=== PATIENT | female | born 1965 | race Caucasian/White ===

== ENCOUNTER → 2017-03-27 10:46 | Outpatient (CLI) | payer OTHER, SELFPAY ==
[2017-03-27 12:32] LABS: Absolute Lymphocyte Count 1.79 X10^3/ul (0.83-4.51); Absolute Neutrophil Count 3.3 X10^3/uL (2.0-7.7); Basophil# 0.04 X10^3/uL; Basophil% 0.7 % (0-1); Eosinophil# 0.25 X10^3/uL; Eosinophils% 4.2 % (0-5); Hematocrit 40.2 % (37-47); Hemoglobin 13.5 g/dl (12.0-15.0); Lymphocyte # 1.79 X10^3/ul (4.0); Lymphocyte % 30.3 % (19-41); Mean Corp Hgb Conc 33.6 g/gl (32-36); Mean Corpuscular Hgb 32.9 pg (27.0-32.0); Mean Platelet Vol. 12.9 fl (6.2-12.0); Monocyte# 0.49 X10^3/uL; Monocyte% 8.3 % (0-10); Neutrophil # 3.32 X10^3/uL (2.7-7.7); Neutrophil % 56.3 % (47-70); Platelet Count 201 K/mm3 (150-450); RBC Distribution Width CV 13.3 % (11.6-14.6); RBC Distribution Width SD 46.2 fl (35.1-43.9); White Blood Count 5.9 K/mm3 (4.4-11.0)
[2017-03-27 12:36] LABS: ALB/GLOB Ratio 1.2 RATIO (0.9-2.4); AST(SGOT) 13 U/L (15-37); Alanine Aminotransfer ALT/SGPT 23 U/L (12-78); Albumin, Serum 3.7 g/dL (3.4-5.0); Alkaline Phosphatase 80 U/L (45-117); Anion Gap 9 (5-15); BUN 13 mg/dL (7-18); Calcium,Total 8.6 mg/dL (8.5-10.1); Chloride 108 mmol/L (98-107); Creatinine, Serum 0.87 mg/dL (0.55-1.02); EST Glomerular Filtration Rate 73 mL/min (>60); Est Glom Filt Rate - Afr Amer 88 mL/min (>60); Globulin 3.2 g/dL (2.2-4.2); Glucose 88 mg/dL (70-110); POSITIVE COUNT NO; POSITIVE DIFFERENTIAL NO; POSITIVE MORPHOLOGY NO; Potassium 3.8 mmol/L (3.5-5.1); Protein, Total 6.9 g/dL (6.4-8.2); Sodium Level 141 mmol/L (136-145)
== END ==
PROVIDERS: Family Provider Family Medicine; PCP Family Medicine; Visit Provider Internal Medicine Rheumatology
DX: M06.4 Inflammatory polyarthropathy (principal); L98.2 Febrile neutrophilic dermatosis [Sweet]; R51 Headache; J45.909 Unspecified asthma, uncomplicated; Z79.899 Other long term (current) drug therapy
CPT/HCPCS: 36415; 80053; 85025

== ENCOUNTER 2017-05-14 06:21 | Day surgery (SDC) | payer OTHER, SELFPAY ==
--- NOTE | 2017-05-13 22:41 | HP.PCM_ITS ---
History and Physical Date of Admission: 05/14/17 HISTORY OF PRESENT ILLNESS 51 year old woman presents with a soft tissue mass on her central upper forehead that has increased in size over the last several months and has become more raised in configuration. It is mobile. She denies any trauma. She denies any recent infection. She denies any drainage or bleeding. She denies any visual problems. She denies any headaches. PAST MEDICAL HISTORY Asthma. Breast cyst. Pneumonia. Sweet's syndrome - an RA syndrome. Hypothyroidism. Increased cholesterol. PAST SURGICAL HISTORY T&A - 1968. Bilateral bunion surgery - 1981. MEDICATIONS Proair. Ventolin. Folic Acid. Thyroid medication. Methotrexate. Trazodone. Fluticasone-Salmeterol. ALLERGIES None. SOCIAL HISTORY Patient does not smoke. Patient does not drink alcohol. FAMILY HISTORY Negative for skin cancer. Myocarditis - Mother. AIDS - Brother. Anal cancer - Brother. REVIEW OF SYSTEMS General - Denies fever, fatigue, and weight loss. ENT - Denies nasal congestion and sore throat. Eyes - Denies cataracts and glaucoma. Endocrine - Has thyroid disease. Denies excessive thirst and urination. Skin - Has an enlarging soft tissue mass central upper forehead. Musculoskeletal - Denies joint pain, joint stiffness, weakness of muscles and joints and back pain, Has arthritis. Neuro - Denies headaches. Cardiovascular - Denies chest pain. Denies fatigue. Denies shortness of breath with exertion. Psych - Denies anxiety and depression. Respiratory - Has shortness of breath and asthma and chronic cough. Gastrointestinal - Denies nausea, vomiting, diarrhea, and constipation. Hematologic - Denies abnormal bruising and bleeding. Genitourinary - Denies hematuria and urinary frequency. PHYSICAL EXAMINATION General - Alert and oriented. HEENT - PERRL. EOMI. Throat clear. On the central upper forehead is a 1.5 cm soft tissue mass. It is mobile. The skin does not appear to be adherent to the underlying soft tissue mass. Does not appear to be adherent to the underlying bone. It is raised in configuration. No ulceration. She is able to elevate her eyebrows symmetrically. Neck - Supple and nontender. No cervical adenopathy. No suspicious lesions noted. Chest wall - No suspicious lesions noted. Lungs - Clear to auscultation. Heart - Regular rate and rhythm. Abdomen - Soft and nondistended. Extremities - FROM. No axillary adenopathy. Radial pulses are palpable. No suspicious lesions noted. Neuro - CN II - XII grossly intact. ASSESSMENT 1.5 cm soft tissue mass central upper forehead. PLAN Recommend excision of this soft tissue mass central upper forehead and send it to Pathology for analysis to rule out carcinoma. Pretty commonly, these forehead soft tissue masses are submuscular in origin. Should be able to close the skin primarily. If extra skin needs to be removed, then local skin flap reconstruction would be done or possibly skin grafting. Surgery will be done under local anesthesia and IV sedation on an outpatient basis. Patient was informed of the risks and complications of the procedure including alternatives to surgery. These were discussed with her personally. She voices understanding and wishes to proceed. Some of the risks and complications were included in a form from the [employer].
[2017-05-14] VITALS (7 sets, daily range): BP systolic 108–116; BP diastolic 59–92; PULSE 73–81; RESP 16; TEMP 36.1–36.4; O2SAT 93–99; BMI 30.7
--- NOTE | 2017-05-14 08:00 | MASS_PTH ---
PATIENT: PANCHO SMITH [place] [facility] [place][id number] AGE/SX: 51/F ROOM: RE05/14/[address]: Dr. Leif Singh MD : 1965 BED: DIS: 05/14/2017 SPEC #: [id number] RECD: 05/14/17 11:06 STATUS: PRAMOD SONU #: [id number] LORELEI: 05/14/17 08:[address]: Leif Singh DEPT: SURGICAL PATHOLOGY RECD BY: Jaci Day ENTERED: 05/14/17 11:34 SP TYPE: Mass OTHR DR: Dr. Chastity Huff, DO Tissues: Skin of forehead Procedures: Decalcification bone/plaque Surgery Specimen Level IV HEADER OPERATION: Excision, mass soft tissue central upper forehead PRE-OP DIAGNOSIS: 1.5cm soft tissue mass central upper forehead TISSUE SUBMITTED: Bone cyst, central upper forehead MICROSCOPIC DIAGNOSIS Bone cyst of central upper forehead, excision: Cortical bone with mild reactive change. AM:neema 05/20/17 MICROSCOPIC DESCRIPTION Slides are reviewed. GROSS DESCRIPTION Received in fixative is one container labeled with the patient's name and designated bone cyst, central upper forehead. The specimen consists of a round piece of bone measuring 1 x 1 x 0.2 cm. The specimen will be serially sectioned after decalcification and submitted entirely in one cassette. / SJ:neema 05/14/17 TC:5 [facility]: [id number], [id number]
[2017-05-14] MEDS: Clindamycin 900 MG/50 ML BAG 75 MG IV (08:02)
[2017-05-14] MEDS: Mupirocin Ointment 22gm Tube 1 APPLIC (08:28)
--- NOTE | 2017-05-14 08:51 | PCM.IMDPSTOP ---
Immediate Post-Op Note Date of Procedure: 05/14/17 Primary Surgeon/Physician: Leif Singh director biomedical engineering: None Pre-Operative Diagnosis: 1.5 cm soft tissue mass central upper forehead. Post-Operative Diagnosis: 1.5 cm submuscular bone cystic mass central upper forehead. Surgery/Procedure Performed:: Excision 1.5 cm submuscular bone cystic mass central upper forehead with 1.5 cm complex closure. Description of Surgical Findings:: 51 year old woman presents with a soft tissue mass on her central upper forehead that has increased in size over the last several months and has become more raised in configuration. It is mobile. She denies any trauma. She denies any recent infection. She denies any drainage or bleeding. She denies any visual problems. She denies any headaches. Today the patient underwent 1.5 cm submuscular bone cyst central upper forehead with 1.5 cm complex closure. Estimated Blood Loss: 2 ml. Specimen's removed: Submuscular bone cystic mass central upper forehead to Pathology. Drains: None. Type of Anesthesia:: Local MAC - Xylocaine with epinephrine and IV sedation. - Admit VTE Documentation VTE Present on Admission: No VTE Mechan Device Prophylaxis: SCD's VTE Pharm Prophylaxis ordered?: No
--- NOTE | 2017-05-14 08:59 | PCM.DC ---
You will use the following diet at home:: No restrictions Discharge Activity: May Shower - in two days., - - keep head elevated. no heavy lifting. May shower in (days): 2 May resume sexual activity in: No Restrictions Ice area for (Minutes): 5 - as needed for facial swelling. Weight Bearing Status: Weight bearing as tolerated Lifting Restrictions: 20 lbs. Keep extremity elevated above heart level: - - head elevated. Call your doctor if your incision/area has: Continuous Slow Oozing, Sudden Increased Bleeding, Increased Pain/ Swelling, Increased Redness, Foul Smelling Discharge, Swelling at the incision site Call your doctor if you observe: Fever of 101 or Higher, Coldness, Increased Pain, Shortness of breath, Chest pain, Calf discomfort, Uncontrolled pain Suture Line Care: - - after dressing removed in two days, apply antibiotic ointment to suture line daily. Remove Dressing in (days):: 2 Cleanse incision/area with: - - may get incision wet in the shower in two days. Allergies/Adverse Reactions: Allergies No Known Allergies Allergy (Verified 05/07/17 08:12) Medications to take at Discharge fluticasone 500 mcg-salmeterol 50 mcg/dose blistr powdr for inhalation 1 inh INHALATION BID 03/31/17 folic acid 1 mg tablet 1 mg PO QDAY 03/31/17 levothyroxine 88 mcg capsule 88 mcg PO QDAY cap 03/31/17 methotrexate sodium 2.5 mg tablet 15 mg PO QWEEK tab 03/31/17 Albuterol IH (ProAir) [Proair Hfa] 1 - 2 puff INHALATION Q6H PRN PRN 05/07/17 Albuterol Inhaler [Ventolin Hfa] 1 - 2 puff INHALATION Q6H PRN PRN 05/07/17 Trazodone HCl [Desyrel] 50 mg PO QHS 05/07/17 Clindamycin HCl [Cleocin] 300 mg PO TID #15 cap 05/14/17 Oxycodone HCl/Acetaminophen [Percocet 5/325] 1 - 2 tab PO 4X/DAY PRN PRN 3 Days #20 tab 05/14/17 The following prescriptions were given: Oxycodone HCl/Acetaminophen [Percocet 5/325] 1 - 2 tab PO 4X/DAY PRN PRN 3 Days #20 tab PRN Reason: Pain Clindamycin HCl [Cleocin] 300 mg PO TID #15 cap Primary Care Physician: Chastity Huff DO [Primary Care Provider] - Please Follow Up With: Leif Singh MD When: one week. call [phone] for appt. Proposed Discharge Date: 05/14/17
--- NOTE | 2017-05-14 23:03 | OP.PCM_ITS ---
Report of Operation Date of Procedure: 05/14/17 Pre-Operative Diagnosis: 1.5 cm soft tissue mass central upper forehead. Post-Operative Diagnosis: 1.5 cm submuscular bone cystic mass central upper forehead. Surgery/Procedure Performed:: Excision 1.5 cm submuscular bone cystic mass central upper forehead with 1.5 cm complex closure. Description of Surgical Findings:: 51 year old woman presents with a soft tissue mass on her central upper forehead that has increased in size over the last several months and has become more raised in configuration. It is mobile. She denies any trauma. She denies any recent infection. She denies any drainage or bleeding. She denies any visual problems. She denies any headaches. Patient was informed of the risks and complications of the procedure including alternatives to surgery. These were discussed with her personally. She voices understanding and wishes to proceed. Some of the risks and complications were included in a form from the [employer]. 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 Specimen's removed: Submuscular bone cystic mass central upper forehead to Pathology. Drains: None. Estimated Blood Loss (mL): 2 ml. Description of Procedure: Patient was taken to OR in supine position and was given IV sedation. Her face and neck were prepped and draped in usual fashion. SCD's were placed for DVT prophylaxis. Perioperative antibiotics were given intravenously. The mass central upper forehead was infiltrated with xylocaine with epinephrine. After waiting 5 minutes for the anesthetic to take effect, a horizontal incision was made in a previous horizontal skin crease. The incision extended into the subcutaneous tissue. When I reached the frontalis muscle, there was no evidence of any subcutaneous soft tissue mass. I made a vertical incision through the muscle until the periosteum of the skull was seen. Further palpation was done and the mass appeared to be a submuscular bone cystic mass. Therefore, I used an osteotome and a mallet and tangentially excised this bone mass. After the excision, the bony base of the mass was smooth. Clinically there was no evidence of infiltration into the skull bone. The bone cystic mass was sent to Pathology for analysis to rule out carcinoma. The wound was irrigated with saline. Hemostasis was obtained with electrocautery. The wound was closed in a multiple layered complex closure repair. The frontalis muscle layer was approximated with 5-0 Monocryl figure of eight interrupted sutures. The deep dermis and subcutaneous tissue was approximated with 5-0 Monocryl interrupted sutures. The skin was approximated with 6-0 Prolene simple interrupted sutures. Steri strips were applied followed by antibiotic ointment and a small 2x2 gauze compression dressing. The length of the complex closure repair was 1.5 cm. Patient tolerated the procedure well and was sent to PACU in satisfactory condition. She will be sent home on antibiotics and pain medication. She will keep her head elevated during the initial postop period. She will followup in the office in a week for a wound check as well as for discussion of the pathology report and for removal of the sutures. Grafts/Implants Used: None. - Complications None. - Admit VTE Documentation VTE Present on Admission: No VTE Mechan Device Prophylaxis: SCD's VTE Pharm Prophylaxis ordered?: No Code Visit Surgery Charges CPT - 67424 ICD-10 - D49.2
== END 2017-05-14 10:03 | disposition home or self-care (01) ==
LOC: SDC 06:24 → AC 06:24
PROVIDERS: Family Provider Family Medicine; PCP Family Medicine; Visit Provider Surgery
PROC: (CPT 61500; principal; 2017-05-14 07:45)
DX: M85.48 Solitary bone cyst, other site (principal); E78.00 Pure hypercholesterolemia, unspecified; D68.9 Coagulation defect, unspecified; J45.909 Unspecified asthma, uncomplicated; L98.2 Febrile neutrophilic dermatosis [Sweet]; Z79.899 Other long term (current) drug therapy
CPT/HCPCS: 00210; 61500; 88305; 88311; J3010; J7120

== ENCOUNTER → 2017-06-17 08:59 | Outpatient (CLI) | payer OTHER, SELFPAY ==
[2017-06-17 09:22] LABS: Absolute Lymphocyte Count 1.66 X10^3/ul (0.83-4.51); Absolute Neutrophil Count 3.7 X10^3/uL (2.0-7.7); Basophil# 0.03 X10^3/uL; Basophil% 0.5 % (0-1); Eosinophil# 0.81 X10^3/uL; Eosinophils% 12.4 % (0-5); Lymphocyte # 1.66 X10^3/ul (4.0); Lymphocyte % 25.3 % (19-41); Mean Corp Hgb Conc 33.3 g/gl (32-36); Mean Corpuscular Hgb 32.5 pg (27.0-32.0); Mean Corpuscular Volume 97.4 fL (81-99); Mean Platelet Vol. 12.2 fl (6.2-12.0); Monocyte# 0.37 X10^3/uL; Monocyte% 5.6 % (0-10); Neutrophil # 3.66 X10^3/uL (2.7-7.7); Neutrophil % 55.9 % (47-70); POSITIVE COUNT NO; POSITIVE DIFFERENTIAL NO; POSITIVE MORPHOLOGY NO; Platelet Count 139 K/mm3 (150-450); RBC Distribution Width CV 13.4 % (11.6-14.6); Red Blood Count 4.62 M/mm3 (4.2-5.4); White Blood Count 6.6 K/mm3 (4.4-11.0)
[2017-06-17 17:47] LABS: Absolute Lymphocyte Count 2.28 X10^3/ul (0.83-4.51); Basophil# 0.04 X10^3/uL; Basophil% 0.6 % (0-1); Eosinophil# 0.16 X10^3/uL; Eosinophils% 2.3 % (0-5); Hematocrit 41.4 % (37-47); Hemoglobin 13.7 g/dl (12.0-15.0); Lymphocyte # 2.28 X10^3/ul (4.0); Lymphocyte % 32.6 % (19-41); Mean Corp Hgb Conc 33.1 g/gl (32-36); Mean Corpuscular Hgb 32.5 pg (27.0-32.0); Mean Corpuscular Volume 98.3 fL (81-99); Mean Platelet Vol. 12.9 fl (6.2-12.0); Monocyte# 0.53 X10^3/uL; Monocyte% 7.6 % (0-10); Neutrophil # 3.98 X10^3/uL (2.7-7.7); Neutrophil % 56.8 % (47-70); Platelet Count 195 K/mm3 (150-450); RBC Distribution Width CV 13.3 % (11.6-14.6); RBC Distribution Width SD 46.6 fl (35.1-43.9); Red Blood Count 4.21 M/mm3 (4.2-5.4)
[2017-06-17 17:55] LABS: POSITIVE COUNT NO; POSITIVE DIFFERENTIAL NO; POSITIVE MORPHOLOGY NO
[2017-06-17 18:32] LABS: ALB/GLOB Ratio 1.1 RATIO (0.9-2.4); AST(SGOT) 28 U/L (15-37); Alanine Aminotransfer ALT/SGPT 55 U/L (13-56); Albumin, Serum 3.8 g/dL (3.2-5.0); Alkaline Phosphatase 87 U/L (45-117); Anion Gap 6 (5-15); BUN 13 mg/dL (7-18); BUN/Creat Ratio 14.6 RATIO (10-20); Calcium,Total 9.2 mg/dL (8.5-10.1); Chloride 107 mmol/L (98-107); Creatinine, Serum 0.89 mg/dL (0.55-1.02); EST Glomerular Filtration Rate 70 mL/min (>60); Est Glom Filt Rate - Afr Amer 85 mL/min (>60); Globulin 3.4 g/dL (2.2-4.2); Glucose 76 mg/dL (74-106); Potassium 4.3 mmol/L (3.5-5.1); Protein, Total 7.2 g/dL (6.4-8.2); Sodium Level 142 mmol/L (136-145)
== END ==
PROVIDERS: Family Provider Family Medicine; PCP Family Medicine; Visit Provider Internal Medicine Rheumatology
DX: M06.4 Inflammatory polyarthropathy (principal); L98.2 Febrile neutrophilic dermatosis [Sweet]; R51 Headache; J45.909 Unspecified asthma, uncomplicated; Z79.899 Other long term (current) drug therapy
CPT/HCPCS: 36415; 80053; 85025

== ENCOUNTER → 2017-08-10 07:25 | Outpatient (CLI) | payer OTHER, SELFPAY ==
--- NOTE | 2017-08-10 07:25 | DT_ITS ---
This patient was seen during an EMR downtime August 03, 2017 - August 10, 2017. This patient may have a combination of paper and electronic documentation or all paper documentation. All documentation is viewable within the e-chart portion of [facility] for each patient visit.
--- NOTE | 2017-08-10 07:28 | BI_ITS ---
MAMMOGRAPHY - BILATERAL SCREENING REASON FOR EXAM: Female, 51 years old. Routine annual screening examination. PERTINENT HISTORY: Non-contributory. TECHNIQUE: Digital bilateral breast aggie (3D mammographic acquisition) in the CC and MLO projections. 2-D mediolateral oblique (MLO) and craniocaudad (CC) views of both breasts were obtained. CAD: Full Field Digital Mammography with Computer Added Detection was performed. COMPARISON: Comparison is made with prior examination dated October 24, 2015 and December 19, 2013. FINDINGS: Breast Composition: The breasts are heterogeneously dense, which may obscure small masses. There are no dominant masses or suspicious calcifications. No other significant abnormalities are identified. There has been no significant change since the prior study. BI/SCREENING MAMM (CAD), BILAT IMPRESSION: Stable bilateral screening mammogram. Yearly follow-up mammogram recommended. (A) ASSESSMENT CATEGORY: BIRADS Category 1: Negative. A letter regarding these results will be sent to the patient by the facility within 30 days. Approximately 10% of breast cancers are not detected by mammography. A normal mammogram should not delay biopsy of a clinically suspicious abnormality. [id number] Electronically Signed: Rhys Ojeda MD at 12:26 EDT Tel [phone], Service support ,
== END ==
PROVIDERS: Family Provider Family Medicine; PCP Family Medicine; Visit Provider Family Medicine
DX: Z12.31 Encounter for screening mammogram for malignant neoplasm of breast (principal)
CPT/HCPCS: 77063; 77067

== ENCOUNTER → 2017-09-22 09:10 | Outpatient (CLI) | payer OTHER, SELFPAY ==
[2017-09-22 10:34] LABS: Basophil# 0.02 X10^3/uL; Basophil% 0.3 % (0-1); Eosinophil# 0.13 X10^3/uL; Eosinophils% 2.1 % (0-5); Hematocrit 44.4 % (37-47); Hemoglobin 14.6 g/dl (12.0-15.0); Lymphocyte % 24.6 % (19-41); Mean Corp Hgb Conc 32.9 g/gl (32-36); Mean Corpuscular Hgb 32.2 pg (27.0-32.0); Mean Corpuscular Volume 97.8 fL (81-99); Mean Platelet Vol. 13.7 fl (6.2-12.0); Monocyte% 6.6 % (0-10); Neutrophil # 4.04 X10^3/uL (2.7-7.7); Neutrophil % 66.4 % (47-70); Platelet Count 192 K/mm3 (150-450); RBC Distribution Width CV 13.2 % (11.6-14.6); RBC Distribution Width SD 47.6 fl (35.1-43.9); Red Blood Count 4.54 M/mm3 (4.2-5.4); White Blood Count 6.1 K/mm3 (4.4-11.0)
[2017-09-22 10:35] LABS: POSITIVE COUNT NO; POSITIVE DIFFERENTIAL NO; POSITIVE MORPHOLOGY NO
[2017-09-22 11:21] LABS: AST(SGOT) 24 U/L (15-37); Alanine Aminotransfer ALT/SGPT 38 U/L (13-56); Albumin, Serum 3.7 g/dL (3.2-5.0); Alkaline Phosphatase 93 U/L (45-117); Anion Gap 7 (5-15); BUN 14 mg/dL (7-18); BUN/Creat Ratio 14.6 RATIO (10-20); Calcium,Total 9.5 mg/dL (8.5-10.1); Chloride 108 mmol/L (98-107); Creatinine, Serum 0.96 mg/dL (0.55-1.02); EST Glomerular Filtration Rate 65 mL/min (>60); Est Glom Filt Rate - Afr Amer 78 mL/min (>60); Globulin 3.8 g/dL (2.2-4.2); Glucose 76 mg/dL (74-106); Potassium 3.9 mmol/L (3.5-5.1); Protein, Total 7.5 g/dL (6.4-8.2); Sodium Level 144 mmol/L (136-145)
== END ==
PROVIDERS: Family Provider Family Medicine; PCP Family Medicine; Visit Provider Internal Medicine Rheumatology
DX: M06.4 Inflammatory polyarthropathy (principal); L98.2 Febrile neutrophilic dermatosis [Sweet]; R51 Headache; J45.909 Unspecified asthma, uncomplicated; Z79.899 Other long term (current) drug therapy
CPT/HCPCS: 36415; 80053; 85025

== ENCOUNTER → 2017-12-11 11:11 | Outpatient (CLI) | payer OTHER, SELFPAY ==
[2017-12-11 12:37] LABS: Absolute Lymphocyte Count 1.98 X10^3/ul (0.83-4.51); Absolute Neutrophil Count 4.6 X10^3/uL (2.0-7.7); Basophil# 0.05 X10^3/uL; Basophil% 0.7 % (0-1); Eosinophil# 0.16 X10^3/uL; Eosinophils% 2.2 % (0-5); Hematocrit 43.1 % (37-47); Hemoglobin 14.1 g/dl (12.0-15.0); Lymphocyte # 1.98 X10^3/ul (4.0); Lymphocyte % 27.1 % (19-41); Mean Corp Hgb Conc 32.7 g/gl (32-36); Mean Corpuscular Hgb 31.7 pg (27.0-32.0); Mean Corpuscular Volume 96.9 fL (81-99); Mean Platelet Vol. 13.5 fl (6.2-12.0); Monocyte# 0.48 X10^3/uL; Monocyte% 6.6 % (0-10); Neutrophil # 4.63 X10^3/uL (2.7-7.7); Neutrophil % 63.4 % (47-70); Platelet Count 190 K/mm3 (150-450); RBC Distribution Width CV 14.1 % (11.6-14.6); RBC Distribution Width SD 49.8 fl (35.1-43.9); Red Blood Count 4.45 M/mm3 (4.2-5.4); White Blood Count 7.3 K/mm3 (4.4-11.0)
[2017-12-11 12:38] LABS: POSITIVE COUNT NO; POSITIVE DIFFERENTIAL NO; POSITIVE MORPHOLOGY NO
[2017-12-11 13:08] LABS: AST(SGOT) 19 U/L (15-37); Alanine Aminotransfer ALT/SGPT 44 U/L (13-56); Albumin, Serum 3.6 g/dL (3.2-5.0); Alkaline Phosphatase 93 U/L (45-117); Anion Gap 8 (5-15); BUN 9 mg/dL (7-18); BUN/Creat Ratio 10.7 RATIO (10-20); Chloride 108 mmol/L (98-107); Creatinine, Serum 0.84 mg/dL (0.55-1.02); EST Glomerular Filtration Rate 75 mL/min (>60); Est Glom Filt Rate - Afr Amer 91 mL/min (>60); Globulin 3.6 g/dL (2.2-4.2); Glucose 72 mg/dL (74-106); Protein, Total 7.2 g/dL (6.4-8.2); Sodium Level 140 mmol/L (136-145)
== END ==
PROVIDERS: Family Provider Family Medicine; PCP Family Medicine; Referring Provider Internal Medicine Rheumatology; Visit Provider Internal Medicine Rheumatology
DX: M06.4 Inflammatory polyarthropathy (principal); L98.2 Febrile neutrophilic dermatosis [Sweet]; R51 Headache; J45.909 Unspecified asthma, uncomplicated; Z79.899 Other long term (current) drug therapy
CPT/HCPCS: 36415; 80053; 85025

== ENCOUNTER → 2018-03-13 08:03 | Outpatient (CLI) | payer OTHER, SELFPAY ==
[2018-03-13 08:03] VITALS: BMI 29.2
[2018-03-13 08:41] LABS: Absolute Lymphocyte Count 1.96 X10^3/ul (0.83-4.51); Absolute Neutrophil Count 2.9 X10^3/uL (2.0-7.7); Basophil# 0.04 X10^3/uL; Basophil% 0.7 % (0-1); Eosinophil# 0.24 X10^3/uL; Eosinophils% 4.2 % (0-5); Hematocrit 42.8 % (37-47); Hemoglobin 14.2 g/dl (12.0-15.0); Lymphocyte # 1.96 X10^3/ul (4.0); Lymphocyte % 34.6 % (19-41); Mean Corp Hgb Conc 33.2 g/gl (32-36); Mean Corpuscular Hgb 32.7 pg (27.0-32.0); Mean Corpuscular Volume 98.6 fL (81-99); Mean Platelet Vol. 12.5 fl (6.2-12.0); Monocyte# 0.56 X10^3/uL; Monocyte% 9.9 % (0-10); Neutrophil # 2.86 X10^3/uL (2.7-7.7); Neutrophil % 50.4 % (47-70); POSITIVE COUNT NO; POSITIVE DIFFERENTIAL NO; POSITIVE MORPHOLOGY NO; Platelet Count 179 K/mm3 (150-450); RBC Distribution Width CV 13.7 % (11.6-14.6); RBC Distribution Width SD 47.8 fl (35.1-43.9); Red Blood Count 4.34 M/mm3 (4.2-5.4); White Blood Count 5.7 K/mm3 (4.4-11.0)
[2018-03-13 08:55] LABS: ALB/GLOB Ratio 1.1 RATIO (0.9-2.4); AST(SGOT) 32 U/L (15-37); Alanine Aminotransfer ALT/SGPT 93 U/L (13-56); Albumin, Serum 3.6 g/dL (3.2-5.0); Alkaline Phosphatase 94 U/L (45-117); Anion Gap 7 (5-15); BUN 13 mg/dL (7-18); BUN/Creat Ratio 13.1 RATIO (10-20); Calcium,Total 8.9 mg/dL (8.5-10.1); Chloride 110 mmol/L (98-107); Creatinine, Serum 0.99 mg/dL (0.55-1.02); EST Glomerular Filtration Rate 62 mL/min (>60); Est Glom Filt Rate - Afr Amer 75 mL/min (>60); Globulin 3.2 g/dL (2.2-4.2); Glucose 88 mg/dL (74-106); Protein, Total 6.8 g/dL (6.4-8.2); Sodium Level 144 mmol/L (136-145)
== END ==
PROVIDERS: Family Provider Family Medicine; PCP Family Medicine; Referring Provider Internal Medicine Rheumatology; Visit Provider Internal Medicine Rheumatology
DX: M06.4 Inflammatory polyarthropathy (principal); L98.2 Febrile neutrophilic dermatosis [Sweet]; R51 Headache; J45.909 Unspecified asthma, uncomplicated; Z79.899 Other long term (current) drug therapy
CPT/HCPCS: 36415; 80053; 85025

== ENCOUNTER → 2018-04-10 10:18 | Outpatient (CLI) | payer OTHER, SELFPAY ==
[2018-03-13 08:03] VITALS: BMI 29.2
[2018-04-10 12:30] LABS: AST(SGOT) 13 U/L (15-37); Alanine Aminotransfer ALT/SGPT 24 U/L (13-56); Albumin, Serum 3.7 g/dL (3.2-5.0); Alkaline Phosphatase 110 U/L (45-117); Anion Gap 8 (5-15); BUN 14 mg/dL (7-18); BUN/Creat Ratio 13.2 RATIO (10-20); Chloride 108 mmol/L (98-107); Creatinine, Serum 1.06 mg/dL (0.55-1.02); EST Glomerular Filtration Rate 57 mL/min (>60); Est Glom Filt Rate - Afr Amer 69 mL/min (>60); Globulin 3.7 g/dL (2.2-4.2); Glucose 83 mg/dL (74-106); Protein, Total 7.4 g/dL (6.4-8.2); Sodium Level 142 mmol/L (136-145)
== END ==
PROVIDERS: Family Provider Family Medicine; PCP Family Medicine; Referring Provider Internal Medicine Rheumatology; Visit Provider Internal Medicine Rheumatology
DX: M06.4 Inflammatory polyarthropathy (principal); L98.2 Febrile neutrophilic dermatosis [Sweet]; R51 Headache; J45.909 Unspecified asthma, uncomplicated; Z79.899 Other long term (current) drug therapy
CPT/HCPCS: 80053

== ENCOUNTER → 2018-05-20 07:38 | Outpatient (CLI) | payer OTHER, SELFPAY ==
[2018-03-13 08:03] VITALS: BMI 29.2
--- NOTE | 2018-05-20 07:46 | US_ITS ---
STUDY: ABDOMINAL ULTRASOUND - RIGHT UPPER QUADRANT REASON FOR VISIT: Female, 52 years old. Elevated liver enzymes TECHNIQUE: Ultrasound evaluation of the right upper quadrant was performed with real-time and static bravo-scale imaging. TECHNICAL QUALITY: Adequate. COMPARISON: None. FINDINGS: Liver: The liver measures 14.7 cm. There is increased echogenicity consistent with fatty infiltration. The bile ducts are within normal limits. There is hepatic color flow. The direction of portal flow is hepatopetal. There is no demonstrated mass lesion. Gallbladder: Normal distended gallbladder. The gallbladder wall measures 3 mm. There is a negative sonographic Trejo's sign. There is no pericholecystic fluid. There are no gallstones. Common Bile Duct (C.B.D.): The common bile duct measures 4 mm. Pancreas: Normal size of the head, body and tail of the pancreas. There is normal echogenicity of the pancreas. There is no demonstrated pancreatic mass or cyst. Right Kidney: Normal size of the right kidney. The right kidney measures 10.6 cm. Normal renal cortex. The right cortex measures 1.3 cm. There is no demonstrated renal mass or cyst. There is no right hydronephrosis. US/Liver IMPRESSION: Slightly echogenic liver suggesting fatty steatosis Electronically Signed: Joseph Deleon DO at 10:50 EDT Tel , Service support ,
== END ==
PROVIDERS: Family Provider Family Medicine; PCP Family Medicine; Referring Provider Internal Medicine Rheumatology; Visit Provider Internal Medicine Rheumatology
DX: M06.4 Inflammatory polyarthropathy (principal); L98.2 Febrile neutrophilic dermatosis [Sweet]; R51 Headache; J45.909 Unspecified asthma, uncomplicated; Z79.899 Other long term (current) drug therapy
CPT/HCPCS: 76705

== ENCOUNTER → 2018-06-12 09:37 | Outpatient (CLI) | payer OTHER, SELFPAY ==
[2018-03-13 08:03] VITALS: BMI 29.2
[2018-06-12 10:12] LABS: Absolute Lymphocyte Count 1.97 X10^3/ul (0.83-4.51); Absolute Neutrophil Count 3.7 X10^3/uL (2.0-7.7); Basophil# 0.04 X10^3/uL; Basophil% 0.6 % (0-1); Eosinophil# 0.22 X10^3/uL; Eosinophils% 3.3 % (0-5); Hematocrit 44.1 % (37-47); Hemoglobin 14.7 g/dl (12.0-15.0); Lymphocyte # 1.97 X10^3/ul (4.0); Lymphocyte % 29.9 % (19-41); Mean Corp Hgb Conc 33.3 g/gl (32-36); Mean Corpuscular Hgb 31.3 pg (27.0-32.0); Mean Corpuscular Volume 93.8 fL (81-99); Mean Platelet Vol. 12.6 fl (6.2-12.0); Monocyte# 0.61 X10^3/uL; Monocyte% 9.3 % (0-10); Neutrophil # 3.73 X10^3/uL (2.7-7.7); Neutrophil % 56.7 % (47-70); POSITIVE COUNT NO; POSITIVE DIFFERENTIAL NO; POSITIVE MORPHOLOGY NO; Platelet Count 187 K/mm3 (150-450); RBC Distribution Width CV 13.8 % (11.6-14.6); RBC Distribution Width SD 45.3 fl (35.1-43.9); White Blood Count 6.6 K/mm3 (4.4-11.0)
[2018-06-12 10:43] LABS: ALB/GLOB Ratio 1.1 RATIO (0.9-2.4); AST(SGOT) 21 U/L (15-37); Alanine Aminotransfer ALT/SGPT 36 U/L (13-56); Albumin, Serum 3.6 g/dL (3.2-5.0); Alkaline Phosphatase 95 U/L (45-117); Anion Gap 4 (5-15); BUN 10 mg/dL (7-18); BUN/Creat Ratio 9.8 RATIO (10-20); Calcium,Total 9.1 mg/dL (8.5-10.1); Chloride 110 mmol/L (98-107); Creatinine, Serum 1.02 mg/dL (0.55-1.02); EST Glomerular Filtration Rate 60 mL/min (>60); Est Glom Filt Rate - Afr Amer 72 mL/min (>60); Globulin 3.4 g/dL (2.2-4.2); Glucose 91 mg/dL (74-106); Potassium 4.4 mmol/L (3.5-5.1); Sodium Level 142 mmol/L (136-145)
== END ==
PROVIDERS: Family Provider Family Medicine; PCP Family Medicine; Referring Provider Internal Medicine Rheumatology; Visit Provider Internal Medicine Rheumatology
DX: M06.4 Inflammatory polyarthropathy (principal); L98.2 Febrile neutrophilic dermatosis [Sweet]; R51 Headache; J45.909 Unspecified asthma, uncomplicated; Z79.899 Other long term (current) drug therapy
CPT/HCPCS: 36415; 80053; 85025

== ENCOUNTER → 2018-07-01 06:53 | Outpatient (CLI) | payer OTHER, SELFPAY ==
[2018-03-13 08:03] VITALS: BMI 29.2
--- NOTE | 2018-07-01 14:45 | PFTCOMP_ITS ---
COMPLETE PULMONARY FUNCTION TEST INTERPRETATION Brief HPI: Patient is a 52 year old female, currently under the care of Dr. Amin, who presents to [facility] for complete pulmonary function tests secondary to diagnosis of moderate persistent asthma. Respiratory therapist reports good effort and reproducible results. Interpretation: Forced expiration spirometry shows no large airways obstructive ventilatory defect with an FEV1 of 99% predicted. There is no significant bronchodilator response by strict ATS criteria. Spirograms are of good quality and plateau normally. The respiratory flow volume loop shows a normal pattern. Lung volumes by body plethysmography show a normal total lung capacity at 5.04 L, 100% predicted. All other lung volumes are within normal limits. Diffusion capacity by carbon monoxide is normal at 80% predicted. The airway resistance is normal. Compared to previous pulmonary function tests from 08/13/2016, there has been a significant improvement in DLCO by 24%. Impression: These pulmonary function tests are within normal limits and have significantly improved compared to previous.
== END ==
PROVIDERS: Family Provider Family Medicine; PCP Family Medicine; Referring Provider Nurse Practitioner Acute Care; Visit Provider Nurse Practitioner Acute Care
DX: J45.40 Moderate persistent asthma, uncomplicated (principal)
CPT/HCPCS: 94060; 94726; 94729

== ENCOUNTER → 2018-09-18 09:16 | Outpatient (CLI) | payer OTHER, SELFPAY ==
[2018-07-13 06:42] VITALS: BMI 32.4
[2018-09-18 10:26] LABS: Absolute Lymphocyte Count 2.32 X10^3/uL (0.83-4.51); Absolute Neutrophil Count 5.2 X10^3/uL (2.0-7.7); Basophil# 0.07 X10^3/uL; Basophil% 0.8 % (0-1); Eosinophil# 0.19 X10^3/uL; Eosinophils% 2.3 % (0-5); Hematocrit 44.6 % (37-47); Hemoglobin 14.8 g/dL (12.0-15.0); Lymphocyte # 2.32 X10^3/ul (4.0); Lymphocyte % 27.7 % (19-41); Mean Corp Hgb Conc 33.2 g/dL (32-36); Mean Corpuscular Hgb 32.4 pg (27.0-32.0); Mean Corpuscular Volume 97.6 fL (81-99); Mean Platelet Vol. 13.1 fl (6.2-12.0); Monocyte% 7.2 % (0-10); NRBC Flagged by Analyzer 0 % (0-5); Neutrophil # 5.15 X10^3/uL (2.7-7.7); Neutrophil % 61.5 % (47-70); Platelet Count 203 K/mm3 (150-450); RBC Distribution Width CV 13.5 % (11.6-14.6); RBC Distribution Width SD 48.1 fl (35.1-43.9); Red Blood Count 4.57 M/mm3 (4.2-5.4); White Blood Count 8.4 K/mm3 (4.4-11.0)
[2018-09-18 10:52] LABS: AST(SGOT) 16 U/L (15-37); Alanine Aminotransfer ALT/SGPT 31 U/L (13-56); Albumin, Serum 3.6 g/dL (3.2-5.0); Alkaline Phosphatase 107 U/L (45-117); Anion Gap 2 (5-15); BUN 10 mg/dL (7-18); Chloride 106 mmol/L (98-107); EST Glomerular Filtration Rate 62 mL/min (>60); Est Glom Filt Rate - Afr Amer 74 mL/min (>60); Globulin 3.5 g/dL (2.2-4.2); Glucose 85 mg/dL (74-106); Potassium 3.8 mmol/L (3.5-5.1); Protein, Total 7.1 g/dL (6.4-8.2); Sodium Level 137 mmol/L (136-145)
== END ==
PROVIDERS: Family Provider Family Medicine; PCP Family Medicine; Referring Provider Internal Medicine Rheumatology; Visit Provider Internal Medicine Rheumatology
DX: M06.4 Inflammatory polyarthropathy (principal); L98.2 Febrile neutrophilic dermatosis [Sweet]; R51 Headache; J45.909 Unspecified asthma, uncomplicated; Z79.899 Other long term (current) drug therapy
CPT/HCPCS: 36415; 80053; 85025

== ENCOUNTER → 2018-12-22 12:44 | Outpatient (CLI) | payer OTHER, SELFPAY ==
[2018-07-13 06:42] VITALS: BMI 32.4
[2018-12-22 14:30] LABS: Absolute Lymphocyte Count 2.21 X10^3/uL (0.83-4.51); Absolute Neutrophil Count 3.5 X10^3/uL (2.0-7.7); Basophil# 0.05 X10^3/uL; Basophil% 0.8 % (0-1); Eosinophil# 0.22 X10^3/uL; Eosinophils% 3.4 % (0-5); Hematocrit 41.7 % (37-47); Hemoglobin 13.9 g/dL (12.0-15.0); Lymphocyte # 2.21 X10^3/ul (4.0); Mean Corp Hgb Conc 33.3 g/dL (32-36); Mean Corpuscular Hgb 31.8 pg (27.0-32.0); Mean Corpuscular Volume 95.4 fL (81-99); Monocyte# 0.48 X10^3/uL; Monocyte% 7.4 % (0-10); NRBC Flagged by Analyzer 0 % (0-5); Neutrophil # 3.53 X10^3/uL (2.7-7.7); Neutrophil % 54.2 % (47-70); Platelet Count 220 K/mm3 (150-450); RBC Distribution Width CV 13.4 % (11.6-14.6); RBC Distribution Width SD 47.6 fl (35.1-43.9); Red Blood Count 4.37 M/mm3 (4.2-5.4); White Blood Count 6.5 K/mm3 (4.4-11.0)
[2018-12-22 15:04] LABS: AST(SGOT) 20 U/L (15-37); Alanine Aminotransfer ALT/SGPT 38 U/L (13-56); Albumin, Serum 3.6 g/dL (3.2-5.0); Alkaline Phosphatase 93 U/L (45-117); Anion Gap 7 (5-15); BUN 10 mg/dL (7-18); BUN/Creat Ratio 10.3 RATIO (10-20); Chloride 109 mmol/L (98-107); Creatinine, Serum 0.97 mg/dL (0.55-1.02); EST Glomerular Filtration Rate 63 mL/min (>60); Est Glom Filt Rate - Afr Amer 76 mL/min (>60); Globulin 3.5 g/dL (2.2-4.2); Glucose 88 mg/dL (74-106); Potassium 3.7 mmol/L (3.5-5.1); Protein, Total 7.1 g/dL (6.4-8.2); Sodium Level 141 mmol/L (136-145)
== END ==
PROVIDERS: Family Provider Family Medicine; PCP Family Medicine; Referring Provider Internal Medicine Rheumatology; Visit Provider Internal Medicine Rheumatology
DX: M06.4 Inflammatory polyarthropathy (principal); L98.2 Febrile neutrophilic dermatosis [Sweet]; K76.0 Fatty (change of) liver, not elsewhere classified; R51 Headache; J45.909 Unspecified asthma, uncomplicated; Z79.899 Other long term (current) drug therapy
CPT/HCPCS: 36415; 80053; 85025

== ENCOUNTER → 2019-03-29 16:53 | Outpatient (CLI) | payer OTHER, SELFPAY ==
[2019-01-17 07:31] VITALS: BMI 34.1
[2019-03-29 17:37] LABS: Absolute Lymphocyte Count 2.26 X10^3/uL (0.83-4.51); Absolute Neutrophil Count 4.3 X10^3/uL (2.0-7.7); Basophil# 0.05 X10^3/uL; Basophil% 0.7 % (0-1); Eosinophil# 0.18 X10^3/uL; Eosinophils% 2.5 % (0-5); Hematocrit 44.8 % (37-47); Hemoglobin 14.6 g/dL (12.0-15.0); Lymphocyte # 2.26 X10^3/ul (4.0); Lymphocyte % 31.5 % (19-41); Mean Corp Hgb Conc 32.6 g/dL (32-36); Mean Corpuscular Hgb 31.7 pg (27.0-32.0); Mean Corpuscular Volume 97.2 fL (81-99); Mean Platelet Vol. 12.6 fl (6.2-12.0); Monocyte# 0.36 X10^3/uL; NRBC Flagged by Analyzer 0 % (0-5); Neutrophil # 4.29 X10^3/uL (2.7-7.7); Neutrophil % 59.9 % (47-70); Platelet Count 252 K/mm3 (150-450); RBC Distribution Width CV 13.5 % (11.6-14.6); RBC Distribution Width SD 47.8 fl (35.1-43.9); Red Blood Count 4.61 M/mm3 (4.2-5.4); White Blood Count 7.2 K/mm3 (4.4-11.0)
[2019-03-29 18:14] LABS: AST(SGOT) 64 U/L (15-37); Alanine Aminotransfer ALT/SGPT 95 U/L (13-56); Albumin, Serum 3.9 g/dL (3.2-5.0); Alkaline Phosphatase 106 U/L (45-117); Anion Gap 3 (5-15); BUN 13 mg/dL (7-18); BUN/Creat Ratio 11.8 RATIO (10-20); Calcium,Total 9.5 mg/dL (8.5-10.1); Chloride 107 mmol/L (98-107); EST Glomerular Filtration Rate 55 mL/min (>60); Est Glom Filt Rate - Afr Amer 66 mL/min (>60); Globulin 3.8 g/dL (2.2-4.2); Glucose 85 mg/dL (74-106); Protein, Total 7.7 g/dL (6.4-8.2); Sodium Level 139 mmol/L (136-145)
== END ==
PROVIDERS: PCP Family Medicine; Referring Provider Internal Medicine Rheumatology; Visit Provider Internal Medicine Rheumatology
DX: M06.4 Inflammatory polyarthropathy (principal); L98.2 Febrile neutrophilic dermatosis [Sweet]; K76.0 Fatty (change of) liver, not elsewhere classified; J45.909 Unspecified asthma, uncomplicated; R51 Headache; Z79.899 Other long term (current) drug therapy
CPT/HCPCS: 36415; 80053; 85025

== ENCOUNTER → 2019-04-27 16:49 | Outpatient (CLI) | payer OTHER, SELFPAY ==
[2019-01-17 07:31] VITALS: BMI 34.1
[2019-04-27 17:30] LABS: AST(SGOT) 16 U/L (15-37); Alanine Aminotransfer ALT/SGPT 30 U/L (13-56); Albumin, Serum 3.8 g/dL (3.2-5.0); Alkaline Phosphatase 115 U/L (45-117); Anion Gap 5 (5-15); BUN 12 mg/dL (7-18); BUN/Creat Ratio 11.8 RATIO (10-20); Calcium,Total 9.5 mg/dL (8.5-10.1); Chloride 110 mmol/L (98-107); Creatinine, Serum 1.02 mg/dL (0.55-1.02); EST Glomerular Filtration Rate 60 mL/min (>60); Est Glom Filt Rate - Afr Amer 72 mL/min (>60); Glucose 98 mg/dL (74-106); Potassium 3.8 mmol/L (3.5-5.1); Protein, Total 7.8 g/dL (6.4-8.2); Sodium Level 140 mmol/L (136-145)
== END ==
PROVIDERS: PCP Family Medicine; Referring Provider Internal Medicine Rheumatology; Visit Provider Internal Medicine Rheumatology
DX: M06.4 Inflammatory polyarthropathy (principal); L98.2 Febrile neutrophilic dermatosis [Sweet]; K76.0 Fatty (change of) liver, not elsewhere classified; J45.909 Unspecified asthma, uncomplicated; R51 Headache; Z79.899 Other long term (current) drug therapy
CPT/HCPCS: 36415; 80053

== ENCOUNTER → 2019-06-16 16:50 | Outpatient (CLI) | payer OTHER, SELFPAY ==
[2019-01-17 07:31] VITALS: BMI 34.1
[2019-06-16 17:01] LABS: Absolute Lymphocyte Count 2.53 X10^3/uL (0.83-4.51); Absolute Neutrophil Count 5.3 X10^3/uL (2.0-7.7); Basophil# 0.04 X10^3/uL; Basophil% 0.5 % (0-1); Eosinophil# 0.27 X10^3/uL; Eosinophils% 3.1 % (0-5); Hematocrit 45.6 % (37-47); Lymphocyte # 2.53 X10^3/ul (4.0); Lymphocyte % 28.8 % (19-41); Mean Corp Hgb Conc 32.9 g/dL (32-36); Mean Corpuscular Hgb 31.2 pg (27.0-32.0); Mean Corpuscular Volume 94.8 fL (81-99); Mean Platelet Vol. 12.8 fl (6.2-12.0); Monocyte# 0.62 X10^3/uL; Monocyte% 7.1 % (0-10); NRBC Flagged by Analyzer 0 % (0-5); Neutrophil % 60.3 % (47-70); Platelet Count 215 K/mm3 (150-450); RBC Distribution Width CV 13.3 % (11.6-14.6); RBC Distribution Width SD 45.6 fl (35.1-43.9); Red Blood Count 4.81 M/mm3 (4.2-5.4); White Blood Count 8.8 K/mm3 (4.4-11.0)
[2019-06-16 17:21] LABS: AST(SGOT) 42 U/L (15-37); Alanine Aminotransfer ALT/SGPT 90 U/L (13-56); Albumin, Serum 3.8 g/dL (3.2-5.0); Alkaline Phosphatase 98 U/L (45-117); Anion Gap 7 (5-15); BUN 13 mg/dL (7-18); BUN/Creat Ratio 13.2 RATIO (10-20); Calcium,Total 9.4 mg/dL (8.5-10.1); Chloride 107 mmol/L (98-107); Creatinine, Serum 0.99 mg/dL (0.55-1.02); EST Glomerular Filtration Rate 62 mL/min (>60); Est Glom Filt Rate - Afr Amer 75 mL/min (>60); Globulin 3.8 g/dL (2.2-4.2); Glucose 95 mg/dL (74-106); Protein, Total 7.6 g/dL (6.4-8.2); Sodium Level 140 mmol/L (136-145)
== END ==
PROVIDERS: PCP Family Medicine; Referring Provider Internal Medicine Rheumatology; Visit Provider Internal Medicine Rheumatology
DX: M06.4 Inflammatory polyarthropathy (principal); L98.2 Febrile neutrophilic dermatosis [Sweet]; K76.0 Fatty (change of) liver, not elsewhere classified; J45.909 Unspecified asthma, uncomplicated; R51 Headache; Z79.899 Other long term (current) drug therapy
CPT/HCPCS: 36415; 80053; 85025

== ENCOUNTER → 2019-08-06 07:37 | Outpatient (CLI) | payer OTHER, SELFPAY ==
[2019-01-17 07:31] VITALS: BMI 34.1
[2019-08-06 08:33] LABS: Cholesterol 259 mg/dL (200); Free T3 2.4 pg/mL (2.18-3.98); High Density Lipoprotein 43 mg/dL; T4 Free Direct 0.91 ng/dL (0.76-1.46); Thyroid Stim Hormone (TSH) 5.47 uIU/mL (0.358-3.74); Triglycerides 143 mg/dL; Very Low Density Lipoprotein 29 mg/dL (5-40)
== END ==
PROVIDERS: PCP Family Medicine; Referring Provider Family Medicine; Visit Provider Family Medicine
DX: E03.9 Hypothyroidism, unspecified (principal); Z13.220 Encounter for screening for lipoid disorders
CPT/HCPCS: 36415; 80061; 84439; 84443; 84481

== ENCOUNTER → 2019-09-06 07:30 | Outpatient (CLI) | payer OTHER, SELFPAY ==
[2019-01-17 07:31] VITALS: BMI 34.1
[2019-09-06 06:49] VITALS: BMI 33.4
[2019-09-06 08:02] LABS: Absolute Lymphocyte Count 1.98 X10^3/uL (0.83-4.51); Absolute Neutrophil Count 3.8 X10^3/uL (2.0-7.7); Basophil# 0.04 X10^3/uL; Basophil% 0.6 % (0-1); Eosinophil# 0.17 X10^3/uL; Eosinophils% 2.6 % (0-5); Hematocrit 43.1 % (37-47); Hemoglobin 14.3 g/dL (12.0-15.0); Lymphocyte # 1.98 X10^3/ul (4.0); Lymphocyte % 30.7 % (19-41); Mean Corp Hgb Conc 33.2 g/dL (32-36); Mean Corpuscular Hgb 32.3 pg (27.0-32.0); Mean Corpuscular Volume 97.3 fL (81-99); Mean Platelet Vol. 12.9 fl (6.2-12.0); Monocyte# 0.47 X10^3/uL; Monocyte% 7.3 % (0-10); NRBC Flagged by Analyzer 0 % (0-5); Neutrophil # 3.78 X10^3/uL (2.7-7.7); Neutrophil % 58.5 % (47-70); Platelet Count 165 K/mm3 (150-450); RBC Distribution Width SD 45.8 fl (35.1-43.9); Red Blood Count 4.43 M/mm3 (4.2-5.4); White Blood Count 6.5 K/mm3 (4.4-11.0)
[2019-09-06 08:31] LABS: ALB/GLOB Ratio 0.9 RATIO (0.9-2.4); AST(SGOT) 15 U/L (15-37); Alanine Aminotransfer ALT/SGPT 27 U/L (13-56); Albumin, Serum 3.4 g/dL (3.2-5.0); Alkaline Phosphatase 95 U/L (45-117); Anion Gap 5 (5-15); BUN 10 mg/dL (7-18); BUN/Creat Ratio 9.4 RATIO (10-20); Calcium,Total 8.9 mg/dL (8.5-10.1); Chloride 110 mmol/L (98-107); Creatinine, Serum 1.06 mg/dL (0.55-1.02); EST Glomerular Filtration Rate 57 mL/min (>60); Est Glom Filt Rate - Afr Amer 69 mL/min (>60); Globulin 3.9 g/dL (2.2-4.2); Glucose 96 mg/dL (74-106); Potassium 3.9 mmol/L (3.5-5.1); Protein, Total 7.3 g/dL (6.4-8.2); Sodium Level 141 mmol/L (136-145)
[2019-09-08 18:18] LABS: Immunoglobulin E 34 IU/mL (6-495)
[2019-09-09 03:06] LABS: Alternaria tenuis <0.10 kU/L (Class 0); Aspergillus fumigatus <0.10 kU/L (Class 0); Bermuda Grass <0.10 kU/L (Class 0); Birch <0.10 kU/L (Class 0); Black Walnut <0.10 kU/L (Class 0); Cat Hair / Dander,Stand <0.10 kU/L (Class 0); Cedar, Mountain 0.13 kU/L (Class 0/I); Cladosporium herbarum <0.10 kU/L (Class 0); Cockroach, American <0.10 kU/L (Class 0); Cottonwood <0.10 kU/L (Class 0); D farinae Mite <0.10 kU/L (Class 0); D pteronyssinus <0.10 kU/L (Class 0); Dog Epithelia <0.10 kU/L (Class 0); Immunoglobulin E 33 IU/mL (6-495); Mulberry, White <0.10 kU/L (Class 0); Oak, White 0.16 kU/L (Class 0/I); Pecan <0.10 kU/L (Class 0); Penicillium Notatum <0.10 kU/L (Class 0); Pigweed, Rough <0.10 kU/L (Class 0); Ragweed, Short/Common <0.10 kU/L (Class 0); Russian Thistle <0.10 kU/L (Class 0); Sheep Sorrel <0.10 kU/L (Class 0); Sycamore, American 0.14 kU/L (Class 0/I); Timothy Grass <0.10 kU/L (Class 0)
[2019-09-09 21:18] LABS: Mouse Urine <0.10 kU/L (Class 0)
== END ==
PROVIDERS: Internal Medicine Critical Care Medicine; PCP Family Medicine; Referring Provider Internal Medicine Rheumatology; Visit Provider Internal Medicine Rheumatology
DX: M06.4 Inflammatory polyarthropathy (principal); L98.2 Febrile neutrophilic dermatosis [Sweet]; K76.0 Fatty (change of) liver, not elsewhere classified; R51 Headache; J45.909 Unspecified asthma, uncomplicated; E03.9 Hypothyroidism, unspecified; Z13.220 Encounter for screening for lipoid disorders; Z79.899 Other long term (current) drug therapy
CPT/HCPCS: 36415; 80053; 82785; 85025; 86003

== ENCOUNTER → 2019-10-12 16:50 | Outpatient (CLI) | payer OTHER, SELFPAY ==
[2019-09-06 06:49] VITALS: BMI 33.4
[2019-10-12 17:59] LABS: AST(SGOT) 17 U/L (15-37); Alanine Aminotransfer ALT/SGPT 30 U/L (13-56); Albumin, Serum 3.7 g/dL (3.2-5.0); Alkaline Phosphatase 83 U/L (45-117); Anion Gap 4 (5-15); BUN 12 mg/dL (7-18); BUN/Creat Ratio 11.7 RATIO (10-20); Calcium,Total 9.1 mg/dL (8.5-10.1); Chloride 107 mmol/L (98-107); Creatinine, Serum 1.03 mg/dL (0.55-1.02); EST Glomerular Filtration Rate 59 mL/min (>60); Est Glom Filt Rate - Afr Amer 71 mL/min (>60); Globulin 3.7 g/dL (2.2-4.2); Glucose 91 mg/dL (74-106); Potassium 3.8 mmol/L (3.5-5.1); Protein, Total 7.4 g/dL (6.4-8.2); Sodium Level 140 mmol/L (136-145)
== END ==
PROVIDERS: PCP Family Medicine; Referring Provider Internal Medicine Rheumatology; Visit Provider Internal Medicine Rheumatology
DX: M06.4 Inflammatory polyarthropathy (principal); Z79.899 Other long term (current) drug therapy; L98.2 Febrile neutrophilic dermatosis [Sweet]; K76.0 Fatty (change of) liver, not elsewhere classified; R51 Headache; J45.909 Unspecified asthma, uncomplicated
CPT/HCPCS: 36415; 80053

== ENCOUNTER → 2019-12-02 14:37 | Outpatient (CLI) | payer OTHER, SELFPAY ==
[2019-01-17 07:31] VITALS: BMI 34.1
[2019-09-06 06:49] VITALS: BMI 33.4
--- NOTE | 2019-12-02 14:39 | BI_ITS ---
MAMMOGRAPHY - BILATERAL SCREENING REASON FOR EXAM: Female, 54 years old. Routine annual screening examination. PERTINENT HISTORY: Non-contributory. TECHNIQUE: Digital bilateral breast kamlesh (3D mammographic acquisition) in the CC and MLO projections. 2-D mediolateral oblique (MLO) and craniocaudad (CC) views of both breasts were obtained. CAD: Full Field Digital Mammography with Computer Added Detection was performed. COMPARISON: Comparison is made with prior study dated 08/10/2017 and 10/24/2015. FINDINGS: Breast Composition: The breasts are heterogeneously dense, which may obscure small masses. There now is evidence of a centimeter wide 2.2 cm well-defined nodule in the deep upper axillary region of the left breast. There now is evidence of a stellate lesion in the central aspect of the left breast with evidence of microcalcifications. Correlation with ultrasound of both breasts is recommended. No other significant abnormalities are identified. BI/SCREEN MAMM (CAD) W/KAMLESH BILAT IMPRESSION: Nodular density seen in the axillary region of the right breast as well as architectural distortion and spiculated nodule in the central portion of the right breast. Correlation with ultrasound is recommended. ASSESSMENT CATEGORY: BIRADS Category 0: Incomplete. Need additional imaging evaluation. A letter regarding these results will be sent to the patient by the facility within 30 days. Approximately 10% of breast cancers are not detected by mammography. A normal mammogram should not delay biopsy of a clinically suspicious abnormality. [id number] Electronically Signed: Rhys Ojeda, at 15:33 EDT , Service support ,
== END ==
PROVIDERS: PCP Family Medicine; Referring Provider Family Medicine; Visit Provider Family Medicine
DX: Z12.31 Encounter for screening mammogram for malignant neoplasm of breast (principal)
CPT/HCPCS: 77063; 77067

== ENCOUNTER → 2019-12-09 14:58 | Outpatient (CLI) | payer OTHER, SELFPAY ==
[2019-09-06 06:49] VITALS: BMI 33.4
--- NOTE | 2019-12-09 15:00 | US_ITS ---
STUDY: ULTRASOUND BREAST - RIGHT REASON FOR EXAM: Female, 54 years old. Abnormal screening mammogram. TECHNIQUE: Axial and longitudinal images of the RIGHT breast were performed with a high resolution ultrasound transducer. # OF IMAGES: 68 COMPARISON: Comparison is made with prior mammogram dated 12/02/2019. FINDINGS: RIGHT Breast: 1.3 cm x 1.1 cm x 0.9 cm irregular spiculated nodule at the 12 o''clock position of the breast at 4 cm from the nipple. Posterior acoustical shadowing is seen. Biopsy is recommended. IMPRESSION: 1.3 cm x 1.1 cm x 0.9 cm irregular spiculated nodule with posterior acoustical shadowing at the 12 o''clock position of the breast at 4 cm from the nipple. Biopsy is recommended. ASSESSMENT CATEGORY: BIRADS Category 5: Highly Suggestive of Malignancy - Appropriate Action Should Be Taken. A letter regarding these results will be sent to the patient by the facility within 30 days. Electronically Signed: Rhys Lynette, at 15:08 EDT , Service support , STUDY: ULTRASOUND BREAST - LEFT REASON FOR EXAM: Female, 54 years old. Abnormal screening mammogram. TECHNIQUE: Axial and longitudinal images of the LEFT breast were performed with a high resolution ultrasound transducer. # OF IMAGES: 68 COMPARISON: Comparison is made with prior mammogram dated 12/02/2019. FINDINGS: LEFT Breast: There is a 2.7 cm x 2.6 cm x 1.4 cm cyst at the 2 o''clock position of the breast at 8 cm from the nipple. US/Breast Complete Unilateral IMPRESSION: 2.7 cm x 2.69 x 1.4 cm cyst at the 2 o''clock position breast at the sinus from the nipple. ASSESSMENT CATEGORY: BIRADS Category 2: Benign. A letter regarding these results will be sent to the patient by the facility within 30 days. Electronically Signed: Rhys Ojeda, at 15:09 EDT , Service support ,
[2019-12-09 17:12] LABS: Absolute Lymphocyte Count 2.51 X10^3/uL (0.83-4.51); Absolute Neutrophil Count 5.1 X10^3/uL (2.0-7.7); Basophil# 0.05 X10^3/uL; Basophil% 0.6 % (0-1); Eosinophil# 0.23 X10^3/uL; Eosinophils% 2.7 % (0-5); Hematocrit 43.2 % (37-47); Hemoglobin 14.2 g/dL (12.0-15.0); Lymphocyte # 2.51 X10^3/ul (4.0); Lymphocyte % 29.3 % (19-41); Mean Corp Hgb Conc 32.9 g/dL (32-36); Mean Corpuscular Hgb 31.3 pg (27.0-32.0); Mean Corpuscular Volume 95.2 fL (81-99); Monocyte# 0.64 X10^3/uL; Monocyte% 7.5 % (0-10); NRBC Flagged by Analyzer 0 % (0-5); Neutrophil # 5.11 X10^3/uL (2.7-7.7); Neutrophil % 59.7 % (47-70); Platelet Count 238 K/mm3 (150-450); RBC Distribution Width CV 14.1 % (11.6-14.6); RBC Distribution Width SD 48.5 fl (35.1-43.9); Red Blood Count 4.54 M/mm3 (4.2-5.4); White Blood Count 8.6 K/mm3 (4.4-11.0)
[2019-12-09 18:17] LABS: AST(SGOT) 23 U/L (15-37); Alanine Aminotransfer ALT/SGPT 44 U/L (13-56); Albumin, Serum 3.7 g/dL (3.2-5.0); Alkaline Phosphatase 91 U/L (45-117); Anion Gap 7 (5-15); BUN 13 mg/dL (7-18); Calcium,Total 9.4 mg/dL (8.5-10.1); Chloride 110 mmol/L (98-107); EST Glomerular Filtration Rate 61 mL/min (>60); Est Glom Filt Rate - Afr Amer 74 mL/min (>60); Globulin 3.7 g/dL (2.2-4.2); Glucose 87 mg/dL (74-106); Potassium 3.9 mmol/L (3.5-5.1); Protein, Total 7.4 g/dL (6.4-8.2); Sodium Level 141 mmol/L (136-145)
== END ==
PROVIDERS: PCP Family Medicine; Referring Provider Family Medicine; Visit Provider Family Medicine
DX: N63.10 Unspecified lump in the right breast, unspecified quadrant (principal); N60.02 Solitary cyst of left breast; M06.4 Inflammatory polyarthropathy; L98.2 Febrile neutrophilic dermatosis [Sweet]; K76.0 Fatty (change of) liver, not elsewhere classified; J45.909 Unspecified asthma, uncomplicated; R51.9 Headache, unspecified; Z79.899 Other long term (current) drug therapy
CPT/HCPCS: 36415; 76641; 76642; 80053; 85025

== ENCOUNTER → 2019-12-14 | Outpatient (CLI) | payer OTHER, SELFPAY ==
--- NOTE | 2019-12-14 | IMM_PTH ---
PATIENT: PANCHO SMITH LOC: [facility] U#:[id number] AGE/SX: 54/F ROOM: RE12/14/[address]: Dr. Jeffrey Patton MD : 1965 BED: DIS: 12/14/2019 SPEC #: [id number] RECD: 12/15/19 11:34 STATUS: PRAMOD REQ #: [id number] LORELEI: 12/14/19 00:[address]: Jeffrey Patton DEPT: IMMUNOHISTOCHEMISTRY RECD BY: Marline Helms ENTERED: 12/15/19 11:35 SP TYPE: IMMUNO OTHR DR: Dr. Chastity Huff DO Tissues: Right breast, NOS Procedures: CALPONIN-1 (add) CK5-6 (add) CK8 (add) E-CAD (add) HER2 DEMETRIUS (add) KI-67 (add) P53 (add) ND (add) P40 (add) ER (initial) PHYSIC[facility] INSTIT[facility] [address] [address] SPECIMEN INFORMATION: Tissue Source: Right breast Clinical Info: Right breast mass Specimen Number: [id number] CPT code: 88791, 95519 x6, 73114 x3 METHODOLOGY: Deparaffinized sections of prefer/formalin-fixed tissue or PAP/DQ stained slides are incubated with monoclonal/polyclonal antibodies/oligonucleotide probes. Localization is made via biotin free immunoperoxidase method. Appropriate controls are performed and reacted as expected. Results on target cell population are indicated in the following table: RESULTS: ANTIBODY / CLONE RESULT E-Cad (ECH-6) positive CK8 (59escyH63) positive Calponin-1 (YH858B) negative * CK5-6 (D5 & 1684) negative * P40 (BC28) negative * P53 (DO-7) positive, a few cells Ki-67 (30-9) positive, low *?Positive in the area of ductal carcinoma in situ. MORPHOMETRIC ANALYSIS ER (clone 6F11) >95%, strong intensity ND (clone 16/1E2) >95%, strong intensity Her-2Neu (clone CB11) 1+ The prognostic test for HER2 is performed on formalin-fixed paraffin embedded tissue. A 3+ (positive) staining pattern is defined as intense, homogeneous, complete, circumferential membranous staining in >10% of contiguous tumor cells. A similar weak (2+) staining pattern is interpreted as equivocal. JAE follow-up testing is recommended for all equivocal cases. Positivity/negativity for ER/ND is reported if > or < 1% of the tumor cells are immuno- reactive, respectively. The ASCO/CAP criteria is used for scoring. Reference: Journal of Clinical Oncology, 2013; 31:3479-6840 & 2010; 16:8493-6393. Duration of fixation: 9 Hrs; Sample Adequate: Yes. These assays have not been validated on decalcified tissues. Results should be interpreted with caution given the likelihood of false negativity on decalcified specimens. These tests were developed and their performance characteristics determined by [facility]. They may not have been cleared or approved by the U.S. Food and Drug Administration. The FDA has determined that such clearance or approval is not necessary. The above immunohistochemical/dualISH markers are ordered and reviewed by the Pathologist. INTERPRETATION: Right breast, biopsy: Invasive ductal carcinoma. Ductal carcinoma in situ. Positive for estrogen receptors (favorable prognostic indicator). Positive for progesterone receptors (favorable prognostic indicator). Negative for overexpression of NYA5smg. SJ:neema 12/16/19
[2019-12-14 10:29] VITALS: BMI 32.3
--- NOTE | 2019-12-14 10:40 | BRBX_PTH ---
PATIENT: PANCHO SMITH LOC: [facility] U#:[id number] AGE/SX: 54/F ROOM: RE12/14/[address]: Dr. Jeffrey Patton MD : 1965 BED: DIS: 12/14/2019 SPEC #: [id number] RECD: 12/14/19 11:09 STATUS: PRAMOD SONU #: [id number] LORELEI: 12/14/19 10:[address]: Jeffrey Patton DEPT: SURGICAL PATHOLOGY RECD BY: Jaci Day ENTERED: 12/14/19 12:24 SP TYPE: BREAST BX OTHR DR: Dr. Chastity Huff, DO Tissues: Right breast, NOS Procedures: Surgery Specimen Level IV HEADER OPERATION: Right breast biopsy PRE-OP DIAGNOSIS: Right breast mass TISSUE SUBMITTED: Right breast tissue MICROSCOPIC DIAGNOSIS Right breast tissue, core biopsy: Invasive ductal carcinoma, nuclear grade 2 (1 cm in greatest length). Ductal carcinoma in situ. See comment. ALKA:neema 12/15/19 COMMENT Immunohistochemistry ([id number]) supports the above diagnosis. Ductal carcinoma in situ shows intermediate nuclear grade, cribriform pattern and comedo necrosis and it is comprised about 5 to 10% of the total tumor voulume. ER/NE/Ynl5wga studies are being performed on sections of tumor and the results from this study will be reported separately ([id number]). Case has been reviewed in consultation with Dr. Chen who concurs with the above diagnosis. IDC:AM MICROSCOPIC DESCRIPTION Slides are reviewed. GROSS DESCRIPTION Received in fixative is one container labeled with the patient name and designated right breast. The specimen consists of multiple elongated fragments of beck-yellow fibroadipose tissue that in aggregate measure 2 x 1 x 0.1 cm. The entire specimen is submitted in one cassette. / ALKA:neema 12/14/19 TC:0 CPT: 05135
== END | disposition home or self-care (01) ==
LOC: LABSPEC 11:23
PROVIDERS: PCP Family Medicine; Referring Provider Surgery; Visit Provider Surgery
DX: D05.11 Intraductal carcinoma in situ of right breast (principal)
CPT/HCPCS: 88305; 88341; 88342

== ENCOUNTER 2019-12-28 10:19 | Day surgery (SDC) | payer OTHER, SELFPAY ==
[2019-12-14 10:29] VITALS: BMI 32.3
[2019-12-28] VITALS (8 sets, daily range): BP systolic 125–134; BP diastolic 56–81; PULSE 65–77; RESP 16–18; TEMP 36.1–36.6; O2SAT 92–98; BMI 32.6
--- NOTE | 2019-12-28 | AXNB_PTH ---
PATIENT: PANCHO SMITH [place] [facility] [place][id number] AGE/SX: 54/F ROOM: RE12/28/[address]: Dr. Jeffrey Patton MD : 1965 BED: DIS: 12/28/2019 SPEC #: [id number] RECD: 12/28/19 14:56 STATUS: PRAMOD REAaron #: [id number] LORELEI: 12/28/19 00:[address]: Jeffrey Patton DEPT: SURGICAL PATHOLOGY RECD BY: Marline Helms ENTERED: 12/28/19 15:24 SP TYPE: AX NODE BX OTHR DR: Dr. Chastity Huff DO Tissues: A - Axillary lymph node, NOS B - Axillary lymph node, NOS C - Right breast, NOS D - Right breast, NOS Procedures: Frozen Section (charge) Surgery Specimen Level IV Surgery Specimen Level V HEADER OPERATION: Breast, ultrasound-guided wire localization lumpectomy PRE-OP DIAGNOSIS: Right breast carcinoma TISSUE SUBMITTED: A - Right sentinel lymph node, FS, B - Additional right sentinel lymph node, FS, C - Right breast cancer, D - Additional right breast tissue, E - Right breast new posterior margin, stitch medina new posterior margin FROZEN SECTION DIAGNOSIS A. Right axillary sentinel lymph node, biopsy: One out of one lymph node negative for carcinoma. B. Additional right axillary sentinel lymph node, biopsy: Mature adipose tissue. No lymph node identified. AM:neema 12/28/19 MICROSCOPIC DIAGNOSIS A. Right axillary sentinel lymph node, biopsy: One out of one lymph node negative for carcinoma. B. Additional right axillary sentinel lymph node tissue, biopsy: Mature adipose tissue. No lymph node identified. C. Right breast, lumpectomy: Invasive ductal carcinoma. Ductal carcinoma in situ. Synoptic report below. D. Right breast, lumpectomy, additional tissue: Invasive ductal carcinoma. Ductal carcinoma in situ. Synoptic report below. E. Right breast, new posterior margin, biopsy: Fibrocystic change. Focal involutional change with associated microcalcifications. Focal intraductal hyperplasia without atypia. No evidence of malignancy. AM:neema 01/03/20 COMMENT INVASIVE BREAST CANCER SUMMARY (Specimen C & D) Procedure - excision with wire guidance Specimen type - partial breast Size - 7 x 6.5 x 3 cm and 4 x 4 x 2 cm (two fragments) Laterality - right breast Largest invasive tumor size - 1.8 x 1.4 x 1 cm (largest tumor) Other tumors range in size from 1 to 15 millimeters (greater than 20 foci). Focality - multiple foci of invasive tumor. Histologic type - invasive ductal carcinoma Histologic Grade (Sridhar grade): Glandular/tubular differentiation - score 3 Nuclear pleomorphism - score 3 Mitotic count - score 2 Overall grade - 3 (score of 8) Lymphvascular invasion - focally present Ductal carcinoma in situ (DCIS): Estimated size (extent) of DCIS - 4 x 3.5millimeters (largest focus) Number of blocks with DCIS - 24 out of 26 blocks Architectural patterns - cribriform and comedo Nuclear grade - grade 3/3 Necrosis - focally present Lobular carcinoma in situ (LCIS) - not identified Tumor extension: Skin - not applicable (no skin present) Nipple - not applicable Skeletal muscle - not present Invasive carcinoma margin - focally positive (anterior margin) In situ carcinoma: Distance from closest margin - 1.0 millimeters (anterior margin) [place] lymph node: Number of lymph nodes examined - 1 No evidence of macro metastases, micro metastases or isolated tumor cells. See specimens A & B Microcalcifications - present in carcinoma and non-neoplastic tissue. Treatment effect - unknown Additional pathologic findings - intraductal hyperplasia with focal intraductal hyperplasia and fibrocystic change. Changes of previous biopsy. Ancillary studies: Previously performed on same tumor ([id number] / [id number]). ER: >95%, strong intensity SD: >95%, strong intensity Her2 sirisha: negative (1+ by IHC) PATHOLOGIC STAGE: pT1c N0 Mx The above summary is in compliance with [employer] (CAP) Cancer Protocols Checklist and [place] Joint Committee on Cancer (AJCC), Staging Manual, 8th Ed. Case has been reviewed in consultation with Dr. Nguyen who concurs with the above diagnosis. IDC:SJ MICROSCOPIC DESCRIPTION Slides are reviewed. GROSS DESCRIPTION A - Received fresh for frozen section diagnosis labeled with the patient's name is a specimen designated right sentinel lymph node. The specimen consists of a piece of beck soft tissue measuring 3.5 x 2.5 x 1 cm. One lymph node is identified measuring 2.6 cm in greatest dimension. The entire lymph node is submitted in entirety for frozen section diagnosis in two cassettes. / AM: 12/28/19 B - Received fresh for frozen section diagnosis labeled with the patient's name is a specimen designated additional right sentinel lymph node. The specimen consists of a piece of adipose tissue measuring 2.5 x 1.5 x 1 cm. The entire specimen is submitted for frozen section diagnosis in one cassette. / AM: 12/28/19 C - Received fresh for intraoperative consultation labeled with the patient's name is a specimen designated right breast tissue. The specimen consists of a piece of fibroadipose tissue weighing 73.7 gm and measuring 7 x 6.5 x 3 cm. The specimen is oriented as follows: short suture - superior margin, long suture - lateral margin. The specimen is inked as follows: anterior - yellow, posterior - black, superior - blue, inferior - green, medial - red and lateral - orange. The wire was dislodged from the specimen and is in the bag. Serial sections reveal a small scar ? 9 mm in greatest dimension at 5 mm from the posterior margin. No distinct mass is identified. A cyst is also noted measuring 1 cm in greatest dimension. This information is conveyed to the surgeon by Dr. Chen. Sections of the rest of the specimen reveal beck-yellow adipose cut surfaces mixed with beck-white fibrous areas. Sections of the rest of the specimen reveal extensive fibrous cut surfaces. Residential Housekeeper sections are submitted in 15?cassettes as follows: 1 & 2 - perpendicular margin, 3-5 - indurated area, 6 & 7 - cyst, 8-15 - Residential Housekeeper sections from the other areas. Sections will be submitted after additional fixation. / AM: 12/28/19 D - Received fresh for intraoperative consultation labeled with the patient's name is a specimen designated additional right breast tissue. The specimen consists of a piece of fibroadipose tissue weighing 19 gm and measuring 4 x 4 x 2 cm. The specimen is oriented as follows: short suture - superior, long suture - lateral. The specimen is inked as follows: anterior - yellow, posterior - black, superior - blue, inferior - green, medial - red and lateral - orange. Serial sections reveal a beck, indurated mass measuring 1.2 x 0.6 x 0.5 cm. This mass is 0.3 cm away from the closest posterior margin. This information is conveyed to the surgeon intraoperatively. Residential Housekeeper sections are submitted in 11 cassettes as follows: 1 - perpendicular medial, lateral and superior margin, 2-6 - tumor including closest margins, 7-11 - account development representative sections from the other areas adjacent to and away from the tumor. 95% of the specimen is submitted. Sections will be submitted after additional fixation. / AM:neema 12/28/19 E - Received in fixative is one container labeled with the patient's name and designated right breast new posterior margin, stitch medina new posterior margin. The specimen consists of a piece of fibroadipose tissue measuring 4.5 x 2 x 1.5 cm. A stitch is present identifying new posterior margin which is inked black. The old posterior margin is inked blue. The specimen is serially sectioned and reveal beck-yellow adipose cut surfaces mixed with focal fibrous areas. No obvious mass is identified. The entire specimen is submitted from one end to another end in four cassettes. Sections will be submitted after additional fixation. / SJ:neema 12/29/19 TC:0 CPT: 29606 x4, 75864, 86111 x2, 16762 x2 ADDENDUM ADDENDUM ADDENDUM ADDENDUM ADDENDUM ADDENDUM ADDENDUM ADDENDUM 02/20/2020 10:27 ADDENDUM 11/02/2020 09:01 ADDENDUM 02/20/2020 10:27 ADDENDUM 02/20/2020 10:27 ADDENDUM 02/20/2020 10:27 ADDENDUM 02/20/2020 10:27 An order for Oncotype testing was received from Dr. Martin. This necessitated case review, block and slide selection by pathologist at [facility]. Breast Cancer Recurrence Score = 16 Results of the complete Oncotype testing (Ondax report) are viewable in EMR under: Reports - Pathology - Lab Pathology Report, Scanned. ONKOSIMARY [facility] ADVANCED SOLID TUMOR NGS REPORT FROM [facility] RESULT SUMMARY: Abnormal IMMUNOTHERAPY BIOMARKERS: Tumor Mutation [place]: Low (6.3 Mutations / MB) Microsatellite Instability: MSI negative PERTINENT NEGATIVE RESULTS: The following genes are NEGATIVE for clinically relevant mutations. Mutational hotspots and surrounding exonic regions were interrogated for DNA level point mutations and indels (fusions not assayed). AKT1, APC, ARID1A, BRANDYN, BRAF, BRCA1, BRCA2, CDH1, CDKN2A, CTNNB1, EGFR, EPCAM, ERBB2, ERBB4, FBXW7, FGFR2, FGFR3, GNA11, GNAQ, GNAS, HRAS, IDH1, IDH2, KDR, KIT, KRAS, MEN1, MET, MLH1, MSH6, NOTCH1, NRAS, PDGFRA, PIK3CA, PMS2, POLE, PTEN, PTPN11, RB1, RET, SMAD4, SMO, STK11, TERT, TP53, TSC1, VHL Please see complete report in e-chart or EMR
--- NOTE | 2019-12-28 | IMM_PTH ---
PATIENT: PANCHO SMITH LOC: [facility] [place] U#:[id number] AGE/SX: 54/F ROOM: RE12/28/[address]: Dr. Jeffrey Patton MD : 1965 BED: DIS: 12/28/2019 SPEC #: [id number] RECD: 01/02/20 13:46 STATUS: PRAMOD REQ #: [id number] LORELEI: 12/28/19 00:[address]: Jeffrey Patton DEPT: IMMUNOHISTOCHEMISTRY RECD BY: Marline Helms ENTERED: 01/02/20 13:53 SP TYPE: IMMUNO OTHR DR: Dr. Chastity Huff, DO Tissues: A - Axillary lymph node, NOS C - Right breast, NOS Procedures: CD31 (initial) Synapto (add) CD34 (add) CD56 (add) CHROMO (add) CK8 (add) KI-67 (add) FACTOR VIII (add) Pankeratin (initial) Pankeratin (add) NSE (add) PHYSICIAN [facility] INSTIT[facility] [address] [address] SPECIMEN INFORMATION: Tissue Source: A - Right axillary sentinel lymph node, biopsy, C - Right breast cancer Clinical Info: Right breast carcinoma Specimen Number: [id number] A1, A2, C2, C15 CPT code: 65398 x2, 51993 x11 METHODOLOGY: Deparaffinized sections of prefer/formalin-fixed tissue or PAP/DQ stained slides are incubated with monoclonal/polyclonal antibodies/oligonucleotide probes. Localization is made via biotin free immunoperoxidase method. Appropriate controls are performed and reacted as expected. Results on target cell population are indicated in the following table: RESULTS: ANTIBODY / CLONE RESULT Block A1 AE1-3 (AE1/AE3/PCK26) negative CK8 (62wqqeM79) negative Block A2 AE1-3 (AE1/AE3/PCK26) negative CK8 (91nauhI23) negative Block C2 CK8 (73vwesB35) positive CD56 (123C3.D5) negative Chromo (LK2H10) negative Synapto (polyclonal) negative NSE Neuron Specific Enolase negative Ki-67 (30-9) positive, low Block C15 CD31 (FREDDIE/70A) positive Factor VIII (R Ag) positive CD34 (QBEnd-10) positive These tests were developed and their performance characteristics determined by [facility]. They may not have been cleared or approved by the U.S. Food and Drug Administration. The FDA has determined that such clearance or approval is not necessary. The above immunohistochemical/dualISH markers are ordered and reviewed by the Pathologist. INTERPRETATION: A. Right axillary sentinel lymph node, biopsy: One out of one lymph node negative for carcinoma. C. Right breast cancer: Focal endolymphatic invasion by carcinoma. AM:neema 01/03/20 Case has been reviewed in consultation with Dr. Nguyen who concurs with the above diagnosis. IDC:SJ
--- NOTE | 2019-12-28 05:46 | HP_ITS ---
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 Is patient in pain?: No Allergies No Known Allergies Allergy (Verified 12/21/19 09:06) Medications folic acid 1 mg tablet 1 mg PO QDAY 03/31/17 [History Confirmed 12/21/19] levothyroxine 88 mcg capsule 88 mcg PO QDAY cap 03/31/17 [History Confirmed 12/21/19] traZODone [Desyrel] 50 mg PO QHS 05/07/17 [History Confirmed 12/21/19] albuterol sulfate 2.5 mg INHALATION Q4H PRN #180 ml 09/06/19 [Rx Confirmed 12/21/19] albuterol sulfate 90 mcg/actuation aerosol inhaler 1 - 2 puff INHALATION Q4H PRN #3 device 09/06/19 [Rx Confirmed 12/21/19] Fluticasone Propion/Salmeterol [Wixela 250-50 Inhub] 1 ea IH BID 12/20/19 [History Confirmed 12/21/19] Methotrexate 10 mg PO SA 12/20/19 [History Confirmed 12/21/19] Todd-3 Fatty Acids/Fish Oil [Fish Oil 1,000 mg Capsule] 3 ea PO DAILY 12/20/19 [History Confirmed 12/21/19] Prednisone 60 mg PO QDAY PRN 12/20/19 [History Confirmed 12/21/19] PFSH Medical History (Updated 12/21/19 @ 09:05 by Jessa Izaguirre) Sweet syndrome (Chronic) Moderate persistent asthma (Chronic) Asthma (Chronic) Head mass (Chronic) Asthma (Acute) Breast cancer, right (Acute) Breast cyst (Acute) High cholesterol (Acute) Hypothyroidism (Acute) Pneumonia (Acute) Sweets syndrome (Acute) Surgical History (Updated 12/21/19 @ 09:05 by Jessa Izaguirre) History of bunionectomy of left great toe (Acute ~1981) History of right breast biopsy (Acute ~12/14/19) History of tonsillectomy and adenoidectomy (Acute ~1968) Family History Mother , AGE 36 Acute myocarditis Brother , AGE 34 AIDS Brother , AGE 44 Primary malignant neoplasm of anus Social History (Updated 12/22/19 @ 08:[address] Jeffrey Patton MD) Smoking Status: Never smoker second hand exposure: No alcohol intake: never substance use type: does not use caffeine: Yes what type of physical activity do you participate in: none HPI HPI HPI: PANCHO SMITH, is a 54 F who presents to the office today for HPI HPI Surgical H&P: Yes HPI: PANCHO SMITH is a 54 F who presents to the office today for Right breast cancer. The patient had biopsy of the right breast mass which came back as invasive ductal carcinoma with ER/TX positive immunohistochemistry. ROS General General: No weight change, appetite, fatigue, colon cancer, breast cancer or weakness HEENT HEENT: No difficulty swallowing, eye injury, eye surgery, swollen glands or hoarseness Endo Endocrine: No thyroid disease, diabetes mellitus, thyroid cancer, Hair loss, heat intolerance or cold intolerance Skin Skin: No rash or changing moles Breast Breast: Yes right breast lump, abnormal mammogram and abnormal US; no left breast lump, breast pain or breast enlargement Musc Musculoskeletal: No back problems, arthritis, rheumatoid arthritis, gout or joint pain Cardio Cardiovascular: No murmur, pacemaker, heart disease, atrial fibrillation, high blood pressure, heart attack, heart stent, palpitations, shortness of breat with exertion or chest pain Psych Psychiatric: No depression, anxiety or hearing voices Resp Respiratory: Yes shortness of breath, No sleep apnea, Yes cough, No COPD, Yes asthma, No emphysema, No wheezing Gastro Gastrointestinal: No abdominal pain, No nausea or vomiting, No diarrhea, No constipation, No blood in stool, No acid reflux, No hemorrhoids, No ulcers, No gallbladder problem, No black,tarry stools Leo Hematologic: No blood thinners, No blood disorders, No bleeding, No anemia, No blood clots Neuro Neurologic: No system reviewed and no additional complaints, except as docu, No as per HPI, No abnormal walking, No abnormal hearing, No abnormal movements, No abnormal speech, No behavioral changes, No burning sensations, No confusion, No seizure-like activity, No unsteadiness, No dizziness, No localized weakness, No frequent falls, No headache(s), No lack of coordination, No loss of vision, No memory loss, No numbness, No other visual disturbances, No radiating pain, No restless legs, No sensory deficit, No fainting, No tingling, No tremor(s), No weakness, No other Exam Const General: cooperative Orientation: alert, oriented x3 Chest Breast Palpation: Yes breast mass lrb: Right Resp Effort & Inspection: normal respiratory effort Auscultation: clear to auscultation bilaterally Cardio Rate: regular rate Rhythm: regular rhythm Heart Sounds: no murmurs GI Inspection: non-distended Palpation: soft, nontender Assessment & Plan Problems 1. Malignant neoplasm of upper-outer quadrant of right breast in female, estrogen receptor positive C50.411; Z17.0 Plan The patient has breast cancer of the right breast. I discussed this pathology with her and her family member. I discussed surgical options with her. I discussed mastectomy versus partial mastectomy. I discussed axillary sentinel lymph node biopsy. I also discussed adjuvant radiation and possible chemotherapy with hormonal therapy. The patient understands all of the treatment options. The patient decided on right partial mastectomy with sentinel lymph node biopsy. I discussed blue dye injection as well as radiotracer and axillary lymph node biopsy with possible dissection. The patient understands and all questions were answered. Jeffrey Patton MD Pager: [facility] [address] [place] [address], [address] [place] [address] Office: Coding Level of Care Code Off vis,est,level 3 Diagnoses Malignant neoplasm of upper-outer quadrant of right breast in female, estrogen receptor positive C50.411; Z17.0 ??Breast location: upper outer quadrant of breast ??Estrogen receptor status: positive ??Patient sex: female I have re-examined the patient. There are no clinical changes since date of exam.
--- NOTE | 2019-12-28 10:30 | NM_ITS ---
PROCEDURE: NUCLEAR MEDICINE Injection Kiester Node - RIGHT breast(s). REASON FOR EXAM: Female, 54 years old. Right breast cancer. TECHNIQUE: Kiester node localization using radionuclide methods of the RIGHT breast(s) was performed following subcutaneous administration of 1.1 mCi of of sulfur colloid Tc-99m. FINDINGS: 1.1 mCi of technetium labeled sulfur colloid was injected in 4 equal aliquots subcutaneously in the upper outer quadrant of the right breast. NM/Lymph Node Injection Only IMPRESSION: Injection of 1.1 mCi of technetium labeled sulfur colloid for sentinel node imaging. Electronically Signed: Rhys Ojeda, at 12:16 EDT , Service support ,
[2019-12-28] MEDS: Isosulfan Blue 1% 5 ML Vial (14:30)
[2019-12-28] MEDS: 0.9% Normal Saline (Pres. free 10 ML Vial (14:30)
[2019-12-28] MEDS: Bupiv/Epi 0.25% 30 ML Vial (14:39)
--- NOTE | 2019-12-28 15:31 | BI_ITS ---
SURGICAL BREAST SPECIMEN RADIOGRAPH CLINICAL: Document presence of calcifications in biopsy specimen. FINDINGS: Specimen shows presence of calcifications. Electronically Signed: Rhys Ojeda, at 10:12 EDT , Service support , BI/Breast Biopsy Specimen
--- NOTE | 2019-12-28 16:40 | PCM.OPRPT ---
Problem List (1) Breast cancer, right breast Status: Acute Qualifiers: Breast location: central portion of breast Estrogen receptor status: positive Patient sex: female Qualified Code(s): C50.111 - Malignant neoplasm of central portion of right female breast; Z17.0 - Estrogen receptor positive status [ER+] Report of Operation Date of Procedure: 12/28/19 Pre-Operative Diagnosis: Right breast cancer Post-Operative Diagnosis: Same Surgery/Procedure Performed:: 1. Ultrasound-guided wire localization of right breast mass. 2. Right partial mastectomy. 3. Right axillary sentinel lymph node biopsy Specimen's removed: 1. Axillary lymph node. 2. Right breast specimen. 3. Additional right breast mass. 4. New posterior margin Description of Procedure: Patient was brought back to the operating room and general anesthesia was induced. The breast was prepped and 5 mL of Lymphazurin was injected in the retroareolar space as well as a 5 mL saline tracer. Next using ultrasound guidance a Kopan's needle was placed into the breast mass. The axilla and right breast was prepped in the usual sterile fashion. An axillary incision was marked and injected with local anesthetic. A scalpel was used to make the axillary dissection and electrocautery was used to deepen this to the axillary fascia which was then divided. The axilla was inspected and a small lymph node was identified which was partially blue but was not radioactive. The axilla was copiously dissected and no additional suspicious or blue lymph nodes were identified. There was no radioactive material in the axilla. The axilla was packed with a wet gauze and the breast was addressed. An area superior to the nipple was injected with local anesthetic and a curvilinear incision was made. This was deepened using electrocautery and the wire was brought into the incision. A large area of the right breast was dissected free using electrocautery but the wire was dislodged during dissection. This mass was sent for pathology and mammogram but the mammogram did not reveal clip and the pathology did not reveal mass. The remaining right breast was inspected and there was a firm nodule posterior and inferior to the area that was removed. This area was removed marked and sent for mammogram. Mammogram did not show clip but pathology did show that the mass was included in the specimen with a close posterior margin. Next the new posterior margin was taken using electrocautery and the new margin was marked with a suture. The cavity was irrigated and hemostasis was obtained using letter cautery. The skin was closed with interrupted 3-0 Vicryl sutures and a 4-0 Monocryl running suture. The axillary fascia was then closed with interrupted 3-0 Vicryl sutures and a running 4-0 Monocryl as well. Glue was applied to both incisions. Patient was then awoken and taken to PACU in stable condition. - Admit VTE Documentation VTE Mechan Device Prophylaxis: SCD's
--- NOTE | 2019-12-28 16:45 | PCM.DC.BS ---
Discharge Diet: No Restrictions Discharge Activity: May Not Drive - for 2-3 days or while taking narcotic pain meds. May shower in (days): 1 Lifting Restrictions: 10 pounds for 1 week. Call your doctor if your incision/area has: Continuous Slow Oozing, Sudden Increased Bleeding, Increased Pain/ Swelling, Increased Redness, Foul Smelling Discharge, Swelling at the incision site Call your doctor if you observe: Fever of 101 or Higher Suture Line Care: Avoid Pulling/Pushing, Avoid Pinching/Bending Allergies/Adverse Reactions: Allergies No Known Allergies Allergy (Verified 12/28/19 10:51) Medications to take at Discharge folic acid 1 mg tablet 1 mg PO QDAY 03/31/17 levothyroxine 88 mcg capsule 88 mcg PO QDAY cap 03/31/17 traZODone [Desyrel] 50 mg PO QHS 05/07/17 albuterol sulfate 2.5 mg INHALATION Q4H PRN #180 ml 09/06/19 albuterol sulfate 90 mcg/actuation aerosol inhaler 1 - 2 puff INHALATION Q4H PRN #3 device 09/06/19 Fluticasone Propion/Salmeterol [[place]ixela 250-50 Inhub] 1 ea IH BID 12/20/19 Methotrexate 10 mg PO SA 12/20/19 [place]-3 Fatty Acids/Fish Oil [Fish Oil 1,000 mg Capsule] 3 ea PO DAILY 12/20/19 Prednisone 60 mg PO QDAY PRN 12/20/19 Oxycodone HCl/Acetaminophen [Percocet 5-325 mg Tablet] 1 - 2 tab PO Q6H PRN PRN 5 Days #30 tab 12/28/19 The following prescriptions were given: Oxycodone HCl/Acetaminophen [Percocet 5-325 mg Tablet] 1 - 2 tab PO Q6H PRN PRN 5 Days #30 tab PRN Reason: Pain Score 4-10/10 Transmission Status: Sent to [facility] Please Follow Up With: Jeffrey Patton MD When: Please call to schedule 2 week follow up appointment. [phone]
== END 2019-12-28 18:26 | disposition home or self-care (01) ==
LOC: SDC 10:19 → AC 10:20
PROVIDERS: Anesthesiology; PCP Family Medicine; Referring Provider Surgery; Visit Provider Surgery
PROC: 0HBV0ZZ Excision of Bilateral Breast, Open Approach (ICD-10-PCS; CPT 19302; principal; 2019-12-28 12:45)
DX: C50.111 Malignant neoplasm of central portion of right female breast (principal); Z17.0 Estrogen receptor positive status [ER+]; J45.40 Moderate persistent asthma, uncomplicated; E78.00 Pure hypercholesterolemia, unspecified; E03.9 Hypothyroidism, unspecified; L98.2 Febrile neutrophilic dermatosis [Sweet]; Z79.51 Long term (current) use of inhaled steroids; Z20.828 Contact with and (suspected) exposure to other viral communicable diseases
CPT/HCPCS: 00400; 19301; 38525; 38792; 76098; 87635; 88305; 88307; 88331; 88341; 88342; A9541; C9803; J7120; J2405; J3490; Q9968; U0003

== ENCOUNTER → 2020-03-09 13:07 | Outpatient (CLI) | payer OTHER, SELFPAY ==
[2020-02-21 10:55] VITALS: BMI 31.7
[2020-03-08 09:09] VITALS: BMI 31.4
[2020-03-09 15:45] LABS: Absolute Lymphocyte Count 2.42 X10^3/uL (0.83-4.51); Absolute Neutrophil Count 4.6 X10^3/uL (2.0-7.7); Basophil# 0.08 X10^3/uL; Eosinophil# 0.28 X10^3/uL; Eosinophils% 3.6 % (0-5); Hematocrit 44.1 % (37-47); Hemoglobin 14.2 g/dL (12.0-15.0); Lymphocyte # 2.42 X10^3/ul (4.0); Lymphocyte % 30.8 % (19-41); Mean Corp Hgb Conc 32.2 g/dL (32-36); Mean Corpuscular Hgb 30.5 pg (27.0-32.0); Mean Corpuscular Volume 94.8 fL (81-99); Mean Platelet Vol. 13.5 fl (6.2-12.0); Monocyte# 0.51 X10^3/uL; Monocyte% 6.5 % (0-10); NRBC Flagged by Analyzer 0 % (0-5); Neutrophil # 4.55 X10^3/uL (2.7-7.7); Neutrophil % 57.8 % (47-70); Platelet Count 189 K/mm3 (150-450); RBC Distribution Width CV 12.9 % (11.6-14.6); RBC Distribution Width SD 45.1 fl (35.1-43.9); Red Blood Count 4.65 M/mm3 (4.2-5.4); White Blood Count 7.9 K/mm3 (4.4-11.0)
[2020-03-09 15:59] LABS: AST(SGOT) 23 U/L (15-37); Alanine Aminotransfer ALT/SGPT 44 U/L (13-56); Albumin, Serum 3.7 g/dL (3.2-5.0); Alkaline Phosphatase 99 U/L (45-117); Anion Gap 6 (5-15); BUN 9 mg/dL (7-18); BUN/Creat Ratio 9.6 RATIO (10-20); Calcium,Total 9.2 mg/dL (8.5-10.1); Chloride 110 mmol/L (98-107); Creatinine, Serum 0.94 mg/dL (0.55-1.02); EST Glomerular Filtration Rate 66 mL/min (>60); Est Glom Filt Rate - Afr Amer 80 mL/min (>60); Globulin 3.6 g/dL (2.2-4.2); Glucose 84 mg/dL (74-106); Potassium 3.5 mmol/L (3.5-5.1); Protein, Total 7.3 g/dL (6.4-8.2); Sodium Level 140 mmol/L (136-145)
== END ==
PROVIDERS: PCP Family Medicine; Referring Provider Internal Medicine Rheumatology; Visit Provider Internal Medicine Rheumatology
DX: M06.4 Inflammatory polyarthropathy (principal); L98.2 Febrile neutrophilic dermatosis [Sweet]; K76.0 Fatty (change of) liver, not elsewhere classified; J45.909 Unspecified asthma, uncomplicated; R51.9 Headache, unspecified; Z79.899 Other long term (current) drug therapy
CPT/HCPCS: 36415; 80053; 85025

== ENCOUNTER → 2020-03-19 11:13 | Outpatient (CLI) | payer OTHER, SELFPAY ==
[2020-02-21 10:55] VITALS: BMI 31.7
[2020-03-08 09:09] VITALS: BMI 31.4
--- NOTE | 2020-03-19 11:20 | CT_ITS ---
STUDY: CT CHEST WITH CONTRAST REASON FOR EXAM: Female, 54 years old. CHRONIC COUGH WITH HOARSENESS SINCE AUGUST. DX WITH BREAST CA IN NOVEMBER. HAD A RT LUMPECTOMY RADIATION DOSAGE (If Supplied By Facility): CTDIvol = ( 13.59 ) mGy, DLP = ( 513.12 ) mGycm TECHNIQUE: Transaxial imaging was performed following intravenous administration of IV 100mL Isovue-370. Multiplanar coronal and sagittal images were reformatted. Individualized dose optimization techniques were used for this CT. COMPARISON: None. FINDINGS: Bilateral axillary lymph nodes. The largest right axillary lymph node measures 1.1 cm. There are innumerable nodules seen in both lungs with the increased interstitial pattern. Lymphangitic spread should be ruled out. Small bilateral pleural effusions slightly worse on the left side. Normal heart and pericardium. Normal mediastinum. Normal hilar regions. Normal enhanced pulmonary arteries. Normal aorta arch and descending thoracic aorta. There are multi-level degenerative changes of the thoracic spine. Fatty infiltration of the liver. CT/Chest WITH Contrast IMPRESSION: Multiple bilateral pulmonary nodules with increased interstitial pattern. Lymphangitic spread should be ruled out. Bilateral axillary adenopathy more prominent on the right side. Electronically Signed: Rhys Ojeda MD at 13:24 EST , Service support ,
== END ==
PROVIDERS: PCP Family Medicine; Referring Provider Student in an Organized Health Care Education/Training Program; Visit Provider Student in an Organized Health Care Education/Training Program
DX: R91.8 Other nonspecific abnormal finding of lung field (principal); C50.911 Malignant neoplasm of unspecified site of right female breast
CPT/HCPCS: 71260; Q9967

== ENCOUNTER → 2020-03-27 14:30 | Outpatient (CLI) | payer OTHER, SELFPAY ==
[2020-02-21 10:55] VITALS: BMI 31.7
[2020-03-08 09:09] VITALS: BMI 31.4
--- NOTE | 2020-03-27 14:00 | PET_ITS ---
EXAMINATION: FDG PET/CT INDICATIONS: A 54-year-old female with history of carcinoma of the breast presenting for restaging examination and evaluation of apparent pulmonary nodularity. COMPARISON EXAMINATION: None available INDEX LESION SIZE SUV INTERPRETATION Bilateral hemithorax pulmonary parenchyma (n=disseminated) 15.8-mm (largest) (frame 162) 2.5 (max) Fulfills quantitative criteria for viable neoplasm Heterogeneous right breast, anterior chest wall 35.2-mm (frame 180) 2.3 Most consistent with site of histologically confirmed primary breast malignancy TECHNIQUE: Following the intravenous administration of 11.52 mCi of F-18 deoxyglucose via the left antecubital fossa, multiplanar image acquisitions of the neck, chest, abdomen and pelvis to level of mid thigh, obtained at one hour post radiopharmaceutical administration contemporaneously interpreted with the current CT of the neck, chest, abdomen and pelvis to level of mid thigh, dated 03/27/20 via coregistration reveal: SERUM GLUCOSE LEVEL: 70 mg/dl. HEIGHT: 65 inches. WEIGHT: 182 lbs. FINDINGS: 1. There is heterogeneous multifocal increased FDG concentration defined in the right and left hemithorax pulmonary parenchyma, too many to individually articulate, corresponding to parenchymal nodularity defined on CT of the chest dated 03/27/20, rendering a calculated maximal standard uptake value of 2.5. The maximal axial diameter of the largest parenchymal density on review of CT of the chest dated 03/27/20 is 15.8-mm (transverse). 2. Enhanced FDG distribution is defined in the right breast superficially generating a calculated maximal standard uptake value of 2.3. The maximal axial diameter of the corresponding metabolic, morphologic abnormality on review of CT of the chest dated 03/27/20 is 35.2-mm which appears to correspond to seroma formation-postsurgical change, thickening of the cutaneous tissues. 3. Normal physiologic distribution of the radiopharmaceutical is apparent in the hepatic (2.5) and splenic parenchyma, both renal units, bladder and visualized intestinal tract. Diffuse radiopharmaceutical concentration is noted in all four quadrants of the abdomen and pelvis. The visualized portion of the cerebral cortex demonstrate symmetric and preserved glucose metabolism. There is homogenous enhanced glucose concentration evidenced in the visualized appendicular and axial skeletal structures. Pertinent CT findings are as follows: CHEST: Innumerable parenchymal densities are defined in the bilateral hemithorax with varying degrees of increased glucose metabolism previously described. Right and left hemithorax pleural effusions are ametabolic. Bilateral axillary and scattered mediastinal soft tissue reveals no evidence of increased tracer uptake. ABDOMEN AND PELVIS: Right and left inguinal soft tissue densities with fatty hilus are ametabolic. Apparent cyst formation is noted in the region of the right adnexa without evidence of increased tracer uptake. SKELETAL: Degenerative changes are noted in the cervical, thoracic and lumbar spine without evidence of increased radiopharmaceutical concentration. PET/PET/CT Tumor Base -Thigh Init IMPRESSION: 1. The multifocal increase in radiopharmaceutical concentration observed in the right and left hemithorax pulmonary parenchyma fulfill quantitative criteria for viable neoplasm. Histopathologic analysis is recommended. 2. Enhanced tracer uptake observed in the right anterior chest wall-breast is most consistent with the site of histologically confirmed primary breast malignancy, postsurgical changes. (Ender anderson al, Journal of Nuclear Medicine 46:34P, 2005). 3. Homogenous increased radiopharmaceutical concentration manifest throughout the visualized appendicular-axial skeletal structures, in the absence of chemotherapeutic intervention, is consistent with the pattern associated with hyperplasia of the hematopoietic marrow. (Bert, AJR 180:669, 2003). Electronic Signature Calvin Haji D.O. Accurate Quantification of SUVs for this report are calculated using the exclusive Prifloatan? Technology.??Exclusive U.S. Patent Accuquan? Technology (U.S. Patent No. [id number] [id number]). Electronically Signed: Calvin Haji DO at 9:37 EST Tel , Service support ,
== END ==
PROVIDERS: PCP Family Medicine; Referring Provider Student in an Organized Health Care Education/Training Program; Visit Provider Student in an Organized Health Care Education/Training Program
DX: C50.811 Malignant neoplasm of overlapping sites of right female breast (principal)
CPT/HCPCS: 78815; A9552

== ENCOUNTER → 2020-04-04 08:56 | Outpatient (CLI) | payer OTHER, SELFPAY ==
[2020-02-21 10:55] VITALS: BMI 31.7
[2020-03-08 09:09] VITALS: BMI 31.4
[2020-04-04] VITALS (11 sets, daily range): BP systolic 123–147; BP diastolic 62–108; PULSE 78–113; RESP 18–29; TEMP 36.9; O2SAT 91–99; BMI 30.4
--- NOTE | 2020-04-04 | IMM_PTH ---
PATIENT: PANCHO SMITH LOC: CT U#:[id number] AGE/SX: 59/F ROOM: RE04/04/[address]: Dr. Eliecer Lopez DO : 1965 BED: DIS: SPEC #: [id number] RECD: 04/05/20 11:20 STATUS: PRAMOD REAaron #: [id number] LORELEI: 04/04/20 00:[address]: Eliecer Lopez DEPT: IMMUNOHISTOCHEMISTRY RECD BY: Marline Helms ENTERED: 04/05/20 11:21 SP TYPE: IMMUNO OTHR DR: Dr. Chastity Huff DO Tissues: Left lung, NOS Procedures: MSH2 (add) MLH-1 (add) MSH6 (add) Anti-PMS2 (add) NAPSIN A (add) CEA (add) CK20 (add) CK7 (add) CK8 (add) HER2 DEMETRIUS (add) MAMM (add) P53 (add) MS (add) TTF1 (add) Vimentin (add) Pankeratin (add) GATA3 (add) ER (initial) PHYSICIAN & INSTITUTION [address] [address] SPECIMEN INFORMATION: Tissue Source: Left lung, CT-guided biopsy Clinical Info: Left lung mass Specimen Number: [id number] CPT code: 35235, 33381 x17 METHODOLOGY: Deparaffinized sections of prefer/formalin-fixed tissue or PAP/DQ stained slides are incubated with monoclonal/polyclonal antibodies/oligonucleotide probes. Localization is made via biotin free immunoperoxidase method. Appropriate controls are performed and reacted as expected. Results on target cell population are indicated in the following table: RESULTS: ANTIBODY / CLONE RESULT ER (6F11) positive MS (1E2) positive Mammaglobin (31A5) positive, focal GATA3 (L50-823) positive AE1-3 (AE1/AE3/PCK26) positive CK7 (OV-TL12/30) positive CK8 (85vnamU14) positive CK20 (KS20.8) negative Vimentin (V9) negative TTF-1 (8G7G3/1) negative Napsin A (Rabbit Polyclonal) negative CEA (11-7/TF-3HB-1) negative P53 (DO-7) positive, 3% These tests were developed and their performance characteristics determined by [facility]. They may not have been cleared or approved by the U.S. Food and Drug Administration. The FDA has determined that such clearance or approval is not necessary. The above immunohistochemical/dualISH markers are ordered and reviewed by the Pathologist. INTERPRETATION: Left lung mass, CT-guided biopsy: Metastatic adenocarcinoma consistent with breast primary. AM:neema 04/06/2020 ADDENDUM ADDENDUM ADDENDUM ADDENDUM ADDENDUM ADDENDUM ADDENDUM ADDENDUM ADDENDUM ADDENDUM ADDENDUM ADDENDUM ADDENDUM ADDENDUM 04/11/2020 12:47 ADDENDUM 04/11/2020 12:47 ADDENDUM 04/11/2020 12:47 ADDENDUM 04/11/2020 12:47 ADDENDUM 04/11/2020 12:47 ADDENDUM 08/29/2020 10:58 ANTIBODY / CLONE RESULT MLH1 (M1) positive MSH2 (25D12) positive MSH6 (44) positive PMS2 (GTJ7104) positive The above immunohistochemical/dualISH markers are ordered by Dr. Martin and reviewed by the pathologist. Result of Microsatellite Instability Study: Negative (no loss of mismatch protein; no microsatellite instability detected). AM:neema 04/11/2020 ANTIBODY / CLONE RESULT Her-2neu (CB11) negative Her-2neu by IHC is negative in rare tumor cells. AM:neema 08/29/2020
--- NOTE | 2020-04-04 | ASPIGT_PTH ---
PATIENT: PANCHO SMITH LOC: DE U#:[id number] AGE/SX: 59/F ROOM: RE04/04/[address]: Dr. Eliecer Lopez DO : 1965 BED: DIS: SPEC #: [id number] RECD: 04/04/20 11:20 STATUS: PRAMOD REQ #: [id number] LORELEI: 04/04/20 00:[address]: Pastor Martin DEPT: SURGICAL PATHOLOGY RECD BY: Leroy Giron ENTERED: 04/04/20 11:20 SP TYPE: ASP RAD OTHR DR: DO Dr. Eliecer Gonzales DO Tissues: Lung, NOS Procedures: FNA Specimen Adequacy Special Stain Group II Surgery Specimen Level IV Imprint (control) Comments: @ Ordering doctor for SSII edited from to DR.JPRAH Lagunas by ADRYAN at 04/04/20 1257 @ Ordering doctor for SUIV edited from to DR.JPRAH Lagunas by ADRYAN at 04/04/20 1257 @ Ordering doctor for IMPRINT edited from to DR.JPRAH Lagunas by ADRYAN at 04/04/20 1257 @ Ordering doctor for FNASA edited from to DR.JPRAH Lagunas by ADRYAN at 04/04/20 1257 @ Submitting doctor edited from to DR.JPRAH Bebo CORNELIUS at 04/04/20 1257 HEADER OPERATION: CT-guided left lung biopsy PRE-OP DIAGNOSIS: Mass TISSUE SUBMITTED: Left lung 20 gauge core x5 MICROSCOPIC DIAGNOSIS Left lung mass, CT-guided biopsy: Metastatic carcinoma consistent with breast primary. See comment. AM:neema 04/05/2020 COMMENT The specimen is evaluated at the time of biopsy by Dr. Chen. Immediate Evaluation: Pass 1 - Rare atypical epithelioid cells present. Pass 2 - Rare atypical epithelioid cells present. Immunohistochemistry ([id number]) supports the above diagnosis. MICROSCOPIC DESCRIPTION Slides are reviewed. GROSS DESCRIPTION Received in fixative is one container labeled with the patient's name and designated left lung. The specimen consists of multiple minute fragments of light to dark beck soft tissue that in aggregate measure 0.5 x 0.2 x <0.1 cm. The specimen is totally submitted in one cassette. Two touch imprints are prepared at the time of core biopsy. / AM:neema 04/04/20 TC:0 CPT: 35344, 28287 ADDENDUM ADDENDUM ADDENDUM ADDENDUM ADDENDUM ADDENDUM 04/18/2020 09:51 ADDENDUM 05/01/2020 09:11 ADDENDUM 04/18/2020 09:51 ADDENDUM 04/18/2020 09:51 ADDENDUM 04/18/2020 09:51 ADDENDUM 04/18/2020 09:51 PD-L1 (KEYTRUDA) IMMUNOHISTOCHEMICAL ANALYSIS FROM [facility] RESULTS: Tumor proportion score: <1% / Negative Please see complete report in e-chart or EMR ONKOSIGHT NEXT GENERATION SEQUENCING TUMOR MUTATION BURDEN FROM [facility] RESULTS: Tumor mutation burden: Quantity not sufficient ONKOSIGHT NEXT GENERATION SEQUENCING GENE FUSION PANEL FROM [facility] Test not performed. The specimen submitted for testing did not contain sufficient tumor material. Please see complete report in e-chart or EMR
--- NOTE | 2020-04-04 09:08 | CT_ITS ---
PROCEDURE: CT GUIDED CORE NEEDLE BIOPSY OF A left upper lobe LUNG LESION INDICATION: Female, 54 years old. Left anterior lung mass biopsy, breast cancer with right lumpectomy. PHYSICIAN: Dr. AICHA Salazar CONSENT: Written informed consent was obtained having explained the risks, benefits and alternatives in detail with the patient who accepted the risks and agreed to proceed. Laboratory review and clinical assessment was performed. CONSCIOUS SEDATION PROTOCOL: The Drugs used were: 2 mg Versed, IV., and 50 mcg Fentanyl, IV. The sedation time was: 27 minutes. Conscious sedation was started 9:53 AM and terminated at 1020. The conscious sedation protocol was independently monitored. RADIATION DOSAGE (If Supplied By Facility): CTDIvol = ( 21 ) mGy, DLP = ( 549.29 ) mGycm Individualized dose optimization techniques were used for this CT. TECHNIQUE: The patient was placed in the supine position. A noncontrast CT was performed to localize the lesion in the anterior left upper lobe . The skin surface was prepped and draped in a sterile fashion. 1% lidocaine was used for local anesthesia. Using CT guidance, a 20-gauge coaxial biopsy device was advanced to the periphery of the lesion. A total of 5 core specimens were obtained. The specimens were placed in a formalin solution. A post procedure CT demonstrated no adverse sequelae or pneumothorax. The patient tolerated the procedure well without adverse event. A negative biopsy does not exclude malignancy. Further imaging or clinical followup based on patient condition and degree of clinical suspicion for malignancy. Suggest rebiopsy, if biopsy results do not match with clinical scenario. CT/Biopsy/Inj or Needle Placement IMPRESSION: 1. CT directed core needle biopsy of the left upper lobe nodule using CT image guidance with image documentation as described. Pathology results are pending. 2. Conscious Sedation protocol utilized with independent monitoring. Electronically Signed: Rhys Ojeda MD at 10:52 EST , Service support ,
[2020-04-04 09:15] LABS: Absolute Lymphocyte Count 1.71 X10^3/uL (0.83-4.51); Absolute Neutrophil Count 4.2 X10^3/uL (2.0-7.7); Basophil# 0.05 X10^3/uL; Basophil% 0.8 % (0-1); Eosinophil# 0.17 X10^3/uL; Eosinophils% 2.6 % (0-5); Hematocrit 45.6 % (37-47); Hemoglobin 15.2 g/dL (12.0-15.0); Lymphocyte # 1.71 X10^3/ul (4.0); Lymphocyte % 25.7 % (19-41); Mean Corp Hgb Conc 33.3 g/dL (32-36); Mean Corpuscular Volume 92.9 fL (81-99); Monocyte# 0.53 X10^3/uL; NRBC Flagged by Analyzer 0 % (0-5); Neutrophil # 4.17 X10^3/uL (2.7-7.7); Neutrophil % 62.6 % (47-70); Platelet Count 214 K/mm3 (150-450); RBC Distribution Width CV 13.3 % (11.6-14.6); Red Blood Count 4.91 M/mm3 (4.2-5.4); White Blood Count 6.7 K/mm3 (4.4-11.0)
[2020-04-04 09:32] LABS: AST(SGOT) 17 U/L (15-37); Alanine Aminotransfer ALT/SGPT 26 U/L (13-56); Albumin, Serum 3.7 g/dL (3.2-5.0); Alkaline Phosphatase 113 U/L (45-117); Anion Gap 6 (5-15); BUN 12 mg/dL (7-18); BUN/Creat Ratio 11.3 RATIO (10-20); Calcium,Total 9.3 mg/dL (8.5-10.1); Chloride 111 mmol/L (98-107); Creatinine, Serum 1.06 mg/dL (0.55-1.02); EST Glomerular Filtration Rate 57 mL/min (>60); Est Glom Filt Rate - Afr Amer 69 mL/min (>60); Estimated Creatinine Clearance 51.17 ml/min; Globulin 3.6 g/dL (2.2-4.2); Glucose 95 mg/dL (74-106); Potassium 3.8 mmol/L (3.5-5.1); Protein, Total 7.3 g/dL (6.4-8.2); Sodium Level 141 mmol/L (136-145)
[2020-04-04 09:35] LABS: Partial Thromboplast Time 27.9 Seconds (24.1-36.2)
[2020-04-04 09:37] LABS: LDH 179 U/L (84-246)
[2020-04-04] MEDS: Midazolam 2 MG/2 ML Syringe IV (09:53)
[2020-04-04] MEDS: fentaNYL 100 MCG/2 ML Ampul IV (09:53)
--- NOTE | 2020-04-04 10:30 | RAD_ITS ---
STUDY: X-RAY CHEST REASON FOR EXAM: Female, 54 years old. POST LUNG BX TECHNIQUE: AP inspiration and expiration views. COMPARISON: None. FINDINGS: Immediate post left lung biopsy radiographs. No evidence of pneumothorax. RAD/Chest Insp/Exp 2 View IMPRESSION: No evidence of pneumothorax on the immediate post left lung biopsy radiographs. Electronically Signed: Rhys Ojeda MD at 13:58 EST , Service support ,
--- NOTE | 2020-04-04 12:20 | RAD_ITS ---
STUDY: X-RAY CHEST REASON FOR EXAM: Female, 54 years old. 2 hours post lung biopsy TECHNIQUE: AP inspiration and expiration views. COMPARISON: Comparison is made with prior chest radiograph done earlier today. FINDINGS: No evidence of pneumothorax on the delayed post left lung biopsy radiograph.. RAD/Chest Insp/Exp 2 View IMPRESSION: No pneumothorax on the two-hour delayed post left lung biopsy radiograph. Electronically Signed: Rhys Ojeda MD at 12:37 EST , Service support ,
--- NOTE | 2020-04-04 12:35 | BD_ITS ---
STUDY: DUAL ENERGY X-RAY ABSORPTIOMETRY / DXA REASON FOR EXAM: Female, 54 years old. FINGER WAVER -- HX OF BREAST CANCER- TAKING AROMATASE INHIBITOR -- USES STEROID MEDS DAILY FOR ASTHMA -- TAKES LEVOTHYROXIN -- DOES LITTLE EXERCISE -- KUNAL OF 0.25 INCH TECHNIQUE: Bone Mineral Density (BMD) measurements of lumbar spine and bilateral hips were obtained. COMPARISON: None. FINDINGS: Lumbar Spine (L1-L4): g/cm2 (1.583) / T-score (3.4) / Z-score (4.3) Findings are suggestive of normal bone density with a low fracture risk. Left Femur Total: g/cm2 (1.092) / T-score (0.7) / Z-score (1.4) Left Femoral Neck: g/cm2 (1.060) / T-score (0.2) / Z-score (1.2) Right Femur Total: g/cm2 (1.062) / T-score (0.4) / Z-score (1.2) Right Femoral Neck: g/cm2 (1.079) / T-score (0.3) / Z-score (1.4) BD/Dexa Bone Density Study IMPRESSION: The patient is considered normal as outlined below according to World Bassem Organization (WHO) criteria with a low fracture risk. Reference Information: The T-score is the number of standard deviations above or below the standard which is normal for young adults at their peak bone mineral density. The World Health Organization (WHO) interprets the T-scores as follows: Above -1 Normal bone density Between -1 and -2.5 Osteopenia Equal to / or below -2.5 Osteoporosis As a practical clinical guideline, osteopenia may be graded as follows: Mild -1 through -1.5 Moderate -1.6 through -2.0 Severe -2.1 through -2.4 The Z-score is the number of standard deviations above or below age-matched controls. A Z-score of less than -1.5 would be considered abnormal. References: 1. NIH Osteoporosis and Related Bone Diseases www osteo.org 2. International Society for Clinical Densitometry www iscd.org 3. National Osteoporosis Foundation www nof.org Electronically Signed: Rhys Ojeda MD at 13:47 EST , Service support ,
[2020-04-04 17:08] LABS: Xtra Tube EP Lab EXTRA TUBE
[2020-04-05 13:38] LABS: CA 15-3 12.7 U/mL (0.0-25.0); CA 27.29 16.6 U/mL (0.0-38.6); Carcinoembryonic Antigen 1.9 ng/mL (0.0-4.7)
== END ==
PROVIDERS: Internal Medicine Medical Oncology; PCP Family Medicine; Referring Provider Student in an Organized Health Care Education/Training Program; Visit Provider Student in an Organized Health Care Education/Training Program
DX: C78.02 Secondary malignant neoplasm of left lung (principal)
CPT/HCPCS: 32408; 36415; 71046; 77012; 77080; 80053; 82378; 83615; 85025; 85730; 86300; 88172; 88305; 88313; 88341; 88342; 99155; 99156; J7040; A4216; C2613

== ENCOUNTER → 2020-04-05 08:34 | Outpatient (CLI) | payer OTHER, SELFPAY ==
[2020-02-21 10:55] VITALS: BMI 31.7
[2020-03-08 09:09] VITALS: BMI 31.4
[2020-04-04 09:18] VITALS: BMI 30.4
--- NOTE | 2020-04-05 08:35 | NM_ITS ---
CLINICAL: Female, 54 years old. BREAST CANCER AND WITH BONE METS -- LUNG BIOPSY YESTERDAY WHOLE BODY NUCLEAR BONE SCAN TECHNIQUE: Following the IV administration of 26.4 mCi of Tc MDP, whole body bone imaging was performed with a gamma camera following a three hour delay. FINDINGS: Focal increased uptake is seen along the anterolateral aspect of the left sixth rib. Focal increased uptake is also seen along the anterolateral aspect of the right fifth and sixth ribs. If there is no history of trauma, metastatic deposit should be ruled out. NM/Bone Scan Whole Body IMPRESSION: Focal increased radiopharmaceutical uptake along the anterolateral aspect of the right fifth and sixth ribs as well as the anterolateral aspect of the left sixth rib. Electronically Signed: Rhys Ojeda MD at 13:22 EST , Service support ,
== END ==
PROVIDERS: PCP Family Medicine; Referring Provider Internal Medicine Medical Oncology; Visit Provider Internal Medicine Medical Oncology
DX: C50.111 Malignant neoplasm of central portion of right female breast (principal)
CPT/HCPCS: 78306

== ENCOUNTER 2020-04-11 07:55 | Day surgery (SDC) | payer OTHER, SELFPAY ==
[2020-03-08 09:09] VITALS: BMI 31.4
[2020-04-10 14:01] VITALS: BMI 30.5
[2020-04-11] VITALS (8 sets, daily range): BP systolic 95–138; BP diastolic 68–82; PULSE 67–81; RESP 16; TEMP 36.3–36.6; O2SAT 92–94; BMI 30.2
[2020-04-11] MEDS: Lactated Ringers 1,000 ML 100 ML IV (08:35)
--- NOTE | 2020-04-11 09:46 | HP.PCM_ITS ---
Problem List (1) Encounter for adjustment and management of vascular access device Status: Acute (2) Breast cancer metastasized to lung Status: Acute Qualifiers: Laterality: right Qualified Code(s): C50.911 - Malignant neoplasm of un specified site of right female breast; C78.00 - Secondary malignant neoplasm of unspecified lung History and Physical Date of Admission: 04/11/20 Intake Vital Signs 04/10/20 Height 5 ft 4.25 in 04/10/20 Weight: 179 lb 9 oz 04/10/20 BMI 30.5 04/10/20 BP 155/85 H 04/10/20 Blood Pressure Location Rt brachial 04/10/20 Position Sitting 04/10/20 Respiration 20 H 04/10/20 Pulse 78 04/10/20 Pulse Source NIBP 04/10/20 Temp 98.4 F 04/10/20 Temp Source Temporal 04/10/20 Pulse Oximetry (%) 93 04/10/20 Oxygen Delivery Method room air Intake Visit Reasons: PORT PLACEMENT Chief Complaint: port placement Blast Furnace Checker Required: No Is patient in pain?: No Allergies No Known Allergies Allergy (Verified 04/10/20 14:03) Medications levothyroxine 88 mcg capsule 88 mcg PO QDAY cap 03/31/17 [History Confirmed 04/10/20] traZODone [Desyrel] 50 mg PO QHS 05/07/17 [History Confirmed 04/10/20] albuterol sulfate 2.5 mg INHALATION Q4H PRN #180 ml 09/06/19 [Rx Confirmed 04/10/20] albuterol sulfate 90 mcg/actuation aerosol inhaler 1 - 2 puff INHALATION Q4H PRN #3 device 09/06/19 [Rx Confirmed 04/10/20] Fluticasone Propion/Salmeterol [Wixela 250-50 Inhub] 1 ea IH BID 12/20/19 [History Confirmed 04/10/20] Folic Acid 1 mg PO DAILY 01/18/20 [History Confirmed 04/10/20] azelastine 137 mcg (0.1 %) nasal spray aerosol 2 spray INTRANASAL BID #30 ml 02/21/20 [Rx Confirmed 04/10/20] fluticasone 500 mcg-salmeterol 50 mcg/dose blistr powdr for inhalation 1 inh INHALATION BID #60 ea 02/21/20 [Rx Confirmed 04/10/20] fluticasone propionate 50 mcg/actuation nasal spray,suspension 2 spray INTRANASAL QDAY #15.8 ml 02/21/20 [Rx Confirmed 04/10/20] montelukast 10 mg tablet 10 mg PO QPM #30 tab 02/21/20 [Rx Confirmed 04/10/20] tiotropium bromide 1.25 mcg/actuation mist for inhalation 2 puff INHALATION DAILY #4 g 02/21/20 [Rx Confirmed 04/10/20] Tamoxifen Citrate [Nolvadex] 20 mg PO BID #60 tab 04/09/20 [Rx Confirmed 04/10/20] Is last menstrual period known: No Post menopausal: Yes Patient : No PFSH Medical History Sweet syndrome (Chronic) Moderate persistent asthma (Chronic) Asthma (Chronic) Head mass (Chronic) Asthma (Acute) Breast cancer, right (Acute) Breast cyst (Acute) High cholesterol (Acute) History of right lumpectomy (Acute) Hypothyroidism (Acute) Pneumonia (Acute) Sweets syndrome (Acute) Surgical History History of bunionectomy of left great toe (Acute ~1981) History of right breast biopsy (Acute ~12/14/19) History of tonsillectomy and adenoidectomy (Acute ~1968) Status post right breast lumpectomy (Acute) Family History Mother , AGE 36 Acute myocarditis Brother , AGE 34 AIDS Sarcoma Brother , AGE 44 Primary malignant neoplasm of anus Grandmother Lymphoma Social History (Updated 04/10/20 @ 14:[address] Jeffrey Patton MD) Smoking Status: Never smoker HPI HPI HPI: PANCHO SMITH, is a 54 F who presents to the office today for HPI HPI Surgical H&P: Yes HPI: PANCHO SMITH, is a 54 F who presents to the office today for port placement. The patient has metastatic breast cancer and requires port for chemotherapy for breast cancer. ROS General General: Yes breast cancer; no weight change, appetite, fatigue, colon cancer or weakness HEENT HEENT: No difficulty swallowing, eye injury, eye surgery, swollen glands or hoarseness Endo Endocrine: No thyroid disease, diabetes mellitus, thyroid cancer, Hair loss, heat intolerance or cold intolerance Skin Skin: No rash or changing moles Breast Breast: Yes right breast lump, abnormal mammogram and abnormal US; no left breast lump, breast pain or breast enlargement Musc Musculoskeletal: No back problems, arthritis, rheumatoid arthritis, gout or joint pain Cardio Cardiovascular: No murmur, pacemaker, heart disease, atrial fibrillation, high blood pressure, heart attack, heart stent, palpitations, shortness of breat with exertion or chest pain Psych Psychiatric: No depression, anxiety or hearing voices Resp Respiratory: Yes shortness of breath, No sleep apnea, Yes cough, No COPD, Yes asthma, No emphysema, No wheezing Gastro Gastrointestinal: No abdominal pain, No nausea or vomiting, No diarrhea, No constipation, No blood in stool, No acid reflux, No hemorrhoids, No ulcers, No gallbladder problem, No black,tarry stools Leo Hematologic: No blood thinners, No blood disorders, No bleeding, No anemia, No blood clots Neuro Neurologic: No system reviewed and no additional complaints, except as docu, No as per HPI, No abnormal walking, No abnormal hearing, No abnormal movements, No abnormal speech, No behavioral changes, No burning sensations, No confusion, No seizure-like activity, No unsteadiness, No dizziness, No localized weakness, No frequent falls, No headache(s), No lack of coordination, No loss of vision, No memory loss, No numbness, No other visual disturbances, No radiating pain, No restless legs, No sensory deficit, No fainting, No tingling, No tremor(s), No weakness, No other Exam Const General: cooperative Orientation: alert, oriented x3 Resp Effort & Inspection: normal respiratory effort Auscultation: clear to auscultation bilaterally Cardio Rate: regular rate Rhythm: regular rhythm Heart Sounds: no murmurs GI Inspection: non-distended Palpation: soft, nontender Assessment & Plan Problems 1. Carcinoma of breast metastatic to lung, unspecified laterality C50.919 2. Encounter for insertion of venous access port Z45.2 Plan The patient has metastatic breast cancer and requires port for treatment. I discussed right chest port placement with her in detail. I discussed the risks including but not limited to bleeding, infection, pneumothorax, line infection or DVT. The patient understands risks and is we will proceed. Jeffrey Patton MD Pager: [facility] [address] [place] [address], [address] [place] [address] Office: I have re-examined the patient. There are no clinical changes since date of exam.
[2020-04-11] MEDS: Cefazolin 2 GM in 0.9% Normal Saline 100 ML IV (09:56)
--- NOTE | 2020-04-11 10:56 | PCM.OPRPT ---
Problem List (1) Encounter for adjustment and management of vascular access device Status: Acute (2) Breast cancer metastasized to lung Status: Acute Qualifiers: Laterality: right Qualified Code(s): C50.911 - Malignant neoplasm of unspecified site of right female breast; C78.00 - Secondary malignant neoplasm of unspecified lung Report of Operation Date of Procedure: 04/11/20 Pre-Operative Diagnosis: Metastatic breast cancer need for vascular access port Post-Operative Diagnosis: Same Surgery/Procedure Performed:: Ultrasound and fluoroscopy guided right chest port placement utilizing right IJ Description of Procedure: After obtaining informed consent patient was brought back to the operating room MAC anesthesia was induced and the Right chest and neck were prepped in normal sterile fashion. Ultrasound was used to evaluate both IJs and the Right IJ was selected. Next, using a needle, the Right IJ was accessed and a guidewire was passed on into the superior vena cava under fluoroscopy guidance. A small incision was made over the puncture site and the dilator introducer was placed over the guidewire. Next this was capped and the pocket was made for the port. 1% lidocaine with epinephrine was injected in the proposed port site. An incision was made with scalpel. Electrocautery was used to make a pocket under the skin and subcutaneous tissue. Hemostasis was obtained. Next, the catheter was tunneled up to the neck incision site and placed through the introducer. The peel-away introducer was removed and the position of the catheter was confirmed on fluoroscopy. Next, the catheter was trimmed and attached to the port with the locking device. Interrupted 2-0 Vicryl sutures were used to anchor the port to the chest wall and then the port was placed inside the pocket. The pocket was then flushed with saline and the port irrigated with saline. There was good blood return and the port flushed easily. Next, heparin was injected into the port. The skin was closed with subcutaneous interrupted 3-0 Vicryl sutures. A single 3-0 Vicryl sutures placed under the skin at the neck incision site. Steri-Strips were placed as well as op sites. Patient tolerated procedure well, was taken to PACU in stable condition. Chest x-ray will be obtained. Grafts/Implants Used: 8 [place] [employer] - Admit VTE Documentation VTE Mechan Device Prophylaxis: SCD's
--- NOTE | 2020-04-11 10:58 | DCINST_ITS ---
Discharge Diet: No Restrictions - Pain medication may cause nausea. You should typically eat light foods as you take your pain medication. Discharge Activity: Return to Normal Activity, May Shower - with your bandage in place in 1-2 days after surgery. DO NOT SHOWER WHEN YOUR PORT IS ACCESSED. Call your doctor if your incision/area has: Continuous Slow Oozing, Sudden Increased Bleeding, Increased Pain/ Swelling, Increased Redness Call your doctor if you observe: Fever of 101 or Higher Remove Dressing in (days):: 3 - When you remove the bandage, leave the steri- strips intact until they fall off. Allergies/Adverse Reactions: Allergies No Known Allergies Allergy (Verified 04/11/20 08:16) Medications to take at Discharge levothyroxine 88 mcg capsule 88 mcg PO QDAY cap 03/31/17 traZODone [Desyrel] 50 mg PO QHS 05/07/17 albuterol sulfate 2.5 mg INHALATION Q4H PRN #180 ml 09/06/19 albuterol sulfate 90 mcg/actuation aerosol inhaler 1 - 2 puff INHALATION Q4H PRN #3 device 09/06/19 Fluticasone Propion/Salmeterol [Wixela 250-50 Inhub] 1 ea IH BID 12/20/19 azelastine 137 mcg (0.1 %) nasal spray aerosol 2 spray INTRANASAL BID #30 ml 02/21/20 fluticasone propionate 50 mcg/actuation nasal spray,suspension 2 spray INTRANASAL QDAY #15.8 ml 02/21/20 montelukast 10 mg tablet 10 mg PO QPM #30 tab 02/21/20 tiotropium bromide 1.25 mcg/actuation mist for inhalation 2 puff INHALATION DAILY #4 g 02/21/20 Tamoxifen Citrate [Nolvadex] 20 mg PO BID #60 tab 04/09/20 Primary Care Physician: Chastity Huff DO [Primary Care Provider] - Test Results: Test results from this visit will be discussed in further detail at your follow- up appointment, if applicable. Please Follow Up With: Jeffrey Patton MD When: Please call to schedule 2 week follow up appointment. [phone]
--- NOTE | 2020-04-11 11:00 | RAD_ITS ---
STUDY: X-RAY CHEST REASON FOR EXAM: Female, 54 years old. Post op port placement TECHNIQUE: Single AP portable view of the chest. COMPARISON: Comparison is made with prior study dated 04/04/2020. FINDINGS: A right-sided portacatheter as been placed. The tip is at the junction of the superior vena cava and right atrium. Surgical clips are seen in the right axillary region. Stable bilateral pulmonary nodules. There is no demonstrated pleural abnormality. Normal size heart. Normal mediastinum and santhosh. Normal visualized pulmonary arteries. Normal visualized aortic arch and descending thoracic aorta. There are diffuse degenerative changes of the visualized thoracic spine. Normal visualized ribs, clavicles, and shoulders. There is no demonstrated abnormality of the visualized soft tissue structures of the upper abdomen. RAD/CXR for Line Placement IMPRESSION: The tip of the right harley catheter is at the junction of the superior vena cava and right atrium. The lungs are unchanged. Electronically Signed: Rhys Ojeda MD at 11:17 EST , Service support ,
== END 2020-04-11 11:40 | disposition home or self-care (01) ==
LOC: SDC 07:57 → AC 07:58
PROVIDERS: PCP Family Medicine; Referring Provider Surgery; Visit Provider Surgery
PROC: (CPT 36561; principal; 2020-04-11 09:45)
DX: Z45.2 Encounter for adjustment and management of vascular access device (principal); C50.911 Malignant neoplasm of unspecified site of right female breast; C78.00 Secondary malignant neoplasm of unspecified lung; J45.40 Moderate persistent asthma, uncomplicated; E78.00 Pure hypercholesterolemia, unspecified; E03.9 Hypothyroidism, unspecified
CPT/HCPCS: 00532; 36561; 71045; 77001; 87426; J7120; C1788

== ENCOUNTER → 2020-04-17 16:10 | Outpatient (CLI) | payer OTHER, SELFPAY ==
[2020-03-08 09:09] VITALS: BMI 31.4
[2020-04-09 10:59] VITALS: BMI 31.0
[2020-04-16 11:43] VITALS: BMI 30.4
--- NOTE | 2020-04-17 16:11 | MRI_ITS ---
STUDY: MRI BRAIN WITH AND WITHOUT CONTRAST REASON FOR EXAM: Female, 54 years old. h/o breast ca, staging TECHNIQUE: Standardized multiplanar fat and water weighted pulse sequences were obtained. IV DOTAREM 17CC was administered for the contrast portion of the examination. COMPARISON: None. FINDINGS: Normal size of the ventricles and extra-axial spaces for the patient''s age. Normal white matter tracts of the supratentorial brain. Normal bilateral basal ganglia. Normal thalami. There is no extra-axial fluid accumulation. Normal flow voids within the major intracranial circulation suggesting patency by spin echo criteria. Normal venous enhancement. There is no enhancing intra-axial or extra-axial abnormality. Normal sella turcica, pituitary gland, infundibular stalk, optic chiasm and hypothalamus. Normal tectal plate and pineal gland. Normal midbrain, doreen and medulla. Normal cerebellum. Normal basal cisterns. Normal bilateral temporal bones. Normal bilateral internal auditory canals. No demonstrated orbital abnormality, within the constraints of a routine brain study. Normal visualized paranasal sinuses. Normal calvarium and skull base. Normal visualized soft tissue structures. Normal visualized upper cervical spine. MRI/Brain W/WO Contrast IMPRESSION: Normal unenhanced and enhanced MRI of the brain. Electronically Signed: Chaz Cabrera MD at 17:38 EST , Service support ,
== END ==
PROVIDERS: PCP Family Medicine; Referring Provider Internal Medicine Medical Oncology; Visit Provider Internal Medicine Medical Oncology
DX: C50.811 Malignant neoplasm of overlapping sites of right female breast (principal); C78.00 Secondary malignant neoplasm of unspecified lung
CPT/HCPCS: 70553; A9575

== ENCOUNTER → 2020-05-25 12:44 | Outpatient (CLI) | payer OTHER, SELFPAY ==
[2020-03-08 09:09] VITALS: BMI 31.4
[2020-05-21 10:28] VITALS: BMI 29.8
--- NOTE | 2020-05-25 12:47 | CT_ITS ---
STUDY: CT CHEST WITH CONTRAST REASON FOR EXAM: Female, 54 years old. R BREAST CANCER. History of lung metastasis. Following treatment. RADIATION DOSAGE (If Supplied By Facility): CTDIvol = ( 10.33 ) mGy, DLP = ( 357.87 ) mGycm TECHNIQUE: Transaxial imaging was performed following intravenous administration of IV 100mL Isovue-300. Multiplanar coronal and sagittal images were reformatted. Individualized dose optimization techniques were used for this CT. COMPARISON: Comparison is made with prior examination dated 03/19/2020. FINDINGS: A right-sided harley catheter seen with the tip in the superior vena cava. Is evidence of a skin thickening of the right breast. There is a 2 cm x 2.5 cm stellate lesion in the deep portion of the right breast. Surgical clips are seen in the right axillary region. The largest lymph node in the right axilla presently measures 8.4 mm. Once again, there are multiple nodular densities throughout both lungs. The previously seen nodular density in the anterior aspect of the left upper lobe has decreased in size. It presently measures 1.1 cm. It previously measured 1.4 cm. Stable 1 cm nodule in the left lower lobe. Small left pleural effusion. Normal heart and pericardium. There are multiple small lymph nodes within the mediastinum, which are normal in size and morphology most compatible with reactive lymph hyperplasia. Normal hilar regions. Normal enhanced pulmonary arteries. Normal aorta arch and descending thoracic aorta. There are multi-level degenerative changes of the thoracic spine. Fatty infiltration of the liver. CT/Chest WITH Contrast IMPRESSION: Persistent multiple nodules in both lungs. Slight decrease in size of the previously seen dominant nodule in the left upper lobe. Stellate lesion in the right breast. Surgical clips are seen in the right axilla. Electronically Signed: Rhys Ojeda MD at 13:19 EDT , Service support ,
[2020-05-25] MEDS: 0.9% Saline Lock 10 ML Syringe IV (13:00)
== END ==
PROVIDERS: PCP Family Medicine; Referring Provider Internal Medicine Medical Oncology; Visit Provider Internal Medicine Medical Oncology
DX: C50.111 Malignant neoplasm of central portion of right female breast (principal)
CPT/HCPCS: 71260; Q9967; A4216

== ENCOUNTER → 2020-07-11 07:44 | Outpatient (CLI) | payer OTHER, SELFPAY ==
[2020-03-08 09:09] VITALS: BMI 31.4
[2020-06-25 09:55] VITALS: BMI 29.6
[2020-07-10 05:54] VITALS: BMI 29.4
--- NOTE | 2020-07-11 07:45 | CT_ITS ---
STUDY: CT CHEST WITH CONTRAST REASON FOR EXAM: Female, 54 years old. BREAST CANCER-METS TO LUNG -TREATMENT RESPONSE. History of right lumpectomy. RADIATION DOSAGE (If Supplied By Facility): CTDIvol = ( 8.53 ) mGy, DLP = ( 338.83 ) mGycm TECHNIQUE: Transaxial imaging was performed following intravenous administration of IV 100mL Isovue-300. Multiplanar coronal and sagittal images were reformatted. Individualized dose optimization techniques were used for this CT. COMPARISON: Comparison is made with prior examination dated 05/25/2020. FINDINGS: A right-sided portacatheter is seen with the tip in the superior vena cava. Small benign-appearing bilateral axillary lymph nodes. The largest node is in the right axilla and measures 1.1 cm. There is a 3 cm x 3.3 cm speculated density in the right breast most likely corresponds to the lumpectomy site and postlumpectomy scarring. There is overlying thickening of the skin of the right breast. Stable 2.5 cm x 1.4 cm well-defined hypodense nodule in the posterior inferior aspect of the left breast. Diffuse reticular nodular pattern in both lungs. Findings are suggestive of a lymphangitic spread. Stable appearance of the dominant nodules in both lungs. Small bilateral pleural effusions slightly more prominent on the left side. The right pleural effusion is new as compared to prior study. Normal heart and pericardium. There are multiple small lymph nodes within the mediastinum, which are normal in size and morphology most compatible with reactive lymph hyperplasia. Normal hilar regions. Normal enhanced pulmonary arteries. Normal aorta arch and descending thoracic aorta. There are multi-level degenerative changes of the thoracic spine. Fatty infiltration of the liver. CT/Chest WITH Contrast IMPRESSION: New right pleural effusion. Stable left pleural effusion. Once again, there is evidence of diffuse reticular nodular pattern in both lungs. Findings are suggestive of a lymphangitic spread. There has been essentially no change since prior study. Stable changes in the right breast. Electronically Signed: Rhys Ojeda MD at 13:33 EDT , Service support ,
[2020-07-11] MEDS: 0.9% Saline Lock 10 ML Syringe IV (08:04)
== END ==
PROVIDERS: PCP Family Medicine; Referring Provider Internal Medicine Medical Oncology; Visit Provider Internal Medicine Medical Oncology
DX: C50.919 Malignant neoplasm of unspecified site of unspecified female breast (principal); C78.00 Secondary malignant neoplasm of unspecified lung
CPT/HCPCS: 71260; Q9967; A4216

== ENCOUNTER 2020-08-22 13:39 | Emergency (ER) | payer OTHER, SELFPAY ==
[2020-03-08 09:09] VITALS: BMI 31.4
[2020-08-22 13:05] VITALS: BMI 28.8
[2020-08-22 13:40] VITALS: BP 102/57; PULSE 124; RESP 18; TEMP 37.3; O2SAT 99; BMI 29.3
[2020-08-22 16:28] VITALS: BP 100/51; PULSE 112; RESP 20; O2SAT 99
--- NOTE | 2020-08-22 17:03 | EDS_ITS ---
HPI History of Present Illness Chief Complaint: Rash Informant: patient Narrative Narrative: Patient is a 54-year-old female with history of metastatic breast cancer to the lungs, currently on chemotherapy presenting for allergic reaction. Patient started having what seemed like hives on her hands and then spread to her legs last night. States is very itchy. She took Benadryl last night. She saw her oncology office today who was concerned when she felt that her lips were swollen and her throat was sore. They recommend she come to the emergency room for further evaluation of allergic reaction. Patient has chronic shortness of breath and cough associated with her cancer but states that is unchanged. She last had chemo on 08/13/2020 with a new agent. She last had Benadryl at 845 this morning. No other complaints at this time. [facility] Medical History Asthma Breast cancer, right Breast cyst Hand foot syndrome Head mass High cholesterol History of right lumpectomy Hypothyroidism Moderate persistent asthma Pneumonia Sweet syndrome Urticaria Home Medications levothyroxine 88 mcg capsule 88 mcg PO QDAY cap 03/31/17 [History Last Taken 04/11/20] trazodone 50 mg PO QHS 05/07/17 [History Last Taken Unknown] albuterol sulfate 2.5 mg INHALATION Q4H PRN #180 ml 09/06/19 [Rx Last Taken 04/11/20] albuterol sulfate 90 mcg/actuation aerosol inhaler 1 - 2 puff INHALATION Q4H PRN #3 device 09/06/19 [Rx Last Taken Unknown] fluticasone propionate 50 mcg/actuation nasal spray,suspension 2 spray INTRANASAL QDAY #15.8 ml 02/21/20 [Rx Last Taken Unknown] lidocaine-prilocaine 1 applicatio TP DAILY PRN PRN 30 Days #1 tube 04/12/20 [Rx Last Taken Unknown] ondansetron 8 mg PO Q8H PRN PRN 10 Days #30 tab.rapdis 04/12/20 [Rx Last Taken Unknown] prochlorperazine maleate 10 mg PO Q6H PRN PRN 10 Days #30 tab 04/12/20 [Rx Last Taken Unknown] Promethazine/Codeine Soln [Phenergan With Codeine Oral Solution] 5 ml PO Q6H PRN PRN #120 ml 04/23/20 [Rx Last Taken Unknown] tiotropium bromide 1.25 mcg/actuation mist for inhalation 2 puff INHALATION DAILY #4 g 07/10/20 [Rx Last Taken Unknown] tamoxifen 20 mg tablet 20 mg PO BID #60 tab 07/23/20 [Rx Last Taken Unknown] famotidine 20 mg PO BID #10 tab 08/22/20 [Rx Last Taken Unknown] prednisone 40 mg PO DAILY #10 tab 08/22/20 [Rx Last Taken Unknown] Allergy/AdvReac Type Severity Reaction Status Date / Time No Known Allergies Allergy Verified 08/22/20 13:40 Family History Mother , AGE 36 Acute myocarditis Brother , AGE 34 AIDS Sarcoma Brother , AGE 44 Primary malignant neoplasm of anus Grandmother Lymphoma Surgical History History of bunionectomy of left great toe (~1981) History of right breast biopsy (~12/14/19) History of tonsillectomy and adenoidectomy (~1968) Status post right breast lumpectomy Social History Smoking Status: Never smoker alcohol intake: never substance use type: does not use caffeine: Yes what type of physical activity do you participate in: none ROS ROS ED Constitutional Constitutional ED: Denies chills or fever(s) ENT ENT ED: Reports sore throat and other Details: lip swelling ; Denies ear pain Cardiovascular Cardiovascular: Denies chest pain or palpitations Respiratory/Chest Respiratory/Chest: Reports cough and dyspnea; Denies dyspnea on exertion or sputum Gastrointestinal Gastrointestinal: Denies abdominal pain, diarrhea, nausea or vomiting Genitourinary Genitourinary ED: Denies dysuria or hematuria Musculoskeletal Musculoskeletal: Denies myalgias Integumentary Reports rash and other Details: hives Neurologic Neurologic: Denies headache(s) or weakness Psychiatric Psychiatric: Denies depression EXAM Physical Exam Const Vital Signs: 08/22/20 13:40 08/22/20 16:28 Temperature 99.2 F H Temperature Source Temporal Pulse Rate 124 H 112 H Respiratory Rate 18 20 H Blood Pressure 102/57 L 100/51 L Blood Pressure Mean 72 67 Pulse Ox 99 99 Oxygen Delivery Method Room Air Room Air Positive well nourished and well developed General Appearance ED: well developed HEENT Reports moist mucous membranes HEENT Narrative: Normal phonation. No oral pharyngeal edema noted. No edema of the lips noted. Normal tongue. Eyes PERRL and EOMs intact bilaterally Neck supple and no JVD Neck Narrative: No stridor Chest Wall inspection of chest normal Chest Narrative: Port in right chest wall Resp normal respiratory effort and clear to auscultation bilaterally Auscultation: Negative for wheezes Cardio regular rate, regular rhythm and no murmurs GI normal to inspection, nondistended, normoactive bowel sounds Extremity Extremity Narrative: Bilateral edema of the hands, nonpitting General Extremety ED: Yes edema; Negative for tenderness General Extremity: edema Neuro oriented x3 Sensorium / Orientation: alert Psych mental status grossly normal Skin Skin Narrative: Scattered urticaria on extremities, most pronounced on the upper legs. Patient does have a rash on her hands and the bottom of her feet which apparently is from one of her chemo medications. MDM MDM MDM Narrative Medical decision making narrative: Patient evaluated for hives. She also has some sensation of lip swelling but she does not have any signs of anaphylaxis including wheezing, GI symptoms or oral pharyngeal swelling. She is given cocktail of Solu-Medrol, Pepcid and Benadryl while in the emergency room. She does have improvement of her symptoms. She will be discharged home on a burst of prednisone as well as a prescription for Pepcid. She has Benadryl to take at home. She will follow-up with her oncologist. They suspect her reaction is secondary to her current chemotherapy medication. Patient is counseled on return precautions. She verbalizes agreement understand with this plan. Given that her symptoms started yesterday and she only really has hives I do not think this is anaphylaxis I do not think she requires an EpiPen at this time. On reevaluation she does have improvement of her symptoms. Discharge Plan Triage Chief Complaint: Rash ED Provider: Digna Berry Dx/Rx/DC Orders Clinical Impression: Urticaria Instructions: ED Hives (Adult) Prescriptions: New prednisone 20 mg tablet 40 mg PO DAILY Qty: 10 RF: 0 famotidine 20 mg tablet 20 mg PO BID Qty: 10 RF: 0 No Action levothyroxine 88 mcg capsule 88 mcg capsule 88 mcg PO QDAY RF: 0 albuterol sulfate 2.5 mg /3 mL (0.083 %) solution for nebulization 2.5 mg INHALATION Q4H PRN (Reason: shortness of breath or wheezing) Qty: 180 RF: 6 albuterol sulfate 90 mcg/actuation HFA aerosol inhaler 1 - 2 puff INHALATION Q4H PRN (Reason: Asthma) Qty: 3 RF: 3 fluticasone propionate [Flonase Allergy Relief] 50 mcg/actuation spray,suspension 2 spray INTRANASAL QDAY Qty: 15.8 RF: 3 Spiriva Respimat 1.25 mcg/actuation mist 2 puff INHALATION DAILY Qty: 4 RF: 6 tamoxifen 20 mg tablet 20 mg PO BID Qty: 60 RF: 3 trazodone 50 MG tablet 50 mg PO QHS RF: 0 prochlorperazine maleate 10 MG tablet 10 mg PO Q6H PRN PRN (Reason: Nausea) 10 Days Qty: 30 RF: 2 ondansetron 8 MG tablet,disintegrating 8 mg PO Q8H PRN PRN (Reason: Nausea) 10 Days Qty: 30 RF: 3 lidocaine-prilocaine 30 GM cream 1 applicatio TP DAILY PRN PRN (Reason: Not Specified) 30 Days Qty: 1 RF: 2 Promethazine/Codeine Soln [Phenergan With Codeine Oral Solution] 5 ML Udc 5 ml PO Q6H PRN PRN (Reason: Cough) Qty: 120 RF: 0 Primary Care Provider: Chastity Huff Referrals: Chastity Huff DO [Primary Care Provider] - Activity Restrictions/Additional Instructions: Take Benadryl every 6 hours as needed for itching/allergy symptoms. Please follow-up with your oncologist tomorrow for further recommendations. Disposition Disposition: Home, Self Care
[2020-08-22 17:12] VITALS: BP 106/55; PULSE 99; RESP 16; O2SAT 99
[2020-08-22] MEDS: DiphenhydrAMINE 50 MG/ML Syringe IV (17:21)
[2020-08-22] MEDS: MethylPREDNISolone 125 MG/2 ML Vial IV (17:21)
[2020-08-22] MEDS: Famotidine 200 MG/20 ML MDV 20 MG in 0.9% Normal Saline (Pres. free 8 ML 300 MG IV (17:27)
[2020-08-22 19:04] VITALS: BP 106/69; PULSE 99; RESP 16; O2SAT 99
== END 2020-08-22 19:15 | disposition home or self-care (01) ==
PROVIDERS: Emergency Provider Emergency Medicine; PCP Family Medicine
DX: L50.9 Urticaria, unspecified (principal); J45.40 Moderate persistent asthma, uncomplicated; Z79.52 Long term (current) use of systemic steroids; Z79.899 Other long term (current) drug therapy
CPT/HCPCS: 96374; 96375; 99282; A4216; J3490

== ENCOUNTER → 2020-08-27 14:20 | Outpatient (CLI) | payer OTHER, SELFPAY ==
[2020-03-08 09:09] VITALS: BMI 31.4
[2020-08-13 08:57] VITALS: BMI 29.0
[2020-08-22 13:40] VITALS: BMI 29.3
--- NOTE | 2020-08-27 14:23 | CT_ITS ---
INDICATION: METS TO LUNG EXAMINATION: CT Chest W/ Contrast Injection TECHNIQUE: Helically acquired images were obtained of the chest following administration of IV contrast. A radiation dose optimization technique was used for this scan. 3D postprocessing images including MIPS were reviewed. IV Contrast dosage and agent: IV 100mL Isovue-370 COMPARISON: 07/11/2020. FINDINGS: Lungs: Redemonstration of diffuse reticular nodular opacities bilaterally. Stable appearance and size of dominant nodules in both lungs. Mediastinum: The cardiomediastinal silhouette is not enlarged. No mediastinal, hilar or axillary adenopathy. The thoracic aorta is unremarkable. No obvious filling defect seen within the visualized pulmonary arteries. Right IJ chest port is present with tip at the RA/SVC junction. Pleura: Slight decrease in size of trace bilateral pleural effusions. Bones/Soft tissues: There are diffuse degenerative changes of the spine. Unchanged appearance of post lumpectomy scarring in the right breast. Partially visualized hypodense nodule in the posterior inferior aspect of the left breast is again seen. Upper abdomen: No visualized abnormalities in the upper abdomen. CT/Chest WITH Contrast IMPRESSION: Stable diffuse reticulonodular opacities in the lungs concerning for lymphangitic spread. Slight decrease in size of bilateral trace pleural effusions. No new lymphadenopathy or metastases. Electronically Signed: Edison Deleon MD at 17:14 EDT Tel , Service support ,
[2020-08-27] MEDS: 0.9% Saline Lock 10 ML Syringe IV (14:47)
== END ==
PROVIDERS: PCP Family Medicine; Referring Provider Internal Medicine Medical Oncology; Visit Provider Internal Medicine Medical Oncology
DX: C50.111 Malignant neoplasm of central portion of right female breast (principal); C78.00 Secondary malignant neoplasm of unspecified lung; Z17.0 Estrogen receptor positive status [ER+]
CPT/HCPCS: 71260; Q9967

== ENCOUNTER → 2020-10-11 12:51 | Outpatient (CLI) | payer OTHER, SELFPAY ==
[2020-03-08 09:09] VITALS: BMI 31.4
[2020-09-24 08:25] VITALS: BMI 29.0
[2020-09-24 09:20] VITALS: BMI 29.0
--- NOTE | 2020-10-11 12:55 | CT_ITS ---
STUDY: CT CHEST WITH CONTRAST REASON FOR EXAM: Female, 55 years old. ASSESS TREATMENT RESPONSE. Patient has a history of right breast carcinoma and prior lumpectomy. RADIATION DOSAGE (If Supplied By Facility): CTDIvol = ( 10.695 ) mGy, DLP = ( 387.50 ) mGycm TECHNIQUE: Transaxial imaging was performed following intravenous administration of IV 100mL Isovue-300. Multiplanar coronal and sagittal images were reformatted. Individualized dose optimization techniques were used for this CT. COMPARISON: Comparison is made with prior examination dated 08/27/2020. FINDINGS: Multiple bilateral axillary lymph nodes. The largest lymph node measures 1.1 cm and is in the right axillary region. This is unchanged. Once again, there is diffuse reticular nodular opacities involving both lungs. The dominant nodule in the right upper lobe has increased in size as compared to prior study now measuring 8.3 mm x 8 mm as seen on axial image #43. Stable spiculated nodule in the left lower lobe. There now is evidence of focal infiltrate in the superior segment of the right lower lobe. New bilateral pleural effusions worse on the right side. Normal heart and pericardium. Normal mediastinum. Mildly enlarged right hilar lymph node. Normal enhanced pulmonary arteries. Normal aorta arch and descending thoracic aorta. There are multi-level degenerative changes of the thoracic spine. There is no demonstrated abnormality of the visualized upper abdomen. CT/Chest WITH Contrast IMPRESSION: New bilateral pleural effusions worse on the right side. Progressive diffuse bilateral reticular nodular pattern. Increased size of the nodule seen in the right upper lobe. Stable spiculated nodule in the left lower lobe. New infiltrate is seen in the superior segment of the right lower lobe. Electronically Signed: Rhys Ojeda MD at 20:02 EDT , Service support ,
[2020-10-11] MEDS: 0.9% Saline Lock 10 ML Syringe IV (13:23)
== END ==
PROVIDERS: PCP Family Medicine; Referring Provider Internal Medicine Medical Oncology; Visit Provider Internal Medicine Medical Oncology
DX: C50.111 Malignant neoplasm of central portion of right female breast (principal); Z17.0 Estrogen receptor positive status [ER+]; C78.00 Secondary malignant neoplasm of unspecified lung; J90 Pleural effusion, not elsewhere classified
CPT/HCPCS: 71260; Q9967; A4216

== ENCOUNTER → 2020-10-18 12:03 | Outpatient (CLI) | payer OTHER, SELFPAY ==
[2020-03-08 09:09] VITALS: BMI 31.4
[2020-10-16 08:23] VITALS: BMI 28.3
--- NOTE | 2020-10-18 12:04 | US_ITS ---
STUDY: SUPERFICIAL ULTRASOUND - RIGHT PLEURAL SPACE. REASON FOR EXAM: Female, 55 years old. BREAST CANCER/LUNG METS TECHNIQUE: A superficial ultrasound was performed with real-time and static bravo-scale imaging. COMPARISON: None. FINDINGS: Minimal right pleural effusion. Too small for safe thoracentesis. US/Chest IMPRESSION: Not enough pleural fluid for safe thoracentesis. Electronically Signed: Rhys Ojeda MD at 12:55 EDT , Service support ,
== END | disposition home or self-care (01) ==
PROVIDERS: PCP Family Medicine; Referring Provider Internal Medicine Medical Oncology; Visit Provider Internal Medicine Medical Oncology
DX: C50.919 Malignant neoplasm of unspecified site of unspecified female breast (principal); C78.00 Secondary malignant neoplasm of unspecified lung
CPT/HCPCS: 76604

== ENCOUNTER → 2020-11-14 16:49 | Outpatient (CLI) | payer OTHER, SELFPAY ==
[2020-03-08 09:09] VITALS: BMI 31.4
--- NOTE | 2020-11-14 16:58 | RAD_ITS ---
STUDY: XR Chest 2 Views 11/14/2020 4:58 PM REASON FOR EXAM: Female, 55 years old. CHEST PAIN LUNG METS COMPARISON: CT 8 TECHNIQUE: XR Chest 2 Views FINDINGS: There is no demonstrated pleural abnormality. There is a right Port-A-Cath and/or mediport in place. The tip is in the superior vena cava. Diffuse bilateral pulmonary nodularities suggesting either pneumonia or pulmonary metastatic disease. Enlarged heart size. Normal mediastinum. Normal santhosh. Prominent appearing increased interstitial lung markings. Normal visualized pulmonary arteries. There is atherosclerotic calcification of the aortic arch with tortuosity. There are diffuse degenerative changes of the visualized thoracic spine. There is degenerative osteoarthritis of the bilateral shoulders. There is no demonstrated abnormality of the visualized soft tissue structures of the upper abdomen. RAD/Chest PA and Lateral IMPRESSION: Diffuse bilateral pulmonary nodularities suggesting either pneumonia or pulmonary metastatic disease. Electronically Signed: Kalia Poe MD at 13:45 EDT , Service support ,
== END ==
PROVIDERS: PCP Family Medicine; Referring Provider Internal Medicine Medical Oncology; Visit Provider Internal Medicine Medical Oncology
DX: C50.911 Malignant neoplasm of unspecified site of right female breast (principal); C78.00 Secondary malignant neoplasm of unspecified lung
CPT/HCPCS: 71046

== ENCOUNTER → 2021-02-19 12:45 | Outpatient (CLI) | payer OTHER, SELFPAY ==
[2020-03-08 09:09] VITALS: BMI 31.4
--- NOTE | 2021-02-19 12:51 | CT_ITS ---
STUDY: CT CHEST T ABDOMEN WITH CONTRAST REASON FOR EXAM: Female, 55 years old. ASSESS TREATMENT RESPONSE for breast cancer. Prior right lumpectomy. RADIATION DOSAGE (If Supplied By Facility): CTDIvol = ( 12.35 ) mGy, DLP = ( 1053.36 ) mGycm TECHNIQUE: Transaxial imaging was performed following intravenous administration of IV 100mL Isovue-370. Individualized dose optimization techniques were used for this CT. COMPARISON: Comparison is made with prior examination dated 10/11/2020. FINDINGS: A right-sided portacatheter is seen with the tip in the superior vena cava. Surgical clips are seen in the right axillary region. Stable small benign-appearing bilateral axillary lymph nodes. CHEST Small bilateral pleural effusions with bibasilar atelectasis. The effusions have improved as compared to prior study. Once again, there is diffuse interstitial reticular nodular pattern involving both lungs. Stable 8 mm nodular density in the right upper lobe as seen on axial image #40. The previously seen nodular density in the left lower lobe Normal heart and pericardium. There are multiple small lymph nodes within the mediastinum, which are normal in size and morphology most compatible with reactive lymph hyperplasia. Stable mildly enlarged right hilar lymph nodes. Normal unenhanced pulmonary arteries. Normal aorta arch and descending thoracic aorta. There are multi-level degenerative changes of the thoracic spine. ABDOMEN The visualized lung bases are unremarkable. The visualized portions of the heart are within normal limits. Normal liver. Normal gallbladder and extrahepatic biliary system. Normal spleen. Normal pancreas. Normal bilateral adrenal glands. Normal right kidney. Normal left kidney. Normal visualized stomach. Normal small intestine. Normal colon. The appendix is visualized and appears normal. Normal abdominal aorta. Normal inferior vena cava. Normal retroperitoneum. Normal abdominal wall. There are diffuse degenerative changes of the visualized lumbar spine. CT/CT Chest AND Abd W/ Contrast IMPRESSION: Persistent reticular nodular pattern in both lungs as described with small bilateral pleural effusions. The previously seen nodular density in the peripheral lateral aspect of the left lower lobe has decreased in size. Electronically Signed: Rhys Ojeda MD at 15:03 EST , Service support ,
[2021-02-19] MEDS: 0.9% Saline Lock 10 ML Syringe IV (13:00)
== END ==
PROVIDERS: PCP Family Medicine; Referring Provider Internal Medicine Medical Oncology; Visit Provider Internal Medicine Medical Oncology
DX: C50.811 Malignant neoplasm of overlapping sites of right female breast (principal); C78.00 Secondary malignant neoplasm of unspecified lung; J90 Pleural effusion, not elsewhere classified
CPT/HCPCS: 71260; 74160; Q9967; A4216

== ENCOUNTER → 2021-07-11 | Outpatient (CLI) | payer OTHER, SELFPAY ==
[2020-03-08 09:09] VITALS: BMI 31.4
--- NOTE | 2021-07-11 12:46 | CT_ITS ---
STUDY: CT CHEST WITH CONTRAST REASON FOR EXAM: Female, 55 years old. MONITOR LUNG METS RADIATION DOSAGE (If Supplied By Facility): CTDIvol = ( 11.63 ) mGy, DLP = ( 469.91 ) mGycm TECHNIQUE: Transaxial imaging was performed following intravenous administration of IV 100mL Isovue-300. Multiplanar coronal and sagittal images were reformatted. Individualized dose optimization techniques were used for this CT. COMPARISON: Comparison is made with prior study dated 02/19/2021. FINDINGS: CHEST A right-sided portacatheter is seen with the tip in the superior vena cava. Stable small bilateral axillary lymph nodes. Stable diffuse bilateral increased interstitial markings involving both upper and lower lobes. The previously seen pleural effusions have resolved. The previously seen 8 mm nodule in the right upper lobe as previously seen on axial image #40 is not seen at this time. Normal heart and pericardium. There are multiple small lymph nodes within the mediastinum, which are normal in size and morphology most compatible with reactive lymph hyperplasia. Stable mildly enlarged right hilar lymph nodes. Normal unenhanced pulmonary arteries. Normal aorta arch and descending thoracic aorta. Normal osseous structures. Diffuse fatty infiltration of the liver. CT/Chest WITH Contrast IMPRESSION: Persistent diffuse increased interstitial markings in both lungs. The previously seen 8 mm nodular density in the right upper lobe is not seen at this time. The pleural effusions have cleared. Electronically Signed: Rhys Ojeda MD at 13:56 EDT ,
[2021-07-11] MEDS: 0.9% Saline Lock 10 ML Syringe IV (13:11)
[2021-07-11] MEDS: 0.9 % NaCl (Sterile) Posiflush 10 mL IV (13:11)
== END | disposition home or self-care (01) ==
PROVIDERS: PCP Family Medicine; Referring Provider Internal Medicine Medical Oncology; Visit Provider Internal Medicine Medical Oncology
DX: C78.00 Secondary malignant neoplasm of unspecified lung (principal); C80.1 Malignant (primary) neoplasm, unspecified
CPT/HCPCS: 71260; Q9967; A4216

== ENCOUNTER 2021-08-31 09:09 | Emergency (ER) | payer OTHER, SELFPAY ==
[2020-03-08 09:09] VITALS: BMI 31.4
[2021-08-31 09:10] VITALS: BP 150/75; PULSE 61; RESP 17; TEMP 36.1; O2SAT 97; BMI 30.4
--- NOTE | 2021-08-31 09:29 | CT_ITS ---
EXAM: CT ABDOMEN AND PELVIS WITHOUT INTRAVENOUS CONTRAST CLINICAL INDICATION: Left flank Pain TECHNIQUE: Helically acquired images were obtained of the abdomen and pelvis without intravenous contrast. This CT exam was performed using one or more of the following dose reduction techniques: automated exposure control, adjustment of the mA and/or kV according to patient size, and/or use of iterative reconstruction technique. This report was created using [employer] report generation technology. COMPARISON: CT Abdomen Pelvis dated 02/19/2021 FINDINGS: LOWER THORAX: Diffuse interstitial thickening of the lungs again noted. ABDOMEN: LIVER: Unremarkable. Homogeneous. GALLBLADDER AND BILE DUCTS: Unremarkable. No calcified gallstones. No gallbladder distention or wall edema. No intra- or extrahepatic biliary ductal dilation. PANCREAS: Unremarkable. No focal cystic mass. SPLEEN: Unremarkable. Normal size without focal cystic or solid mass. ADRENALS: Unremarkable. No nodules. KIDNEYS AND URETERS: 2 mm stone noted at the left ureterovesical junction associated with distended left renal collecting system and left perinephric edema. No intrarenal stone. Normal renal size and position. STOMACH AND BOWEL: Unremarkable. No bowel distention. No focal inflammatory change. PELVIS: APPENDIX: Appendix is visualized and normal in appearance. BLADDER: Urinary bladder is contracted. REPRODUCTIVE: Uterus is retroverted. ABDOMEN and PELVIS: INTRAPERITONEAL SPACE: Unremarkable. No ascites or other fluid collection. No free air. BONES/JOINTS: Unremarkable. No suspicious lytic or blastic abnormality. SOFT TISSUES: Unremarkable. No discrete abdominal or pelvic wall hernia. VASCULATURE: Unremarkable. Abdominal aorta is non-dilated. LYMPH NODES: Unremarkable. No enlarged lymph nodes. CT/Abdomen/Pelvis without Cont IMPRESSION: 1. Obstructive 2 mm stone at the left ureterovesical junction. 2. Persistent diffuse interstitial lung disease. Electronically Signed: Luisito Mckoy MD at 10:37 EDT ,
--- NOTE | 2021-08-31 09:32 | ED.VIS.FEGU ---
HPI HPI - Female History of Present Illness Chief Complaint: Complaint Informant: patient Narrative Narrative: Patient presents with urgency to urinate and left flank pain. She states last evening she felt the urge to urinate. But she had no dysuria urgency. No fevers or chills. No blood in the urine that she saw. She was able to urinate though. This morning she started with left flank pain. It is hard to get under control. She is pacing in the room. She is nauseated. She drank some water and did get dry heaves afterwards. No fevers or chills still. She has never had a kidney stone but there is a strong family history of them. She has been treated for breast cancer. She has a med port in the right upper chest but no problems with this. No change in medications recently. [facility] Medical History Asthma Breast cancer, right Breast cyst Diarrhea due to drug Drug-induced xerostomia Hand foot syndrome Head mass High cholesterol History of right lumpectomy Hyperphosphatemia Hypothyroidism Moderate persistent asthma Pneumonia Skin candidiasis Sweet syndrome Urticaria Home Medications levothyroxine 88 mcg capsule 88 mcg PO QDAY 03/31/17 [History Last Taken 04/11/20] trazodone 50 mg tablet 50 mg PO QHS 05/07/17 [History Last Taken Unknown] albuterol sulfate 2.5 mg (3 mL) inhalation Q4H PRN shortness of breath or wheezing #180 mL 09/06/19 [Rx Last Taken 04/11/20] albuterol sulfate 90 mcg/actuation aerosol inhaler 1 - 2 puff inhalation Q4H PRN Asthma #3 device 09/06/19 [Rx Last Taken Unknown] lidocaine-prilocaine 2.5 %-2.5 % topical cream 1 applicatio TP DAILY PRN PRN Not Specified 30 days #1 tube 04/12/20 [Rx Last Taken Unknown] ondansetron 8 mg disintegrating tablet 8 mg PO Q8H PRN PRN Nausea 10 days ##30 04/12/20 [Rx Last Taken Unknown] prochlorperazine maleate 10 mg tablet 10 mg PO Q6H PRN PRN Nausea 10 days #30 tabs 04/12/20 [Rx Last Taken Unknown] Promethazine/Codeine Soln [Phenergan With Codeine Oral Solution] 5 ml PO Q6H PRN PRN Cough #120 mL 04/23/20 [Rx Last Taken Unknown] tiotropium bromide 1.25 mcg/actuation mist for inhalation (Spiriva Respimat) 2 puff inhalation DAILY #4 grams 07/10/20 [Rx Last Taken Unknown] exemestane 25 mg tablet 25 mg PO DAILY 30 days #90 tabs 05/07/21 [Rx Last Taken Unknown] nystatin 100,000 unit/gram topical ointment 1 applic topical BID #30 grams 08/13/21 [Rx Last Taken Unknown] ondansetron 4 mg disintegrating tablet 4 mg PO Q8H PRN nausea and vomiting #10 tabs 08/31/21 [Rx Last Taken Unknown] oxycodone-acetaminophen 5 mg-325 mg tablet (Percocet) 1 tab PO Q6H PRN pain 3 days #12 tabs 08/31/21 [Rx Last Taken Unknown] tamsulosin 0.4 mg capsule (Flomax) 0.4 mg PO DAILY #10 caps 08/31/21 [Rx Last Taken Unknown] Allergy/AdvReac Type Severity Reaction Status Date / Time No Known Allergies Allergy Verified 08/31/21 09:09 Family History Mother , AGE 36 Acute myocarditis Brother , AGE 34 AIDS Sarcoma Brother , AGE 44 Primary malignant neoplasm of anus Grandmother Lymphoma Surgical History History of bunionectomy of left great toe (~1981) History of right breast biopsy (~12/14/19) History of tonsillectomy and adenoidectomy (~1968) Status post right breast lumpectomy Social History Smoking Status: Never smoker alcohol intake: never substance use type: does not use caffeine: Yes what type of physical activity do you participate in: none ROS ROS ED Constitutional Constitutional ED: Denies chills or fever(s) ENT ENT ED: Denies rhinorrhea or sore throat Cardiovascular Cardiovascular: Denies chest pain or palpitations Respiratory/Chest Respiratory/Chest: Denies cough or dyspnea Gastrointestinal Gastrointestinal: Reports nausea and vomiting; Denies abdominal pain, constipation, diarrhea or melena Genitourinary Genitourinary ED: Reports other Details: See history of present illness. Musculoskeletal Musculoskeletal: Denies arthralgias or myalgias Integumentary Denies rash Neurologic Neurologic: Denies weakness Endocrine Endocrinology: Denies polydipsia or polyuria Hematologic/Lymphatic Hematologic/Lymphatic: Denies easy bleeding or easy bruising Allergic/Immunologic Allergic/Immunologic ED: Denies urticaria EXAM Physical Exam Const Vital Signs: 08/31/21 09:10 08/31/21 10:27 08/31/21 11:07 Temperature 96.9 F L Temperature Source Temporal Pulse Rate 61 60 57 L Respiratory Rate 17 14 12 Blood Pressure 150/75 H 131/68 H 121/64 H Blood Pressure Mean 100 89 83 Pulse Ox 97 94 96 Oxygen Delivery Method Room Air Room Air Positive well nourished and well developed Constitutional Narrative: Patient is pacing [id number] in the room when I walk in. General Appearance ED: well developed HEENT Reports dry mucous membranes Mouth ED: Yes dry mucous membranes Mouth: dry mucous membranes Eyes General Eye ED: Negative for scleral icterus Neck no JVD Chest Wall inspection of chest normal Chest Narrative: PowerPort in the right upper chest is clean and intact. No erythema or tenderness. Resp normal respiratory effort Auscultation: Negative for rales, rhonchi or wheezes Cardio regular rate and regular rhythm GI normal to inspection, nondistended, normoactive bowel sounds Back/Spine Back/Spine Narrative: She does have some mild left CVA tenderness Extremity normal to inspection Neuro oriented x3 Psych mental status grossly normal Skin no rashes or lesions noted Skin Narrative: No vesicles noted on her back or abdomen MDM MDM MDM Narrative Medical decision making narrative: Blood work shows normal CBC. Electrolytes are relatively unremarkable. Creatinine is up a little bit but not out of range of her baseline range. Urine showed a large number of red cells. No convincing evidence of UTI. Her CAT scan showed a small distal left UVJ stone that is consistent with her symptoms. Patient is better after couple doses of meds. We will get her home on medications. We discussed reasons to return including worsening pain, nausea and vomiting and unable to keep meds down, fever or other concerns. Lab Data Labs: Laboratory Results - last 24 hr 08/31/21 08/31/2122 09:33 09:45 09:45 WBC 8.9 RBC 4.43 Hgb 13.5 Hct 41.8 MCV 94.4 MCH 30.5 MCHC 32.3 RDW Std Deviation 45.3 H RDW Coeff of Mounika 13.2 Plt Count 150 MPV 12.9 H Immature Gran % (Auto) 0.300 Neut % (Auto) 72.8 H Lymph % (Auto) 17.7 L [place] % (Auto) 7.0 Eos % (Auto) 1.8 Baso % (Auto) 0.4 Absolute Neuts (auto) 6.5 Absolute Lymphs (auto) 1.58 Nucleated RBC % 0 Sodium 141 Potassium 3.9 Chloride 109 H Carbon Dioxide 26.0 Anion Gap 6 BUN 14 Creatinine 1.28 H Estim Creat Clear Calc 41.87 Est GFR (MDRD) Af Amer 55 L Est GFR (MDRD) Non-Af 46 L BUN/Creatinine Ratio 10.9 Glucose 101 Calcium 9.3 Urine Color Yellow Urine Clarity Clear Urine pH 6.0 Ur Specific Maynard 1.025 Urine Protein 30 H Urine Glucose (UA) Normal Urine Ketones Negative Urine Occult Blood 250 H Urine Nitrite Negative Urine Bilirubin Negative Urine Urobilinogen Normal Ur Leukocyte Esterase 100 H Urine RBC 50-100 SEEN Urine WBC 5-10 SEEN Ur Squamous Epith Cells 0 SEEN Urine Bacteria 1+ Urine Mucus 0 SEEN Radiography Diagnostic Testing: Clinical Impression(s) from Imaging Studies Abdomen/Pelvis CT 08/31/21 09:29 IMPRESSION: 1. Obstructive 2 mm stone at the left ureterovesical junction. 2. Persistent diffuse interstitial lung disease. Electronically Signed: Luisito Mckoy MD at 10:37 EDT , Discharge Plan Triage Chief Complaint: Complaint ED Provider: Darin Smith Dx/Rx/DC Orders Clinical Impression: Kidney stone on left side Instructions: ED Kidney Stone w/ Colic Prescriptions: New oxycodone-acetaminophen [Percocet] 5-325 mg tablet 1 tab PO Q6H PRN (Reason: pain) 3 Days Qty: 12 0RF ondansetron 4 mg tablet,disintegrating 4 mg PO Q8H PRN (Reason: nausea and vomiting) Qty: 10 0RF tamsulosin [Flomax] 0.4 mg capsule 0.4 mg PO DAILY Qty: 10 0RF No Action levothyroxine 88 mcg capsule 88 mcg capsule 88 mcg PO QDAY albuterol sulfate 2.5 mg /3 mL (0.083 %) solution for nebulization 2.5 mg INHALATION Q4H PRN (Reason: shortness of breath or wheezing) Qty: 180 6RF albuterol sulfate 90 mcg/actuation HFA aerosol inhaler 1 - 2 puff INHALATION Q4H PRN (Reason: Asthma) Qty: 3 3RF Spiriva Respimat 1.25 mcg/actuation mist 2 puff INHALATION DAILY Qty: 4 6RF exemestane 25 mg tablet 25 mg PO DAILY 30 Days Qty: 90 3RF nystatin 100,000 unit/gram ointment 1 applic topical BID Qty: 30 0RF trazodone 50 MG tablet 50 mg PO QHS prochlorperazine maleate 10 MG tablet 10 mg PO Q6H PRN PRN (Reason: Nausea) 10 Days Qty: 30 2RF ondansetron 8 MG tablet,disintegrating 8 mg PO Q8H PRN PRN (Reason: Nausea) 10 Days Qty: 30 3RF lidocaine-prilocaine 30 GM cream 1 applicatio TP DAILY PRN PRN (Reason: Not Specified) 30 Days Qty: 1 2RF Promethazine/Codeine Soln [Phenergan With Codeine Oral Solution] 5 ML Udc 5 ml PO Q6H PRN PRN (Reason: Cough) Qty: 120 0RF Primary Care Provider: Chastity Huff Referrals: Corrie Zhu MD [STAFF PHYSICIAN] - 3-5 Days Chastity Huff DO [Primary Care Provider] - Disposition Disposition: Home, Self Care
[2021-08-31 09:36] LABS: Mucous, Urine 0 SEEN /hpf (<or=2+); Squamous Epithelial Cells - UA 0 SEEN /hpf (5-10)
[2021-08-31 09:45] LABS: Color, Urine Yellow (Yellow); Glucose, Dipstick Normal (Normal); Ketone-Dipstick Negative (Negative); Leukocyte Esterase-Dipstick 100 /ul (Negative); Nitrite-Dipstick Negative (Negative); Occult Blood-Urine 250 /ul (Negative); Protein-Dipstick 30 mg/dl (Negative); Specific Gravity, Urine 1.025 (1.002-1.030); Urine Bilirubin Dipstick Negative (Negative); Urine Clarity Clear (Clear); Urine Urobilinogen Normal (Normal)
[2021-08-31 09:54] LABS: Bacteria 1+ /hpf (None Seen); Red Blood Cells-Urine 50-100 SEEN /hpf (0-5); White Blood Cells 5-10 SEEN /hpf (0-5)
[2021-08-31] MEDS: Ondansetron 4 MG/2 ML Vial IV (09:54)
[2021-08-31] MEDS: Morphine 4 MG/ML Syringe IV (09:54)
[2021-08-31 09:57] LABS: Absolute Lymphocyte Count 1.58 X10^3/uL (0.83-4.51); Absolute Neutrophil Count 6.5 X10^3/uL (2.0-7.7); Basophil# 0.04 X10^3/uL; Basophil% 0.4 % (0-1); Eosinophil# 0.16 X10^3/uL; Eosinophils% 1.8 % (0-5); Hematocrit 41.8 % (37-47); Hemoglobin 13.5 g/dL (12.0-15.0); Lymphocyte # 1.58 X10^3/ul (0.83-4.51); Lymphocyte % 17.7 % (19-41); Mean Corp Hgb Conc 32.3 g/dL (32-36); Mean Corpuscular Hgb 30.5 pg (27.0-32.0); Mean Corpuscular Volume 94.4 fL (81-99); Mean Platelet Vol. 12.9 fl (6.2-12.0); Monocyte# 0.62 X10^3/uL; NRBC Flagged by Analyzer 0 % (0-5); Neutrophil # 6.49 X10^3/uL (2.7-7.7); Neutrophil % 72.8 % (47-70); Platelet Count 150 K/mm3 (150-450); RBC Distribution Width CV 13.2 % (11.6-14.6); RBC Distribution Width SD 45.3 fl (35.1-43.9); Red Blood Count 4.43 M/mm3 (4.2-5.4); White Blood Count 8.9 K/mm3 (4.4-11.0)
[2021-08-31 10:20] LABS: Anion Gap 6 (5-15); BUN 14 mg/dL (7-18); BUN/Creat Ratio 10.9 RATIO (10-20); Calcium,Total 9.3 mg/dL (8.5-10.1); Chloride 109 mmol/L (98-107); Creatinine, Serum 1.28 mg/dL (0.55-1.02); EST Glomerular Filtration Rate 46 mL/min (>60); Est Glom Filt Rate - Afr Amer 55 mL/min (>60); Estimated Creatinine Clearance 41.87 ml/min; Glucose 101 mg/dL (74-106); Potassium 3.9 mmol/L (3.5-5.1); Sodium Level 141 mmol/L (136-145)
[2021-08-31] MEDS: HYDROmorphone 1 MG/ML Syringe IV (10:21)
[2021-08-31 10:27] VITALS: BP 131/68; PULSE 60; RESP 14; O2SAT 94
[2021-08-31 11:07] VITALS: BP 121/64; PULSE 57; RESP 12; O2SAT 96
[2021-08-31 12:12] VITALS: BP 128/66; PULSE 52; RESP 16; O2SAT 98
[2021-08-31] MEDS: HYDROmorphone 0.5 MG/0.5 ML SYRINGE IV (12:17)
== END 2021-08-31 12:28 | disposition home or self-care (01) ==
PROVIDERS: Emergency Provider Emergency Medicine; PCP Family Medicine; Visit Provider Emergency Medicine
DX: N20.1 Calculus of ureter (principal); E78.00 Pure hypercholesterolemia, unspecified; E03.9 Hypothyroidism, unspecified; Z79.899 Other long term (current) drug therapy; Z84.1 Family history of disorders of kidney and ureter
CPT/HCPCS: 36591; 74176; 80048; 81001; 85025; 96361; 96374; 96375; 96376; 99282; J7040; A4216; J2405

== ENCOUNTER → 2021-09-13 | Outpatient (CLI) | payer OTHER, SELFPAY ==
[2020-03-08 09:09] VITALS: BMI 31.4
--- NOTE | 2021-09-13 14:21 | US_ITS ---
STUDY: RENAL ULTRASOUND - COMPLETE REASON FOR EXAM: Female, 55 years old. L URETERAL STONE TECHNIQUE: Ultrasound evaluation of the kidneys was performed with real-time and static gil-scale imaging. COMPARISON: None. FINDINGS: RIGHT KIDNEY: Normal location of the right kidney, which is normal in size. The right kidney measures 11.1 cm x 5 cm x 4 cm. There is a normal cortex of the right kidney. The renal cortex measures 1.0 cm. There is no right renal mass or cyst. There are no right renal calculi. There is an extra-renal pelvis of the right kidney. There is no distention of the renal calyces. DISTAL RIGHT URETER: There is non-visualization of the distal right ureter. There is no demonstrated right ureterovesical junction calculus. There is a visualized right ureteral jet. LEFT KIDNEY: Normal location of the left kidney, which is normal in size. The left kidney measures 11 cm x 5 cm x 5.3 cm. There is a normal cortex of the left kidney. The renal cortex measures 1.5 cm. There is no left renal mass or cyst. There are no left renal calculi. There is an extra-renal pelvis of the left kidney. There is no distention of the renal calyces. DISTAL LEFT URETER: There is non-visualization of the distal left ureter. There is no demonstrated left ureterovesical junction calculus. There is a visualized left ureteral jet. BLADDER: The distended urinary bladder has a volume of 445 ml. There is a normal wall thickness of the distended urinary bladder. There is no demonstrated mass within the urinary bladder. There are no demonstrated bladder calculi. US/Kidney and Bladder IMPRESSION: Bilateral extrarenal pelvis. No evidence of hydronephrosis. Electronically Signed: Rhys Ojeda MD at 15:08 EDT ,
== END | disposition home or self-care (01) ==
LOC: US 14:19
PROVIDERS: PCP Family Medicine; Referring Provider Urology; Visit Provider Urology
DX: N20.1 Calculus of ureter (principal)
CPT/HCPCS: 76770

== ENCOUNTER → 2021-11-28 | Outpatient (CLI) | payer OTHER, SELFPAY ==
[2020-03-08 09:09] VITALS: BMI 31.4
--- NOTE | 2021-11-28 12:48 | CT_ITS ---
STUDY: CT CHEST T ABDOMEN WITH CONTRAST REASON FOR EXAM: Female, 56 years old. Assess response to tx; met breast ca RADIATION DOSAGE (If Supplied By Facility): CTDIvol = ( 15.88 ) mGy, DLP = ( 1221.56 ) mGycm TECHNIQUE: Transaxial imaging was performed following intravenous administration of Oral and amp;amp; IV and amp;amp; 100mL Isovue-300. Multiplanar coronal and sagittal images were reformatted. Individualized dose optimization techniques were used for this CT. COMPARISON: Comparison is made with prior study dated 07/11/2021. FINDINGS: CHEST A right-sided Port-A-Cath is seen with the tip in the superior vena cava. Surgical clips are seen in the right axillary region. 1.1 cm lymph node is seen in the right axilla. This is unchanged. There is a 3.2 cm x 1.9 cm postoperative scirrhous abnormality in the right breast with overlying skin thickening. 1 scan, there is diffuse increased interstitial markings involving both lungs in the upper and lower lobes. No definite significant lung nodule is seen. There is no demonstrated pleural abnormality. Normal heart and pericardium. There are multiple small lymph nodes within the mediastinum, which are normal in size and morphology most compatible with reactive lymph hyperplasia. Stable minimally enlarged right hilar lymph node. Normal unenhanced pulmonary arteries. Normal aorta arch and descending thoracic aorta. There are multi-level degenerative changes of the thoracic spine. Diffuse fatty infiltration of liver. ABDOMEN There is decreased attenuation of the liver consistent with steatosis. Normal gallbladder and extrahepatic biliary system. Normal spleen. Normal pancreas. Normal bilateral adrenal glands. Normal right kidney. Normal left kidney. Normal visualized stomach. Normal small intestine. Normal colon. The appendix is visualized and appears normal. Normal abdominal aorta. Normal inferior vena cava. Normal retroperitoneum. Normal abdominal wall. Normal osseous structures. CT/CT Chest AND Abd W/ Contrast IMPRESSION: Stable examination. Diffuse fatty infiltration of the liver. Electronically Signed: Rhys Ojeda MD at 14:34 EDT ,
[2021-11-28] MEDS: 0.9 % NaCl (Sterile) Posiflush 10 mL IV (13:05)
[2021-11-28] MEDS: 0.9% Saline Lock 10 ML Syringe IV (13:20)
== END | disposition home or self-care (01) ==
LOC: CT 12:47
PROVIDERS: PCP Family Medicine; Referring Provider Nurse Practitioner Family; Visit Provider Nurse Practitioner Family
DX: C50.911 Malignant neoplasm of unspecified site of right female breast (principal); C78.00 Secondary malignant neoplasm of unspecified lung; K76.0 Fatty (change of) liver, not elsewhere classified
CPT/HCPCS: 71260; 74160; Q9967; A4216

== ENCOUNTER → 2022-06-19 | Outpatient (CLI) | payer OTHER, SELFPAY ==
[2020-03-08 09:09] VITALS: BMI 31.4
--- NOTE | 2022-06-19 08:18 | CT_ITS ---
STUDY: CT CHEST T ABDOMEN WITH CONTRAST REASON FOR EXAM: Female, 56 years old. MONITORING METASTATIC BR CANCER TO LUNG-IV ONLY RADIATION DOSAGE (If Supplied By Facility): CTDIvol = ( 14 ) mGy, DLP = ( 1275.45 ) mGycm TECHNIQUE: Transaxial imaging was performed following intravenous administration of IV 100mL Isovue-300. Multiplanar coronal and sagittal images were reformatted. Individualized dose optimization techniques were used for this CT. COMPARISON: Comparison is made with prior examination of November 28, 2021. FINDINGS: CHEST A right-sided portacatheter is seen with the tip in the superior vena cava. Surgical clips are once again seen in the right axillary region. Stable 1.1 cm lymph node in the right axilla. Stable irregular nodule with the spiculation in the right breast. Overlying skin thickening. There is a stable reticular nodular pattern involving both lungs as well as the upper and lower lobes. There are tiny subcentimeter nodule seen in both lungs. There is no demonstrated pleural abnormality. Normal heart and pericardium. There are multiple small lymph nodes within the mediastinum, which are normal in size and morphology most compatible with reactive lymph hyperplasia. Normal hilar regions. Normal unenhanced pulmonary arteries. Normal aorta arch and descending thoracic aorta. There are multi-level degenerative changes of the thoracic spine. Fatty infiltration of the liver. ABDOMEN There is hepatomegaly with diffuse hepatic enlargement. Normal gallbladder and extrahepatic biliary system. Normal spleen. Normal pancreas. Normal bilateral adrenal glands. Normal right kidney. Normal left kidney. Normal visualized stomach. Normal small intestine. Normal colon. The appendix is visualized and appears normal. There is scattered atherosclerotic calcification of the abdominal aorta, without a demonstrated aneurysm. Normal inferior vena cava. Normal retroperitoneum. Normal abdominal wall. Normal osseous structures. CT/CT Chest AND Abd W/ Contrast IMPRESSION: Reticular nodular pattern seen in both lungs with the tiny subcentimeter nodules throughout both lungs. Stable appearance of the right breast as well as the axillary lymph nodes. Fatty infiltration of the liver. Electronically Signed: Rhys Ojeda MD at 14:10 EDT ,
[2022-06-19] MEDS: 0.9% Saline Lock 10 ML Syringe IV (08:50)
== END | disposition home or self-care (01) ==
LOC: CT 08:17
PROVIDERS: PCP Family Medicine; Referring Provider Internal Medicine Medical Oncology; Visit Provider Internal Medicine Medical Oncology
DX: C50.911 Malignant neoplasm of unspecified site of right female breast (principal); C78.00 Secondary malignant neoplasm of unspecified lung
CPT/HCPCS: 71260; 74160; Q9967; A4216

== ENCOUNTER → 2022-10-06 | Outpatient (CLI) | payer OTHER, SELFPAY ==
[2020-03-08 09:09] VITALS: BMI 31.4
--- NOTE | 2022-10-06 12:45 | RAD_ITS ---
EXAM: XR ABDOMEN, 1 VIEW CLINICAL INDICATION: LT URETERAL CALCULUS LT URETERAL CALCULUS TECHNIQUE: Frontal supine view of the abdomen/pelvis. COMPARISON: CT scan chest and abdomen 06/19/2022. CT scan abdomen and pelvis 08/31/2021. FINDINGS: LOWER THORAX: No acute pathology. GASTROINTESTINAL TRACT: Unremarkable. Non-obstructive. No bowel or stomach distention. ORGANS: Unremarkable as visualized. No organomegaly. No abnormal calcifications. BONES/JOINTS: No acute pathology. SOFT TISSUES: No acute pathology. RAD/Abdomen Single View IMPRESSION: Non-obstructive bowel gas pattern. No visualized ureteral calculus. Electronically Signed: Jameson Saldivar MD at 7:29 EDT Reading Location ID and State: [facility] / [place] , Service support ,
== END | disposition home or self-care (01) ==
PROVIDERS: PCP Family Medicine; Referring Provider Urology; Visit Provider Urology
DX: N20.1 Calculus of ureter (principal)
CPT/HCPCS: 74018

== ENCOUNTER → 2023-01-12 | Outpatient (CLI) | payer OTHER, SELFPAY ==
[2020-03-08 09:09] VITALS: BMI 31.4
--- NOTE | 2023-01-12 12:39 | CT_ITS ---
STUDY: CT CHEST T ABDOMEN WITH CONTRAST REASON FOR EXAM: Female, 57 years old. MONITOR METASTATIC BREAST CA RADIATION DOSAGE (If Supplied By Facility): CTDIvol = ( 17.21 ) mGy, DLP = ( 1468.04 ) mGycm TECHNIQUE: Transaxial imaging was performed following intravenous administration of IV 100mL Isovue-300. Multiplanar coronal and sagittal images were reformatted. Individualized dose optimization techniques were used for this CT. COMPARISON: Comparison is made with prior study dated June 19, 2022. FINDINGS: CHEST A right-sided portacatheter is seen with the tip in the superior vena cava. Small bilateral axillary lymph nodes. Surgical clips are seen in the right axillary region. Stable irregular nodular density seen in the right breast. Once again, there is a reticular nodular pattern involving both lungs including the upper and lower lobes. This may represent lymphangitic spread. This has progressed as compared to prior study. There is no demonstrated pleural abnormality. Normal heart and pericardium. There are multiple small lymph nodes within the mediastinum, which are normal in size and morphology most compatible with reactive lymph hyperplasia. Normal hilar regions. Normal unenhanced pulmonary arteries. Normal aorta arch and descending thoracic aorta. There are multi-level degenerative changes of the thoracic spine. ABDOMEN There is decreased attenuation of the liver consistent with steatosis. Normal gallbladder and extrahepatic biliary system. Normal spleen. Normal pancreas. Normal bilateral adrenal glands. Normal right kidney. Normal left kidney. Normal visualized stomach. Normal small intestine. Normal colon. The appendix is visualized and appears normal. There is scattered atherosclerotic calcification of the abdominal aorta, without a demonstrated aneurysm. Normal inferior vena cava. Normal retroperitoneum. Small follicle in the right ovary. Normal abdominal wall. There are degenerative changes of the visualized lumbar spine. CT/CT Chest AND Abd W/ Contrast IMPRESSION: Since prior study, there has been a progression of the reticular nodular pattern in both lungs. Lymphangitic spread to be rule out. Stable spiculated nodule in the right breast Electronically Signed: Rhys Ojeda MD at 14:48 EST ,
== END | disposition home or self-care (01) ==
PROVIDERS: PCP Family Medicine; Referring Provider Internal Medicine Medical Oncology; Visit Provider Internal Medicine Medical Oncology
DX: C50.111 Malignant neoplasm of central portion of right female breast (principal); C78.00 Secondary malignant neoplasm of unspecified lung
CPT/HCPCS: 71260; 74160; Q9967; A4216

== ENCOUNTER → 2023-09-21 | Outpatient (CLI) | payer OTHER, SELFPAY ==
[2020-03-08 09:09] VITALS: BMI 31.4
--- NOTE | 2023-09-21 13:30 | CT_ITS ---
STUDY: CT CHEST T ABDOMEN WITH CONTRAST REASON FOR EXAM: Female, 58 years old. MONITOR METASTATIC BREAST CA RADIATION DOSAGE (If Supplied By Facility): CTDIvol = ( 15.83 ) mGy, DLP = ( 1399.62 ) mGycm TECHNIQUE: Transaxial imaging was performed following intravenous administration of IV 100mL Isovue-300. Multiplanar coronal and sagittal images were reformatted. Individualized dose optimization techniques were used for this CT. COMPARISON: Comparison is made with prior study dated January 12, 2023. FINDINGS: CHEST A right-sided portacatheter is seen with the tip in the superior vena cava. Stable small benign-appearing bilateral axillary lymph nodes. Surgical clips are seen in the right axilla. Stable irregular nodular density seen in the right breast. Once again, there is a reticular nodular pattern involving both lungs and both upper and lower lobes. This may represent lymphangitic spread. There are multiple small bilateral pulmonary nodules. The largest nodule measures 7.4 mm and is in the posterior aspect of the superior segment of the right lower lobe. There is no demonstrated pleural abnormality. Normal heart and pericardium. There are multiple small lymph nodes within the mediastinum, which are normal in size and morphology most compatible with reactive lymph hyperplasia. Normal hilar regions. Normal unenhanced pulmonary arteries. Normal aorta arch and descending thoracic aorta. There are multi-level degenerative changes of the thoracic spine. Diffuse fatty infiltration of the liver. ABDOMEN There is decreased attenuation of the liver consistent with steatosis. Normal gallbladder and extrahepatic biliary system. Normal spleen. Normal pancreas. Normal bilateral adrenal glands. Normal right kidney. Normal left kidney. Normal visualized stomach. Normal small intestine. Normal colon. The appendix is visualized and appears normal. There is scattered atherosclerotic calcification of the abdominal aorta, without a demonstrated aneurysm. Normal inferior vena cava. Normal retroperitoneum. Normal abdominal wall. There are mild degenerative changes of the visualized lumbar spine. CT/CT Chest AND Abd W/ Contrast IMPRESSION: Persistent increased interstitial markings in both lungs although there has been improvement. Multiple bilateral small pulmonary nodules. Electronically Signed: Rhys Ojeda MD at 12:37 EDT ,
== END | disposition home or self-care (01) ==
LOC: CT 13:13
PROVIDERS: PCP Family Medicine; Referring Provider Internal Medicine Medical Oncology; Visit Provider Internal Medicine Medical Oncology
DX: C50.111 Malignant neoplasm of central portion of right female breast (principal); C78.00 Secondary malignant neoplasm of unspecified lung
CPT/HCPCS: 71260; 74160; Q9967

== ENCOUNTER → 2023-10-01 | Outpatient (CLI) | payer OTHER, SELFPAY ==
[2020-03-08 09:09] VITALS: BMI 31.4
== END | disposition home or self-care (01) ==
LOC: LAB 10:18
PROVIDERS: PCP Family Medicine; Visit Provider Internal Medicine Medical Oncology
DX: C50.911 Malignant neoplasm of unspecified site of right female breast (principal); C78.00 Secondary malignant neoplasm of unspecified lung

== ENCOUNTER 2023-12-09 21:16 | Inpatient (IN) | payer OTHER, SELFPAY ==
[2020-03-08 09:09] VITALS: BMI 31.4
[2023-12-09] VITALS (9 sets, daily range): BP systolic 112–126; BP diastolic 56–73; PULSE 97–110; RESP 19–27; TEMP 37.2–37.3; O2SAT 86–95; BMI 32.4
--- NOTE | 2023-12-09 21:39 | CT_ITS ---
EXAM: CT ANGIOGRAPHY CHEST WITHOUT AND WITH INTRAVENOUS CONTRAST CLINICAL INDICATION: dyspnea. History of metastatic breast cancer. TECHNIQUE: Helically acquired angiography images were obtained of the chest as per pulmonary angiogram protocol without and with intravenous contrast. This CT exam was performed using one or more of the following dose reduction techniques: automated exposure control, adjustment of the mA and/or kV according to patient size, and/or use of iterative reconstruction technique. MIP reconstructed images were created and reviewed. CONTRAST: IV 100mL Isovue-370 RADIATION DOSE: Total DLP: 492.97 mGy-cm. COMPARISON: CT chest of 09/21/2023. FINDINGS: LIMITATIONS: Respiratory motion. PULMONARY ARTERIES: Unremarkable. Normal in caliber. No pulmonary embolism. AORTA: Unremarkable. Normal in caliber. No evidence of dissection. GREAT VESSELS OF AORTIC ARCH: Unremarkable. Normal in caliber. No evidence of dissection. LUNGS AND PLEURAL SPACES: Biapical emphysematous blebs are present with a right apical bulla. Pulmonary interstitial markings are thickened bilaterally. Groundglass opacities are noted throughout both lungs with a mosaic pattern, with scattered areas of superimposed airspace disease, right greater than left. Small bilateral pleural effusions are present. Scattered small noncalcified pulmonary nodules are again noted but are within the proximal poorly visualized due to the developing airspace disease. No pneumothorax. HEART: No significant pericardial effusion. MEDIASTINUM: Mild bilateral hilar adenopathy has developed. A slightly enlarged precarinal nodes present. THYROID: Unremarkable. No thyroid lesions. BONES/JOINTS: Old right rib fractures. Old left rib fractures. Degenerative spurring throughout the thoracic spine. No acute osseous abnormality. No suspicious lytic or blastic abnormality. LYMPH NODES: Normal sized axillary lymph nodes. No axillary adenopathy. INTRAPERITONEAL SPACE: Visualized portions of the liver, pancreas, spleen, and adrenal glands are unremarkable. Small wedge-shaped cortical scarring noted at the upper pole of the left kidney. The right renal upper pole is unremarkable. No pneumoperitoneum is noted. OTHER: Chemotherapy infusion port remains in place. CT/CTA Chest W/WO Contrast IMPRESSION: Negative for PE. No thoracic aortic dissection. Interval development of extensive bilateral groundglass opacities, with bilateral patchy bilateral airspace disease and small bilateral pleural effusions, most likely due to pulmonary edema. Interval development of bilateral hilar adenopathy. Electronically Signed: Salbador Whipple MD at 23:28 EDT ,
--- NOTE | 2023-12-09 21:40 | EKG12_ITS ---
Test Reason : SOB Blood Pressure : / mmHG Vent. Rate : 102 BPM Atrial Rate : 102 BPM P-R Int : 154 ms QRS Dur : 088 ms QT Int : 328 ms P-R-T Axes : 018 074 032 degrees QTc Int : 427 ms Sinus tachycardia Otherwise normal ECG Confirmed by NASEEM RUDD, NURIA ([id number]), desk editor ENRIQUETA LUZ ([id number]) on 12/11/2023 2:11:10 PM Referred By: KATHLEEN Confirmed By:NURIA GUSMAN MD
--- NOTE | 2023-12-09 21:41 | ED.VIS.DYS ---
HPI History of Present Illness Chief Complaint: Shortness of Breath Detail of Chief Complaint: Shortness of breath Informant: patient Narrative Narrative: Patient presents to the emergency department with complaint of shortness of breath that is been intermittent for several days. Patient states that she was diagnosed with COVID 1 week ago when she took a home test. Patient states that she has had cough and COVID symptoms since November 29. Today she noted that she had intermittent low-grade fevers up to 100.5. Patient also noticed that at home her oxygen level dropped to 84%. She is complaining of exertional dyspnea. She continues with occasional cough that is mostly nonproductive. She denies chest pain. Patient has history of breast cancer currently being treated with hormone therapy and targeted therapy. No history of PE or DVT. [facility] Medical History Skin candidiasis Hyperphosphatemia Diarrhea due to drug Drug-induced xerostomia Hand foot syndrome Urticaria History of right lumpectomy Breast cancer, right Sweet syndrome Moderate persistent asthma Head mass Pneumonia Breast cyst Asthma Hypothyroidism High cholesterol Home Medications ?Medication ?Instructions ?Recorded ?Last Taken ?Type levothyroxine 88 mcg capsule 88 mcg PO QDAY 03/31/17 04/11/20 History albuterol sulfate 2.5 mg/3 mL 2.5 mg (3 mL) inhalation Q4H PRN 09/06/19 04/11/20 Rx (0.083 %) solution for nebulization shortness of breath or wheezing #180 mL albuterol sulfate 90 mcg/actuation 1 - 2 puff inhalation Q4H PRN 09/06/19 Unknown Rx aerosol inhaler Asthma #3 device lidocaine-prilocaine 2.5 %-2.5 % 1 applicatio TP DAILY PRN PRN Not 04/12/20 Unknown Rx topical cream Specified 30 days #1 tube prochlorperazine maleate 10 mg 10 mg PO Q6H PRN PRN Nausea 10 04/12/20 Unknown Rx tablet days #30 tabs ondansetron 4 mg disintegrating 4 mg PO Q8H PRN nausea and 08/31/21 Unknown Rx tablet vomiting #10 tabs exemestane 25 mg tablet See Rx Instructions .Route 07/30/23 Unknown Rx .COMPLEX #90 tabs erdafitinib 3 mg tablet (Balversa) 3 mg PO DAILY 12/09/23 Unknown History Allergy/AdvReac Type Severity Reaction Status Date / Time No Known Allergies Allergy Verified 12/09/23 21:22 Family History Mother , AGE 36 Acute myocarditis Brother , AGE 34 AIDS Sarcoma Brother , AGE 44 Primary malignant neoplasm of anus Grandmother Lymphoma Surgical History Status post right breast lumpectomy History of right breast biopsy (~12/14/19) History of bunionectomy of left great toe (~1981) History of tonsillectomy and adenoidectomy (~1968) Social History Smoking Status: Never smoker alcohol intake: never substance use type: does not use caffeine: Yes what type of physical activity do you participate in: none ROS ROS ED Review of Systems ROS Unobtainable: other Constitutional Constitutional ED: Reports fever(s) and lethargy; Denies chills, sweats or weight loss Eyes Eyes: Denies blurry vision, change in vision or diplopia ENT ENT ED: Denies rhinorrhea or sore throat Cardiovascular Cardiovascular: Denies chest pain, orthopnea or racing heartbeat Respiratory/Chest Respiratory/Chest: Reports cough, dyspnea and dyspnea on exertion; Denies orthopnea or sputum Gastrointestinal Gastrointestinal: Denies abdominal pain, diarrhea, nausea or vomiting Genitourinary Genitourinary ED: Denies dysuria, hematuria or urinary frequency Musculoskeletal Musculoskeletal: Denies arthralgias, back pain, myalgias or neck pain Integumentary Denies abscess, Abrasions or rash Neurologic Neurologic: Denies headache(s) or weakness Psychiatric Psychiatric: Denies anxiety, depression or suicidal thoughts Endocrine Endocrinology: Denies polydipsia, polyphagia or polyuria Hematologic/Lymphatic Hematologic/Lymphatic: Denies easy bleeding, easy bruising or lymphadenopathy Allergic/Immunologic Allergic/Immunologic ED: Denies mouth swelling, tongue swelling or urticaria EXAM Physical Exam Const Vital Signs: 12/09/23 21:18 12/09/23 21:21 12/09/23 21:40 Temperature 98.9 F 98.9 F Temperature Source Oral Oral Pulse Rate 110 H 104 H Respiratory Rate 24 H 20 H Respiratory Effort Respiratory Depth Respiratory Pattern Blood Pressure 126/68 H 121/56 H Blood Pressure Mean 87 77 Pulse Ox 86 95 93 Oxygen Delivery Method Room Air Nasal Cannula Nasal Cannula Oxygen Flow Rate (L/min) 6 6 12/09/23 21:51 12/09/23 22:18 12/09/23 22:21 Temperature 99.1 F Temperature Source Oral Pulse Rate 103 H 99 97 Respiratory Rate 22 H 24 H 22 H Respiratory Effort Respiratory Depth Respiratory Pattern Normal Blood Pressure 114/73 114/73 Blood Pressure Mean 86 86 Pulse Ox 94 95 Oxygen Delivery Method Nasal Cannula Oxygen Flow Rate (L/min) 6 12/09/23 23:00 12/09/23 23:18 Temperature Temperature Source Pulse Rate 98 Respiratory Rate 19 H Respiratory Effort Normal Respiratory Depth Normal Respiratory Pattern Normal Blood Pressure 119/60 Blood Pressure Mean 79 Pulse Ox 93 Oxygen Delivery Method Nasal Cannula Nasal Cannula Oxygen Flow Rate (L/min) 4 4 Positive well nourished and well developed General Appearance ED: well developed and NAD HEENT Reports TM's clear and moist mucous membranes normocephalic and atraumatic; Negative for trauma or tenderness Tympanic Membrane ED: Yes TM's clear Eyes PERRL and EOMs intact bilaterally General Eye ED: Negative for pale conjunctiva or scleral icterus Neck no lymphadenopathy, supple and no JVD General: Negative for tenderness Chest Wall inspection of chest normal and palpation of chest normal Chest: Negative for tenderness Resp normal respiratory effort and clear to auscultation bilaterally Resp Narrative: Mild tachypnea with mild conversational dyspnea. No accessory muscle use or retractions. Occasional faint expiratory wheeze noted bilaterally. Effort and Inspection: Negative for respiratory distress or pain with movement Auscultation: wheezes; Negative for rhonchi or diminished lung sounds Cardio regular rate, regular rhythm, S1 normal heart sound, S2 normal heart sound and no murmurs Peripheral Pulses: pulses 2+ throughout GI normal to inspection, nondistended, normoactive bowel sounds, soft to palpation, non-tender, non-distended and no masses Back/Spine no CVA tenderness and no thoracic nor lumbar tenderness Extremity normal to inspection General Extremety ED: Negative for edema General Extremity: Negative for edema Neuro oriented x3, CN's II-XII intact bilaterally, no sensory deficits noted and gait normal Sensorium / Orientation: awake, alert, oriented to person, oriented to place and oriented to time Motor Exam: strength 5/5 throughout and strength abnormal Psych mental status grossly normal Skin no rashes or lesions noted and no wounds MDM MDM MDM Narrative Medical decision making narrative: Patient presents with dyspnea and hypoxemia with COVID diagnosis. In the differential would be pneumonia versus PE given risk factors of COVID and breast cancer. IV line will be established. Patient will have labs obtained as well as blood cultures. Will obtain imaging and do CTA of chest to rule out PE versus pneumonia. CBC with differential white count of 4.6 with hemoglobin of 13.9 and platelet count of 175. Chemistries unremarkable. Lactate normal at 1.2. BNP normal at 4.6. CTA of the chest obtained showed no evidence for PE. She had bilateral groundglass opacities. While in department she received DuoNeb aerosol and given Decadron 6 mg p.o. Case discussed with hospitalist will evaluate patient for admission Lab Data Attestation: I reviewed the patient's lab results. Labs: Laboratory Results - last 24 hr 12/09/23 12/09/23 21:49 22:04 WBC 4.6 RBC 4.54 Hgb 13.9 Hct 40.9 MCV 90.1 MCH 30.6 MCHC 34.0 RDW Std Deviation 41.9 RDW Coeff of Mounika 12.7 Plt Count 175 MPV 12.6 H Immature Gran % (Auto) 0.200 Neut % (Auto) 71.4 H Lymph % (Auto) 15.4 L Bowie % (Auto) 12.6 H Eos % (Auto) 0.4 Baso % (Auto) 0.0 Absolute Neuts (auto) 3.3 Absolute Lymphs (auto) 0.71 L Nucleated RBC % 0 Sodium 131 L Potassium 3.6 Chloride 99 Carbon Dioxide 21.0 Anion Gap 12 BUN 18 Creatinine 1.26 H Estim Creat Clear Calc 50.30 Est GFR (MDRD) Af Amer 56 L Est GFR (MDRD) Non-Af 46 L BUN/Creatinine Ratio 14.3 Glucose 109 H Lactic Acid 1.2 Calcium 9.1 B-Natriuretic Peptide 4.6 Radiography Diagnostic Testing: Clinical Impression(s) from Imaging Studies Chest CTA 12/09/23 21:39 IMPRESSION: Negative for PE. No thoracic aortic dissection. Interval development of extensive bilateral groundglass opacities, with bilateral patchy bilateral airspace disease and small bilateral pleural effusions, most likely due to pulmonary edema. Interval development of bilateral hilar adenopathy. Electronically Signed: Salbador Whipple MD at 23:28 EDT , EKG Initial EKG: Attestation: I personally reviewed and interpreted this EKG as follows: Comments: Sinus tachycardia with rate of 102 bpm with no acute ST segment changes Discharge Plan Triage Chief Complaint: Shortness of Breath ED Provider: Danilo Garcia Dx/Rx/DC Orders Clinical Impression: COVID-19, Respiratory failure, Hypoxemia, History of breast cancer Prescriptions: No Action levothyroxine 88 mcg capsule 88 mcg PO QDAY albuterol sulfate 2.5 mg /3 mL (0.083 %) solution for nebulization 2.5 mg INHALATION Q4H PRN (Reason: shortness of breath or wheezing) Qty: 180 6RF albuterol sulfate 90 mcg/actuation HFA aerosol inhaler 1 - 2 puff INHALATION Q4H PRN (Reason: Asthma) Qty: 3 3RF prochlorperazine maleate 10 MG tablet 10 mg PO Q6H PRN PRN (Reason: Nausea) 10 Days Qty: 30 2RF lidocaine-prilocaine 30 GM cream 1 applicatio TP DAILY PRN PRN (Reason: Not Specified) 30 Days Qty: 1 2RF ondansetron 4 mg tablet,disintegrating 4 mg PO Q8H PRN (Reason: nausea and vomiting) Qty: 10 0RF Balversa 3 mg tablet 3 mg PO DAILY exemestane 25 mg tablet See Rx Instructions .ROUTE .COMPLEX Qty: 90 3RF Dose Instruction: TAKE 1 TABLET DAILY Rx Instructions: TAKE 1 TABLET DAILY Primary Care Provider: Chastity Huff Referrals: Chastity Huff DO [Primary Care Provider] - Print Language: Marshallese Disposition Disposition: Acute Care Hospital [facility]
[2023-12-09] MEDS: Ipratropium/Albuterol Sulfate 3 ML AMPUL.NEB INHALATION (21:49)
[2023-12-09 21:56] LABS: Absolute Lymphocyte Count 0.71 X10^3/uL (0.83-4.51); Absolute Neutrophil Count 3.3 X10^3/uL (2.0-7.7); Eosinophil# 0.02 X10^3/uL; Eosinophils% 0.4 % (0-5); Hematocrit 40.9 % (37-47); Hemoglobin 13.9 g/dL (12.0-15.0); Lymphocyte # 0.71 X10^3/ul (0.83-4.51); Lymphocyte % 15.4 % (19-41); Mean Corpuscular Hgb 30.6 pg (27.0-32.0); Mean Corpuscular Volume 90.1 fL (81-99); Mean Platelet Vol. 12.6 fl (6.2-12.0); Monocyte# 0.58 X10^3/uL; Monocyte% 12.6 % (0-10); NRBC Flagged by Analyzer 0 % (0-5); Neutrophil # 3.29 X10^3/uL (2.7-7.7); Neutrophil % 71.4 % (47-70); Platelet Count 175 K/mm3 (150-450); RBC Distribution Width CV 12.7 % (11.6-14.6); RBC Distribution Width SD 41.9 fl (35.1-43.9); Red Blood Count 4.54 M/mm3 (4.2-5.4); White Blood Count 4.6 K/mm3 (4.4-11.0)
[2023-12-09 22:13] LABS: Anion Gap 12 (5-15); BUN 18 mg/dL (7-18); BUN/Creat Ratio 14.3 RATIO (10-20); Calcium,Total 9.1 mg/dL (8.5-10.1); Chloride 99 mmol/L (98-107); Creatinine, Serum 1.26 mg/dL (0.55-1.02); EST Glomerular Filtration Rate 46 mL/min (>60); Est Glom Filt Rate - Afr Amer 56 mL/min (>60); Glucose 109 mg/dL (74-106); Potassium 3.6 mmol/L (3.5-5.1); Sodium Level 131 mmol/L (136-145)
[2023-12-09 22:28] LABS: BNP,B-Type NATRIURETIC PEPTIDE 4.6 pg/mL (0-100)
[2023-12-09 22:58] LABS: Lactic Acid 1.2 mmol/L (0.4-1.9)
[2023-12-09] MEDS: dexAMETHasone 4 MG Tablet 6 MG PO (23:12)
--- NOTE | 2023-12-09 23:39 | PCM.HP.STD ---
HPI - General General Date of Admission: 12/09/23 Date of Service: 12/09/23 Chief Complaint: Shortness of breath for 4 days HPI Narrative PANCHO SMITH, is a 58 F with multiple comorbidities came to ED for shortness of breath, exertional dyspnea that started about 4 days ago but was tested COVID-positive 1 week ago. Her symptoms started with runny nose, generalized weakness, tiredness about 10 days ago. She has chronic cough due to asthma but got worse for about 1 week but it is dry. She had fever today low-grade 100.5 Fahrenheit. She denies chest pain pressure or tightness. At home she found her pulse ox 84% at home therefore came to ED. In ED, pulse ox 86% on room air, tachypneic and required 6 L of oxygen. Mild tachycardia. Denies nausea vomiting headache or sore throat. She is able to eat with mild loss of appetite She also has CA breast with mets to lung and follows Dr. Martin. CTA chest was done in ED which showed no evidence for PE. Individually reviewed shows bilateral diffuse groundglass opacities mainly in the lower lobes on the top of chronic interstitial changes. Patient is started on dexamethasone 6 mg IV further admitted. The patient's usual blood pressure is in the low 100s. In ED her blood pressure was 119/60 but at times it drops into the 90s. Lactic acid normal. [facility] Medical History Skin candidiasis Hyperphosphatemia Diarrhea due to drug Drug-induced xerostomia Hand foot syndrome Urticaria History of right lumpectomy Breast cancer, right Sweet syndrome Moderate persistent asthma Head mass Pneumonia Breast cyst Asthma Hypothyroidism High cholesterol Home Medications ?Medication ?Instructions ?Recorded ?Last Taken ?Type levothyroxine 88 mcg capsule 88 mcg PO QDAY 03/31/17 04/11/20 History albuterol sulfate 2.5 mg/3 mL 2.5 mg (3 mL) inhalation Q4H PRN 09/06/19 04/11/20 Rx (0.083 %) solution for nebulization shortness of breath or wheezing #180 mL albuterol sulfate 90 mcg/actuation 1 - 2 puff inhalation Q4H PRN 09/06/19 Unknown Rx aerosol inhaler Asthma #3 device lidocaine-prilocaine 2.5 %-2.5 % 1 applicatio TP DAILY PRN PRN Not 04/12/20 Unknown Rx topical cream Specified 30 days #1 tube prochlorperazine maleate 10 mg 10 mg PO Q6H PRN PRN Nausea 10 04/12/20 Unknown Rx tablet days #30 tabs ondansetron 4 mg disintegrating 4 mg PO Q8H PRN nausea and 08/31/21 Unknown Rx tablet vomiting #10 tabs exemestane 25 mg tablet See Rx Instructions .Route 07/30/23 Unknown Rx .COMPLEX #90 tabs erdafitinib 3 mg tablet (Balversa) 3 mg PO DAILY 12/09/23 Unknown History Allergy/AdvReac Type Severity Reaction Status Date / Time No Known Allergies Allergy Verified 12/09/23 21:22 Family History Mother , AGE 36 Acute myocarditis Brother , AGE 34 AIDS Sarcoma Brother , AGE 44 Primary malignant neoplasm of anus Grandmother Lymphoma Surgical History Status post right breast lumpectomy History of right breast biopsy (~12/14/19) History of bunionectomy of left great toe (~1981) History of tonsillectomy and adenoidectomy (~1968) Social History Smoking Status: Never smoker alcohol intake: never substance use type: does not use caffeine: Yes what type of physical activity do you participate in: none ROS ROS Narrative Constitutional: Reports acute onset fatigue and weakness. Mild fever HEENT: Reports systems reviewed and no addt'l complaints, except as documented Respiratory/Chest: Chronic lung disease. Shortness of breath/dyspnea at rest. CVS: No chest pain pressure or tightness. Gastrointestinal: Denies coffee ground emesis, hematemesis or vomiting. No abdominal pain Genitourinary: Denies burning urination or new urinary tract symptoms Musculoskeletal: Denies acute joint pain or limited range of motion. No acute injury Neurologic: Denies seizure-like symptoms. skin: No ulcer. No rash Endocrinology: Reports systems reviewed and no addt'l complaints, except as documented Hematologic/Lymphatic: Reports systems reviewed and no addt'l complaints, except as documented Rest 14 ROS are negative except as mentioned in HPI Vital Signs Vital Signs Vital Signs: 12/09/23 21:18 12/09/23 21:21 12/09/23 21:40 Temperature 98.9 F 98.9 F Temperature Source Oral Oral Pulse Rate 110 H 104 H Respiratory Rate 24 H 20 H Respiratory Effort Respiratory Depth Respiratory Pattern Blood Pressure 126/68 H 121/56 H Blood Pressure Mean 87 77 Pulse Ox 86 95 93 Oxygen Delivery Method Room Air Nasal Cannula Nasal Cannula Oxygen Flow Rate (L/min) 6 6 12/09/23 21:51 12/09/23 22:18 12/09/23 22:21 Temperature 99.1 F Temperature Source Oral Pulse Rate 103 H 99 97 Respiratory Rate 22 H 24 H 22 H Respiratory Effort Respiratory Depth Respiratory Pattern Normal Blood Pressure 114/73 114/73 Blood Pressure Mean 86 86 Pulse Ox 94 95 Oxygen Delivery Method Nasal Cannula Oxygen Flow Rate (L/min) 6 12/09/23 23:00 12/09/23 23:18 Temperature Temperature Source Pulse Rate 98 Respiratory Rate 19 H Respiratory Effort Normal Respiratory Depth Normal Respiratory Pattern Normal Blood Pressure 119/60 Blood Pressure Mean 79 Pulse Ox 93 Oxygen Delivery Method Nasal Cannula Nasal Cannula Oxygen Flow Rate (L/min) 4 4 Weight Weight: 189 lb Body Mass Index (BMI) 32.4 Physical Exam Narrative General: Alert, Oriented x3, Cooperative. BMI 32.4 kg/m? HEENT: Atraumatic, PERRLA, EOMI, Normocephalic Oral: No Gingival or Mucosal Lesions/ Ulcerations Neck: Supple, No JVD, Negative Carotid Bruits Chest wall/Lungs: Right chest wall Mediport. Air entry diminished in all lung [place]. Bilateral lung bases inspiratory rales. Cardiovascular: Sinus tachycardia, normal S1, Normal S2, soft systolic murmur Abdomen: Bowel Sounds Present, Soft, Non Tender, Non-Distended : No dysuria. No renal angle tenderness. No suprapubic tenderness. Extremities: No edema, Capillary Refill Less than 3 Seconds Skin: No rashes, No breakdown Musculoskeletal: No Tenderness to Palpation of Joints or Extremities Neurological: Cranial nerves II-XII grossly intact, DTR 2+/4. No acute focal neurological deficit. Psych/Mental Status: Flat affect Results Lab / Micro Data 12/09/23 21:49 12/09/23 21:49 Labs: Laboratory Results - last 24 hr 12/09/23 21:49: WBC 4.6, RBC 4.54, Hgb 13.9, Hct 40.9, MCV 90.1, MCH 30.6, MCHC 34.0, RDW Std Deviation 41.9, RDW Coeff of Mounika 12.7, Plt Count 175, MPV 12.6 H, Immature Gran % (Auto) 0.200, Neut % (Auto) 71.4 H, Lymph % (Auto) 15.4 L, [place] % (Auto) 12.6 H, Eos % (Auto) 0.4, Baso % (Auto) 0.0, Absolute Neuts (auto) 3.3, Absolute Lymphs (auto) 0.71 L, Nucleated RBC % 0, Sodium 131 L, Potassium 3.6, Chloride 99, Carbon Dioxide 21.0, Anion Gap 12, BUN 18, Creatinine 1.26 H, Estim Creat Clear Calc 50.30, Est GFR (MDRD) Af Amer 56 L, Est GFR (MDRD) Non-Af 46 L, BUN/Creatinine Ratio 14.3, Glucose 109 H, Calcium 9.1, B-Natriuretic Peptide 4.6 12/09/23 22:04: Lactic Acid 1.2 Micro: Microbiology 12/09/23 21:49 Mucosa - Nose SARS-CoV-2, Influenza & RSV (PCR) - Final SARS-CoV-2 (COVID 19) Imaging Radiology Impression Chest CTA 12/09/23 21:39 IMPRESSION: Negative for PE. No thoracic aortic dissection. Interval development of extensive bilateral groundglass opacities, with bilateral patchy bilateral airspace disease and small bilateral pleural effusions, most likely due to pulmonary edema. Interval development of bilateral hilar adenopathy. Electronically Signed: Salbador Whipple MD at 23:28 EDT , Assessment & Plan Assessment/Plan (1) Acute hypoxemic respiratory failure due to COVID-19: (2) Pneumonia due to COVID-19 virus: PLAN: Plan This is a 58-year-old female being admitted for acute hypoxic respiratory failure due to COVID-19 pneumonia 1. Acute hypoxic respiratory failure: Patient is being admitted in PCU. ABG ordered. CTA individually reviewed and shows bilateral groundglass opacities with bilateral patchy airspace consolidation on background of chronic interstitial changes. Patient on 4 L of oxygen 2. Bilateral COVID-19 pneumonia with possible secondary bacterial pneumonia: Patient is started on IV dexamethasone and remdesivir. IV ceftriaxone to cover secondary infection. ID consulted for further as patient has centimeters breast with mets to lung, immunocompromised host 3. CA breast, stage IV with mets to lung in April 2020: Patient follows Dr. Martin. Patient on Aromasin and Balversa. 4. Chronic moderate persistent asthma: Patient is not a smoker. Has asthma and follow-up Dr. Robert Amin, last seen in office in June 2020. On low-dose Spiriva and Wixela. Last PFT in June 2018 was grossly within normal limit. 5. History of Sweet syndrome and hand-foot syndrome: Patient was on methotrexate in the past that has been discontinued 6. Other chronic comorbidities include dyslipidemia, hypothyroidism: Home medication continued Living will/advanced directive/end of life care: Patient does not have living will or advanced directive. She does not have designated power of assistant prosecuting attorney for health. After discussion of benefits/risks procedures involved with full code, DNR CC arrest and DNR CC, the patient opted for full code. Patient does want artificial life support including intubation, tube feed, ventilator and/chest compression, central venous catheter, vasopressor and DC shock if needed Total time spent in [id number] encounter in discussion of advanced directive 17 minutes. Microbiology Past 72 Hours 12/09/23 21:49 Mucosa - Nose SARS-CoV-2, Influenza & RSV (PCR) - Final SARS-CoV-2 (COVID 19) Laboratory Results 12/09/23 21:49: WBC 4.6, RBC 4.54, Hgb 13.9, Hct 40.9, MCV 90.1, MCH 30.6, MCHC 34.0, RDW Std Deviation 41.9, RDW Coeff of Mounika 12.7, Plt Count 175, MPV 12.6 H, Immature Gran % (Auto) 0.200, Neut % (Auto) 71.4 H, Lymph % (Auto) 15.4 L, [place] % (Auto) 12.6 H, Eos % (Auto) 0.4, Baso % (Auto) 0.0, Absolute Neuts (auto) 3.3, Absolute Lymphs (auto) 0.71 L, Nucleated RBC % 0, Sodium 131 L, Potassium 3.6, Chloride 99, Carbon Dioxide 21.0, Anion Gap 12, BUN 18, Creatinine 1.26 H, Estim Creat Clear Calc 50.30, Est GFR (MDRD) Af Amer 56 L, Est GFR (MDRD) Non-Af 46 L, BUN/Creatinine Ratio 14.3, Glucose 109 H, Calcium 9.1, Magnesium 2.2, B-Natriuretic Peptide 4.6 12/09/23 22:04: Lactic Acid 1.2 Clinical Impression(s) from Imaging Studies Chest CTA 12/09/23 21:39 IMPRESSION: Negative for PE. No thoracic aortic dissection. Interval development of extensive bilateral groundglass opacities, with bilateral patchy bilateral airspace disease and small bilateral pleural effusions, most likely due to pulmonary edema. Interval development of bilateral hilar adenopathy. Electronically Signed: Salbador Whipple MD at 23:28 EDT , Charges/Coding Visit Charges Inpatient E&M: 06994 Init Hosp L3
[2023-12-10] VITALS (11 sets, daily range): BP systolic 92–119; BP diastolic 51–69; PULSE 69–97; RESP 18–31; TEMP 35.7–37.7; O2SAT 91–96; BMI 32.0
[2023-12-10 00:01] LABS: Magnesium 2.2 mg/dL (1.6-2.6)
[2023-12-10] MEDS: 0.9% Normal Saline (1000mL) 1,000 ML 500 ML IV (01:22)
[2023-12-10] MEDS: Remdesivir 200 MG in 0.9% Normal Saline (250mL Bag) 210 ML 250 MG IV (02:15)
[2023-12-10 02:31] LABS: CPK Total, Creatine Kinase 206 U/L (26-192)
[2023-12-10 03:06] LABS: Allen Test Positive; Base Excess -7 mmol/L (-2 to +2); Bicarbonate 17.5 mmol/L (22-26); Blood Gas Specimen Type ART; Mode Not entered; O2 Delivery Device Cannula; PO2 74 mmHG (75-100); SITE R Radial; SO2 95 % (95-99); Total Carbon Dioxide 18 mmol/L; pCO2 26.6 mmHg (35-45); pH 7.43 (7.35-7.45)
[2023-12-10] MEDS: KCL 20MEQ in 0.9% NS 20 MEQ/1,000 ML IV.SOLN. 75 MEQ IV (03:41)
[2023-12-10] MEDS: Enoxaparin 30 MG/0.3 ML Syringe SC ×2 (03:42→22:34)
[2023-12-10] MEDS: Ceftriaxone 1 GM/50 ML BAG IV ×2 (03:42→22:35)
[2023-12-10 06:40] LABS: Absolute Lymphocyte Count 0.49 X10^3/uL (0.83-4.51); Absolute Neutrophil Count 2.1 X10^3/uL (2.0-7.7); Basophil# 0.01 X10^3/uL; Basophil% 0.4 % (0-1); Hematocrit 37.7 % (37-47); Hemoglobin 12.7 g/dL (12.0-15.0); Lymphocyte # 0.49 X10^3/ul (0.83-4.51); Lymphocyte % 17.4 % (19-41); Mean Corp Hgb Conc 33.7 g/dL (32-36); Mean Corpuscular Hgb 30.5 pg (27.0-32.0); Mean Corpuscular Volume 90.6 fL (81-99); Mean Platelet Vol. 12.8 fl (6.2-12.0); Monocyte# 0.22 X10^3/uL; Monocyte% 7.8 % (0-10); NRBC Flagged by Analyzer 0 % (0-5); Neutrophil # 2.08 X10^3/uL (2.7-7.7); POSITIVE DIFFERENTIAL YES; POSITIVE MORPHOLOGY YES; Platelet Count 182 K/mm3 (150-450); RBC Distribution Width CV 12.8 % (11.6-14.6); RBC Distribution Width SD 42.6 fl (35.1-43.9); Red Blood Count 4.16 M/mm3 (4.2-5.4); White Blood Count 2.8 K/mm3 (4.4-11.0)
[2023-12-10 07:15] LABS: Differential Comment SCANNED; Differential Indicated SCAN CRITERIA MET
[2023-12-10 07:17] LABS: ALB/GLOB Ratio 0.5 RATIO (0.9-2.4); AST(SGOT) 128 U/L (15-37); Alanine Aminotransfer ALT/SGPT 103 U/L (13-56); Albumin, Serum 2.5 g/dL (3.2-5.0); Alkaline Phosphatase 91 U/L (45-117); Anion Gap 9 (5-15); BUN 14 mg/dL (7-18); Calcium,Total 8.7 mg/dL (8.5-10.1); Chloride 106 mmol/L (98-107); Creatinine, Serum 1.08 mg/dL (0.55-1.02); EST Glomerular Filtration Rate 55 mL/min (>60); Est Glom Filt Rate - Afr Amer 67 mL/min (>60); Estimated Creatinine Clearance 58.29 ml/min; Globulin 4.6 g/dL (2.2-4.2); Glucose 149 mg/dL (74-106); Potassium 3.9 mmol/L (3.5-5.1); Protein, Total 7.1 g/dL (6.4-8.2); Sodium Level 135 mmol/L (136-145)
--- NOTE | 2023-12-10 09:59 | PN.HOSP_ITS ---
Reason for Visit Reason for Visit: Diagnoses Pneumonia due to coronavirus disease 2019 (12/09/23) Acute respiratory failure with hypoxia (12/09/23) COVID-19 (12/09/23) Subjective Subjective Increased oxygen requirements. Objective Data Objective Data Vital Signs: Vital Signs Temp Pulse Resp BP Pulse Ox O2 Del Method O2 Flow Rate 37.2 C 88 18 119/60 93 Nasal Cannula 4 12/10/23 03:22 12/10/23 03:22 12/10/23 03:22 12/10/23 03:22 12/10/23 03:22 12/10/23 03:22 12/10/23 03:22 Oxygen Flow Rate (L/min) 4 Oxygen Delivery Method Nasal Cannula Weight: 84.6 kg Body Mass Index (BMI) 32.0 Intake & Output: Intake and Output for Last 24 Hours 12/08/23 12/09/23 12/10/23 23:59 23:59 23:59 Intake Total 1300 / 1300 Balance 1300 / 1300 Lab / Micro Data 12/10/23 06:23 12/10/23 06:23 Labs: Laboratory Results - last 24 hr 12/09/23 21:49: WBC 4.6, RBC 4.54, Hgb 13.9, Hct 40.9, MCV 90.1, MCH 30.6, MCHC 34.0, RDW Std Deviation 41.9, RDW Coeff of Mounika 12.7, Plt Count 175, MPV 12.6 H, Immature Gran % (Auto) 0.200, Neut % (Auto) 71.4 H, Lymph % (Auto) 15.4 L, [place] % (Auto) 12.6 H, Eos % (Auto) 0.4, Baso % (Auto) 0.0, Absolute Neuts (auto) 3.3, Absolute Lymphs (auto) 0.71 L, Nucleated RBC % 0, Sodium 131 L, Potassium 3.6, Chloride 99, Carbon Dioxide 21.0, Anion Gap 12, BUN 18, Creatinine 1.26 H, Estim Creat Clear Calc 50.30, Est GFR (MDRD) Af Amer 56 L, Est GFR (MDRD) Non-Af 46 L, BUN/Creatinine Ratio 14.3, Glucose 109 H, Calcium 9.1, Magnesium 2.2, Total Creatine Kinase 206 H, C-React Prot Ext Range 216.00 H, B-Natriuretic Peptide 4.6 12/09/23 22:04: Lactic Acid 1.2 12/10/23 06:23: WBC 2.8 L, RBC 4.16 L, Hgb 12.7, Hct 37.7, MCV 90.6, MCH 30.5, MCHC 33.7, RDW Std Deviation 42.6, RDW Coeff of Mounika 12.8, Plt Count 182, MPV 12.8 H, Immature Gran % (Auto) 0.400, Neut % (Auto) 74.0 H, Lymph % (Auto) 17.4 L, [place] % (Auto) 7.8, Eos % (Auto) 0.0, Baso % (Auto) 0.4, Absolute Neuts (auto) 2.1, Absolute Lymphs (auto) 0.49 L, Nucleated RBC % 0, Differential Comment SCANNED, Sodium 135 L, Potassium 3.9, Chloride 106, Carbon Dioxide 19.0 L, Anion Gap 9, BUN 14, Creatinine 1.08 H, Estim Creat Clear Calc 58.29, Est GFR (MDRD) Af Amer 67, Est GFR (MDRD) Non-Af 55 L, BUN/Creatinine Ratio 13.0, Glucose 149 H , Calcium 8.7, Total Bilirubin 0.40, AST 128 H, ALT 103 H, Alkaline Phosphatase 91, Total Protein 7.1, Albumin 2.5 L, Globulin 4.6 H, Albumin/Globulin Ratio 0.5 L Micro: Microbiology 12/09/23 21:49 Mucosa - Nose SARS-CoV-2, Influenza & RSV (PCR) - Final SARS-CoV-2 (COVID 19) ABG Data ABG results: ABG 12/10/23 03:02 Specimen Type ART Sample Site R Radial pH 7.43 Bicarbonate Actual 17.5 L Total CO2 18 Base Excess -7 L O2 Saturation 95 O2 % 4.0 ABG pCO2 26.6 L ABG pO2 74 L Ned Test Positive O2 Delivery Device Cannula Vent Mode Not entered Radiography Diagnostic Testing: Radiology Impression Chest CTA 12/09/23 21:39 IMPRESSION: Negative for PE. No thoracic aortic dissection. Interval development of extensive bilateral groundglass opacities, with bilateral patchy bilateral airspace disease and small bilateral pleural effusions, most likely due to pulmonary edema. Interval development of bilateral hilar adenopathy. Electronically Signed: Salbador Whipple MD at 23:28 EDT , Physical Exam Const alert and no apparent distress HEENT head/scalp atraumatic and moist oral mucous membranes Resp normal respiratory effort and no retractions Resp Narrative: coarse breath sounds bilaterally. Cardio regular rate, regular rhythm, S1 normal heart sound and S2 normal heart sound GI normal to inspection, nondistended, normoactive bowel sounds and soft to palpation Extremity normal to inspection Neuro Sensorium / Orientation: awake and alert Assessment & Plan Assessment/Plan (1) Acute hypoxemic respiratory failure due to COVID-19: (2) Pneumonia due to COVID-19 virus: PLAN: Plan Acute hypoxic respiratory failure * Down to 86% on Room air with tachynea with RR up to 24. Improved with 4l. ABG pH 7.43 with pCO2 26.6 and pO2 on 74 (while on nasal cannula) * wean oxygen as tolerated. * 2/2 COVID 19 +/- 2ndary bacterial pneumonia Acute COVID 19 * Day 0 likely around 12/01. Per patient, she never had COVID-19 previously and is unvaccinated. * on remdesivir and dexamethasone. * ID following * Expressed to the patient that I am concerned that this may be protracted episode of COVID-19. Possible pneumococcal pneumonia * possible worsening infiltrate could be bacterial. * check SCx, strep and legionella antigens * on CTX. Start azithromycin Chronic conditions: * CA breast, stage IV with mets to lung in April 2020: Patient follows Dr. Martin. Patient on Aromasin and Balversa. * Chronic moderate persistent asthma: Patient is not a smoker. Has asthma and follow-up Dr. Robert Amin, last seen in office in June 2020. On low-dose Spiriva and Wixela. Last PFT in June 2018 was grossly within normal limit. * History of Sweet syndrome and hand-foot syndrome: Patient was on methotrexate in the past that has been discontinued VTE prophylaxis: LMWH. Charges/Coding Visit Charges Inpatient E&M: 51485 Subs Hosp L2
--- NOTE | 2023-12-10 10:38 | CON.PCM.ID_ITS ---
Assessment & Plan Assessment/Plan (1) Pneumonia due to COVID-19 virus: (2) Acute hypoxemic respiratory failure due to COVID-19: PLAN: sx started 11/29, so on the borderline for effectiveness of remdesivir. Procal is pending. Cont remdesivir, dex, and ceftriaxone. CT showed no PE. Will follow, thank you (3) Breast cancer metastasized to lung: QUALIFIERS: Laterality: right Qualified Code(s): C50.911 - Malignant neoplasm of unspecified site of right female breast; C78.00 - Secondary malignant neoplasm of unspecified lung HPI Consult Data Date of Consult: 12/10/23 HPI Narrative Reason for Consultation: covid HPI Narrative: PANCHO SMITH, is a 58 F with metastatic breast cancer, dx 2020, presented with sx starting 11/29 with cough, congestion, n/v/d. No prior covid vaccination. Then progressive fever, chills, dyspnea, loss of sense of taste. Unable to get paxlovid due to drug interactions. Admitted here on O2, started dex, remdesivir, and ceftriaxone. Producing minimal sputum. Full ROS performed and neg except as noted above. [facility] Medical History Skin candidiasis Hyperphosphatemia Diarrhea due to drug Drug-induced xerostomia Hand foot syndrome Urticaria History of right lumpectomy Breast cancer, right Sweet syndrome Moderate persistent asthma Head mass Pneumonia Breast cyst Asthma Hypothyroidism High cholesterol Home Medications ?Medication ?Instructions ?Recorded ?Last Taken ?Type levothyroxine 88 mcg capsule 88 mcg PO QDAY Hormone replacement 03/31/17 12/09/23 History albuterol sulfate 2.5 mg/3 mL 2.5 mg (3 mL) inhalation Q4H PRN 09/06/19 04/11/20 Rx (0.083 %) solution for nebulization shortness of breath or wheezing #180 mL albuterol sulfate 90 mcg/actuation 1 - 2 puff inhalation Q4H PRN 09/06/19 Unknown Rx aerosol inhaler Asthma #3 device lidocaine-prilocaine 2.5 %-2.5 % 1 applicatio TP DAILY PRN PRN Not 04/12/20 Unknown Rx topical cream Specified 30 days #1 tube prochlorperazine maleate 10 mg 10 mg PO Q6H PRN PRN Nausea 10 04/12/20 Unknown Rx tablet days #30 tabs ondansetron 4 mg disintegrating 4 mg PO Q8H PRN nausea and 08/31/21 Unknown Rx tablet vomiting #10 tabs exemestane 25 mg tablet See Rx Instructions .Route 07/30/23 Unknown Rx .COMPLEX #90 tabs erdafitinib 3 mg tablet (Balversa) 3 mg PO DAILY 12/09/23 Unknown History Allergy/AdvReac Type Severity Reaction Status Date / Time No Known Allergies Allergy Verified 12/09/23 21:22 Family History Mother , AGE 36 Acute myocarditis Brother , AGE 34 AIDS Sarcoma Brother , AGE 44 Primary malignant neoplasm of anus Grandmother Lymphoma Surgical History Status post right breast lumpectomy History of right breast biopsy (~12/14/19) History of bunionectomy of left great toe (~1981) History of tonsillectomy and adenoidectomy (~1968) Social History Smoking Status: Never smoker alcohol intake: never substance use type: does not use caffeine: Yes what type of physical activity do you participate in: none Physical Exam Const alert, oriented x3 and no apparent distress General Appearance: cooperative HEENT normocephalic and head/scalp atraumatic Eyes PERRL and EOMs intact bilaterally Neck supple Resp clear to auscultation bilaterally Auscultation: diminished lung sounds Cardio regular rate and regular rhythm GI soft to palpation, non-tender and non-distended Extremity General Extremity: Negative for edema Skin no rashes or lesions noted Neuro CN's II-XII intact bilaterally Lab / Micro Data Attestation: I reviewed the patient's lab results. 12/10/23 06:23 12/10/23 06:23 Labs: Laboratory Results - last 24 hr 12/09/23 21:49: WBC 4.6, RBC 4.54, Hgb 13.9, Hct 40.9, MCV 90.1, MCH 30.6, MCHC 34.0, RDW Std Deviation 41.9, RDW Coeff of Mounika 12.7, Plt Count 175, MPV 12.6 H, Immature Gran % (Auto) 0.200, Neut % (Auto) 71.4 H, Lymph % (Auto) 15.4 L, [place] % (Auto) 12.6 H, Eos % (Auto) 0.4, Baso % (Auto) 0.0, Absolute Neuts (auto) 3.3, Absolute Lymphs (auto) 0.71 L, Nucleated RBC % 0, Sodium 131 L, Potassium 3.6, Chloride 99, Carbon Dioxide 21.0, Anion Gap 12, BUN 18, Creatinine 1.26 H, Estim Creat Clear Calc 50.30, Est GFR (MDRD) Af Amer 56 L, Est GFR (MDRD) Non-Af 46 L, BUN/Creatinine Ratio 14.3, Glucose 109 H, Calcium 9.1, Magnesium 2.2, Total Creatine Kinase 206 H, C-React Prot Ext Range 216.00 H, B-Natriuretic Peptide 4.6 12/09/23 22:04: Lactic Acid 1.2 12/10/23 06:23: WBC 2.8 L, RBC 4.16 L, Hgb 12.7, Hct 37.7, MCV 90.6, MCH 30.5, MCHC 33.7, RDW Std Deviation 42.6, RDW Coeff of Mounika 12.8, Plt Count 182, MPV 12.8 H, Immature Gran % (Auto) 0.400, Neut % (Auto) 74.0 H, Lymph % (Auto) 17.4 L, [place] % (Auto) 7.8, Eos % (Auto) 0.0, Baso % (Auto) 0.4, Absolute Neuts (auto) 2.1, Absolute Lymphs (auto) 0.49 L, Nucleated RBC % 0, Differential Comment SCANNED, Sodium 135 L, Potassium 3.9, Chloride 106, Carbon Dioxide 19.0 L, Anion Gap 9, BUN 14, Creatinine 1.08 H, Estim Creat Clear Calc 58.29, Est GFR (MDRD) Af Amer 67, Est GFR (MDRD) Non-Af 55 L, BUN/Creatinine Ratio 13.0, Glucose 149 H , Calcium 8.7, Total Bilirubin 0.40, AST 128 H, ALT 103 H, Alkaline Phosphatase 91, Total Protein 7.1, Albumin 2.5 L, Globulin 4.6 H, Albumin/Globulin Ratio 0.5 L Micro: Microbiology 12/09/23 21:49 Mucosa - Nose SARS-CoV-2, Influenza & RSV (PCR) - Final SARS-CoV-2 (COVID 19) ABG Data ABG results: ABG 12/10/23 03:02 Specimen Type ART Sample Site R Radial pH 7.43 Bicarbonate Actual 17.5 L Total CO2 18 Base Excess -7 L O2 Saturation 95 O2 % 4.0 ABG pCO2 26.6 L ABG pO2 74 L Ned Test Positive O2 Delivery Device Cannula Vent Mode Not entered Imaging Radiology Impression Chest CTA 12/09/23 21:39 IMPRESSION: Negative for PE. No thoracic aortic dissection. Interval development of extensive bilateral groundglass opacities, with bilateral patchy bilateral airspace disease and small bilateral pleural effusions, most likely due to pulmonary edema. Interval development of bilateral hilar adenopathy. Electronically Signed: Salbador Whipple MD at 23:28 EDT ,
[2023-12-10] MEDS: Azithromycin 500 MG in Dextrose 5%-Water (250mL Bag) 250 ML 250 MG IV (12:44)
[2023-12-10 14:01] LABS: Procalcitonin 0.22 ng/mL (0.00-0.09)
--- NOTE | 2023-12-10 14:28 | CASEMGMT ---
LILIA HAND Assessment Face to Face with patient for initial transition planning/care coordination assessment. LILIA HAND introduced self and role at [facility], pt voices understanding. Pt is A&Ox4 and is resting comfortably in bed and is calm. Care providers, pharmacy, and demographics verified. Admitting dx: Acute Hypoxic RF LACE Strata: 2 PCP: Chastity Huff Specialists: Veronica (Oncology) Preferred Pharmacy: [facility] Insurance: MMO Prescription Benefit: Yes LNOK: Haley Bruce (Cousin) Living Arrangements: Pt lives alone in a single story home with 2 steps to enter ADLs/IADLs: Ind Transportation: Self, Cousin Haley DME: Inhaler, Pulse ox, Nebulizer. Pt is currently requiring additional oxygen. A verbal list of local in-network DME companies provided to the pt at this time. Pt prefers [facility] HHC/SNF: Denies history or needs Pt?s goal: Return to PLOF Plan: Anticipate DC home once medically ready. Follow oxygen needs. 6-Click is 24. Pt denies the need for HHC, OP Tx, SNF, CCN, or Pt Link. Pt states that she feels safe returning home alone once she is medically ready. Pt was cleared by OT. PT note is pending. CM to follow. Heriberto Fuchs RN, CM
[2023-12-10] MEDS: [UNRECOGNIZED DRUG - OTHER] PO (18:35)
[2023-12-10] MEDS: 0.9% Saline Lock 10 ML Syringe IV (22:35)
[2023-12-10] MEDS: Remdesivir 100 MG in 0.9% Normal Saline (250mL Bag) 230 ML 250 MG IV (22:35)
[2023-12-10] MEDS: MELATONIN 10 MG TABLET PO (23:36)
[2023-12-11 03:36] VITALS: BP 102/63; PULSE 62; RESP 18; TEMP 36; O2SAT 97
[2023-12-11 05:11] VITALS: BMI 32.0
[2023-12-11] MEDS: Levothyroxine 88 MCG Tablet PO (05:43)
[2023-12-11 07:35] LABS: ALB/GLOB Ratio 0.6 RATIO (0.9-2.4); AST(SGOT) 172 U/L (15-37); Alanine Aminotransfer ALT/SGPT 153 U/L (13-56); Albumin, Serum 2.4 g/dL (3.2-5.0); Alkaline Phosphatase 85 U/L (45-117); Anion Gap 5 (5-15); BUN 14 mg/dL (7-18); BUN/Creat Ratio 15.1 RATIO (10-20); Calcium,Total 8.9 mg/dL (8.5-10.1); Chloride 112 mmol/L (98-107); Creatinine, Serum 0.93 mg/dL (0.55-1.02); EST Glomerular Filtration Rate 65 mL/min (>60); Est Glom Filt Rate - Afr Amer 79 mL/min (>60); Estimated Creatinine Clearance 67.74 ml/min; Globulin 4.3 g/dL (2.2-4.2); Glucose 109 mg/dL (74-106); Protein, Total 6.7 g/dL (6.4-8.2); Sodium Level 136 mmol/L (136-145)
--- NOTE | 2023-12-11 08:45 | PN.HOSP_ITS ---
Reason for Visit Reason for Visit: Diagnoses Malignant neoplasm of unspecified site of right female breast (12/09/23) Secondary malignant neoplasm of unspecified lung (12/09/23) Pneumonia due to coronavirus disease 2019 (12/09/23) Acute respiratory failure with hypoxia (12/09/23) COVID-19 (12/09/23) Subjective Subjective Feels well. Using PEP. No productive phlegm. Objective Data Objective Data Vital Signs: Vital Signs Temp Pulse Resp BP Pulse Ox O2 Del Method O2 Flow Rate 36.0 C L 62 18 102/63 97 High Flow 8 12/11/23 03:36 12/11/23 03:36 12/11/23 03:36 12/11/23 03:36 12/11/23 03:36 12/11/23 03:45 12/11/23 03:45 Oxygen Flow Rate (L/min) 8 Oxygen Delivery Method High Flow Weight: 84.7 kg Body Mass Index (BMI) 32.0 Intake & Output: Intake and Output for Last 24 Hours 12/09/23 12/10/23 12/11/23 23:59 23:59 23:59 Intake Total 3205 / 3455 250 / 250 Output Total 600 / 600 Balance 2605 / 2855 250 / 250 Lab / Micro Data 12/10/23 06:23 12/11/23 05:38 Labs: Laboratory Results - last 24 hr 12/10/23 06:23: Procalcitonin 0.22 H 12/11/23 05:38: Sodium 136, Potassium 5.0, Chloride 112 H, Carbon Dioxide 20.0 L , Anion Gap 5, BUN 14, Creatinine 0.93, Estim Creat Clear Calc 67.74, Est GFR (MDRD) Af Amer 79, Est GFR (MDRD) Non-Af 65, BUN/Creatinine Ratio 15.1, Glucose 109 H, Calcium 8.9, Total Bilirubin 0.30, AST 172 H, ALT 153 H, Alkaline Phosphatase 85, Total Protein 6.7, Albumin 2.4 L, Globulin 4.3 H, A lbumin/Globulin Ratio 0.6 L Micro: Microbiology 12/10/23 13:30 Urine, Clean Catch Legionella Antigen - Final 12/10/23 13:30 Urine, Clean Catch Streptococcus pneumoniae Antigen (M - Final 12/09/23 21:49 Mucosa - Nose SARS-CoV-2, Influenza & RSV (PCR) - Final SARS-CoV-2 (COVID 19) Physical Exam Const alert and no apparent distress HEENT head/scalp atraumatic and moist oral mucous membranes Resp normal respiratory effort, no retractions, no use of accessory muscles and clear to auscultation bilaterally Cardio regular rate, regular rhythm, S1 normal heart sound and S2 normal heart sound GI normal to inspection, nondistended, normoactive bowel sounds, soft to palpation, non-tender and non-distended Extremity normal to inspection and no clubbing, cyanosis or edema Neuro Sensorium / Orientation: awake Assessment & Plan Assessment/Plan (1) Acute hypoxemic respiratory failure due to COVID-19: (2) Pneumonia due to COVID-19 virus: PLAN: Plan Acute hypoxic respiratory failure * Improving. Decreased oxygen requirements. * Down to 86% on Room air with tachynea with RR up to 24. Improved with 4l. ABG pH 7.43 with pCO2 26.6 and pO2 on 74 (while on nasal cannula) * wean oxygen as tolerated. * 2/2 COVID 19 +/- 2ndary bacterial pneumonia * Encouraged ongoing PEP Acute COVID 19 * Day 0 likely around 12/01. Per patient, she never had COVID-19 previously and is unvaccinated. Will need to quarantine at least through 12/11, plus no fever (without use of antipyretics), improving shortness of breath (decreased oxygen demands) * on remdesivir and dexamethasone. * ID following * Expressed to the patient that I am concerned that this may be protracted episode of COVID-19. Possible pneumococcal pneumonia * possible worsening infiltrate could be bacterial. * check SCx. strep and legionella antigens negative. * on CTX and azithromycin Chronic conditions: * CA breast, stage IV with mets to lung in April 2020: Patient follows Dr. Martin. Patient on Aromasin and Balversa. * Chronic moderate persistent asthma: Patient is not a smoker. Has asthma and follow-up Dr. Robert Amin, last seen in office in June 2020. On low-dose Spiriva and Wixela. Last PFT in June 2018 was grossly within normal limit. * History of Sweet syndrome and hand-foot syndrome: Patient was on methotrexate in the past that has been discontinued VTE prophylaxis: LMWH. Charges/Coding Visit Charges Inpatient E&M: 26501 Subs Hosp L2
[2023-12-11 09:00] VITALS: BP 118/61; PULSE 79; RESP 23; TEMP 36.2; O2SAT 96
[2023-12-11] MEDS: [UNRECOGNIZED DRUG - OTHER] PO (11:50)
[2023-12-11] MEDS: Azithromycin 500 MG in Dextrose 5%-Water (250mL Bag) 250 ML 250 MG IV (11:50)
[2023-12-11] MEDS: dexAMETHasone 4 MG Tablet 6 MG PO (11:50)
[2023-12-11] MEDS: Enoxaparin 30 MG/0.3 ML Syringe SC ×2 (11:50→23:12)
--- NOTE | 2023-12-11 13:12 | PCM.PN.ID ---
Physical Exam Narrative Feeling better, no fever, minimal sputum Const alert and no apparent distress General Appearance: cooperative Resp Auscultation: diminished lung sounds Cardio regular rate and regular rhythm GI soft to palpation and non-tender Skin no rashes or lesions noted ID ID: Route of nutrition/ use of supplements: [] Nutritional Intake: [] IV Site: [] Lovell Catheter: [] Assessment & Plan Assessment/Plan (1) Pneumonia due to COVID-19 virus: (2) Acute hypoxemic respiratory failure due to COVID-19: PLAN: sx started 11/29, so on the borderline for effectiveness of remdesivir. Procal was 0.22. Cont remdesivir, dex, and ceftriaxone. CT showed no PE. 100% on 8L this afternoon. Will follow (3) Breast cancer metastasized to lung: QUALIFIERS: Laterality: right Qualified Code(s): C50.911 - Malignant neoplasm of unspecified site of right female breast; C78.00 - Secondary malignant neoplasm of unspecified lung
[2023-12-11 14:37] VITALS: O2SAT 95
[2023-12-11 15:00] VITALS: BP 101/60; PULSE 74; RESP 20; TEMP 36.4; O2SAT 95
[2023-12-11] MEDS: Ceftriaxone 1 GM/50 ML BAG IV (23:13)
[2023-12-11] MEDS: Remdesivir 100 MG in 0.9% Normal Saline (250mL Bag) 230 ML 250 MG IV (23:13)
[2023-12-11 23:15] VITALS: BP 104/66; PULSE 63; RESP 16; TEMP 36.6; O2SAT 94
[2023-12-11] MEDS: MELATONIN 10 MG TABLET PO (23:21)
[2023-12-11] MEDS: 0.9% Saline Lock 10 ML Syringe IV (23:22)
[2023-12-12] VITALS (9 sets, daily range): BP systolic 104–112; BP diastolic 57–69; PULSE 60–80; RESP 16–23; TEMP 36.1–36.8; O2SAT 95–97; BMI 31.9
[2023-12-12] MEDS: Levothyroxine 88 MCG Tablet PO (06:35)
[2023-12-12 08:29] LABS: Absolute Lymphocyte Count 1.29 X10^3/uL (0.83-4.51); Absolute Neutrophil Count 2.8 X10^3/uL (2.0-7.7); Basophil# 0.01 X10^3/uL; Basophil% 0.2 % (0-1); Hematocrit 38.9 % (37-47); Hemoglobin 12.8 g/dL (12.0-15.0); Lymphocyte # 1.29 X10^3/ul (0.83-4.51); Lymphocyte % 26.4 % (19-41); Mean Corp Hgb Conc 32.9 g/dL (32-36); Mean Corpuscular Hgb 30.5 pg (27.0-32.0); Mean Corpuscular Volume 92.6 fL (81-99); Mean Platelet Vol. 12.7 fl (6.2-12.0); Monocyte# 0.77 X10^3/uL; Monocyte% 15.7 % (0-10); NRBC Flagged by Analyzer 0 % (0-5); Neutrophil % 57.3 % (47-70); POSITIVE MORPHOLOGY YES; Platelet Count 230 K/mm3 (150-450); RBC Distribution Width CV 13.3 % (11.6-14.6); RBC Distribution Width SD 45.3 fl (35.1-43.9); White Blood Count 4.9 K/mm3 (4.4-11.0)
[2023-12-12 08:30] LABS: Differential Indicated SCAN CRITERIA MET
--- NOTE | 2023-12-12 08:44 | PN.HOSP_ITS ---
Reason for Visit Reason for Visit: Diagnoses Malignant neoplasm of unspecified site of right female breast (12/09/23) Secondary malignant neoplasm of unspecified lung (12/09/23) Pneumonia due to coronavirus disease 2019 (12/09/23) Acute respiratory failure with hypoxia (12/09/23) COVID-19 (12/09/23) Subjective Subjective Feeling well. Breathing well. Oxygen able to be weaned down. Objective Data Objective Data Vital Signs: Vital Signs Temp Pulse Resp BP Pulse Ox O2 Del Method O2 Flow Rate 36.1 C L 60 16 104/62 97 Nasal Cannula 6 12/12/23 03:37 12/12/23 03:37 12/12/23 03:37 12/12/23 03:37 12/12/23 03:37 12/12/23 08:30 12/12/23 08:30 Oxygen Flow Rate (L/min) 6 Oxygen Delivery Method Nasal Cannula Weight: 84.5 kg Body Mass Index (BMI) 31.9 Intake & Output: Intake and Output for Last 24 Hours 12/10/23 12/11/23 12/12/23 23:59 23:59 23:59 Intake Total 3205 / 3455 505 / 1005 1050 / 1050 Output Total 600 / 600 Balance 2605 / 2855 505 / 1005 1050 / 1050 Lab / Micro Data 12/12/23 08:09 12/12/23 08:09 Labs: Laboratory Results - last 24 hr 12/12/23 08:09: WBC 4.9, RBC 4.20, Hgb 12.8, Hct 38.9, MCV 92.6, MCH 30.5, MCHC 32.9, RDW Std Deviation 45.3 H, RDW Coeff of Mounika 13.3, Plt Count 230, MPV 12.7 H , Immature Gran % (Auto) 0.400, Neut % (Auto) 57.3, Lymph % (Auto) 26.4, [place] % (Auto) 15.7 H, Eos % (Auto) 0.0, Baso % (Auto) 0.2, Absolute Neuts (auto) 2.8, Absolute Lymphs (auto) 1.29, Nucleated RBC % 0 Micro: Microbiology 12/09/23 22:04 Blood Culture (Wb) - Arm Left Blood Culture - Preliminary No growth in 48 hours. 12/11/23 09:30 Sputum, Expectorated/Coughed Gram Stain - Final 12/10/23 13:30 Urine, Clean Catch Legionella Antigen - Final 12/10/23 13:30 Urine, Clean Catch Streptococcus pneumoniae Antigen (M - Final 12/09/23 21:49 Mucosa - Nose SARS-CoV-2, Influenza & RSV (PCR) - Final SARS-CoV-2 (COVID 19) Physical Exam Const alert and no apparent distress HEENT head/scalp atraumatic and moist oral mucous membranes Resp normal respiratory effort, no retractions, no use of accessory muscles and clear to auscultation bilaterally Cardio regular rate, regular rhythm, S1 normal heart sound and S2 normal heart sound GI normal to inspection, nondistended, normoactive bowel sounds, soft to palpation, non-tender and non-distended Extremity normal to inspection and full ROM Neuro Sensorium / Orientation: awake Assessment & Plan Assessment/Plan (1) Acute hypoxemic respiratory failure due to COVID-19: (2) Pneumonia due to COVID-19 virus: PLAN: Plan Acute hypoxic respiratory failure * Improving. Decreased oxygen requirements down to 6 liters. * Down to 86% on Room air with tachynea with RR up to 24. Improved with 4l. ABG pH 7.43 with pCO2 26.6 and pO2 on 74 (while on nasal cannula) * wean oxygen as tolerated. * 2/2 COVID 19 +/- 2ndary bacterial pneumonia * Encouraged ongoing PEP * Will give the patient a furosemide challenge and check home oxygen evaluation in the morning. If patient can maintain 6 L or less with activity, that I dissipate the patient could be discharged on . Patient advised that she may be on oxygen for possibly several weeks depending on her overall course. Acute COVID 19 * Day 0 likely around 12/01. Per patient, she never had COVID-19 previously and is unvaccinated. Will need to quarantine at least through 12/11, plus no fever (without use of antipyretics), improving shortness of breath (decreased oxygen demands). DW [employer] on 12/10, ok to DC quarantine after 10- days as long as afebrile (w/o use of antipyretics and continued improved oxygen requirements). * on remdesivir and dexamethasone. * ID following * Expressed to the patient that I am concerned that this may be protracted episode of COVID-19. Possible pneumococcal pneumonia * possible worsening infiltrate could be bacterial. * check SCx. strep and legionella antigens negative. * on CTX and azithromycin Chronic conditions: * CA breast, stage IV with mets to lung in April 2020: Patient follows Dr. Martin. Patient on Aromasin and Balversa. * Chronic moderate persistent asthma: Patient is not a smoker. Has asthma and follow-up Dr. Robert Amin, last seen in office in June 2020. On low-dose Spiriva and Wixela. Last PFT in June 2018 was grossly within normal limit. * History of Sweet syndrome and hand-foot syndrome: Patient was on methotrexate in the past that has been discontinued VTE prophylaxis: LMWH. Charges/Coding Visit Charges Inpatient E&M: 34578 Subs Hosp L2
[2023-12-12] MEDS: dexAMETHasone 4 MG Tablet 6 MG PO (09:40)
[2023-12-12] MEDS: Azithromycin 500 MG in Dextrose 5%-Water (250mL Bag) 250 ML 250 MG IV (09:42)
[2023-12-12] MEDS: Enoxaparin 30 MG/0.3 ML Syringe SC ×2 (09:42→22:00)
[2023-12-12] MEDS: 0.9% Saline Lock 10 ML Syringe IV ×3 (09:43→15:34)
[2023-12-12 09:58] LABS: ALB/GLOB Ratio 0.6 RATIO (0.9-2.4); AST(SGOT) 65 U/L (15-37); Alanine Aminotransfer ALT/SGPT 115 U/L (13-56); Albumin, Serum 2.6 g/dL (3.2-5.0); Alkaline Phosphatase 86 U/L (45-117); Anion Gap 7 (5-15); BUN 18 mg/dL (7-18); BUN/Creat Ratio 19.9 RATIO (10-20); Calcium,Total 9.1 mg/dL (8.5-10.1); Chloride 109 mmol/L (98-107); EST Glomerular Filtration Rate 68 mL/min (>60); Est Glom Filt Rate - Afr Amer 82 mL/min (>60); Estimated Creatinine Clearance 69.91 ml/min; Globulin 4.2 g/dL (2.2-4.2); Glucose 107 mg/dL (74-106); Protein, Total 6.8 g/dL (6.4-8.2); Sodium Level 138 mmol/L (136-145)
[2023-12-12] MEDS: [UNRECOGNIZED DRUG - OTHER] PO (12:29)
[2023-12-12] MEDS: Furosemide 40 MG/4 ML Vial IV (15:34)
[2023-12-12] MEDS: Remdesivir 100 MG in 0.9% Normal Saline (250mL Bag) 230 ML 250 MG IV (21:52)
[2023-12-12] MEDS: Ceftriaxone 1 GM/50 ML BAG IV (21:52)
[2023-12-12] MEDS: MELATONIN 10 MG TABLET PO (22:00)
[2023-12-13 04:00] VITALS: BP 111/80; PULSE 63; RESP 20; TEMP 35.3; O2SAT 95
[2023-12-13 04:01] VITALS: BMI 32.5
[2023-12-13] MEDS: Levothyroxine 88 MCG Tablet PO (04:36)
[2023-12-13] MEDS: dexAMETHasone 4 MG Tablet 6 MG PO (08:21)
[2023-12-13] MEDS: Enoxaparin 30 MG/0.3 ML Syringe SC (08:21)
[2023-12-13 08:30] VITALS: BP 113/76; PULSE 68; RESP 16; TEMP 36.5; O2SAT 81; O2SAT 88; O2SAT 90; O2SAT 94
[2023-12-13 11:25] VITALS: BP 108/66; PULSE 75; RESP 16; TEMP 36.5; O2SAT 95
--- NOTE | 2023-12-13 11:37 | DS.PCM_ITS ---
Providers Date of Admission: 12/09/23 Primary Care Physician: Dr. Chastity Huff, DO Consultations 12/10/23 01:08 Consult: Infectious Disease Routine Consulting Provider: Hector Chavez Reason for Consult: covid pneumonia, acute hypoxic resp failure. ca breast mets to lung, asthma EMERGENT Consult: No Notified: Yes Date Notified: 12/10/23 Time Notified: 01:08 Method of Notification: Text 12/10/23 01:42 Consult: Infectious Disease Routine Consulting Provider: Hector Chavez Reason for Consult: Covid-19, acute hypoxic resp failure EMERGENT Consult: No Notified: Yes Date Notified: 12/09/23 Time Notified: 23:42 Method of Notification: Text Reason For Visit: ACUTE HYPOXIC RESPIRATORY FAILURE Diagnosis Discharge Diagnosis (1) Acute hypoxemic respiratory failure due to COVID-19: Status: Acute Code(s): U07.1 - COVID-19; J96.01 - Acute respiratory failure with hypoxia (2) Pneumonia due to COVID-19 virus: Status: Acute Code(s): U07.1 - COVID-19; J12.82 - Pneumonia due to coronavirus disease 2019 Plan Acute hypoxic respiratory failure * Improving. Decreased oxygen requirements down to 6 liters. * Down to 86% on Room air with tachynea with RR up to 24. Improved with 4l. ABG pH 7.43 with pCO2 26.6 and pO2 on 74 (while on nasal cannula) * wean oxygen as tolerated. * 2/2 COVID 19 +/- 2ndary bacterial pneumonia * Encouraged ongoing PEP * Patient had ambulatory pulse ox where she required 2 L with activity and rest to maintain sat above 90%. Patient will be discharged with oxygen. Oxygen testing reviewed and patient is ambulatory in home and in the community and requires home oxygen with portability. * Though I suspect her symptoms are more COVID related and her CAT scan findings are more COVID-related, given her breast cancer, would continue to treat her for bacterial pneumonia. Acute COVID 19 * Day 0 likely around 12/01. Per patient, she never had COVID-19 previously and is unvaccinated. Will need to quarantine at least through 12/11, plus no fever (without use of antipyretics), improving shortness of breath (decreased oxygen demands). [employer] on 12/10, ok to DC quarantine after 10- days as long as afebrile (w/o use of antipyretics and continued improved oxygen requirements). * Patient will have completed for days of remdesivir. Patient completed 10-day course of dexamethasone. Possible pneumococcal pneumonia * possible worsening infiltrate could be bacterial. * check SCx. strep and legionella antigens negative. * on CTX and azithromycin Chronic conditions: * CA breast, stage IV with mets to lung in April 2020: Patient follows Dr. Martin. Patient on Aromasin and Balversa. * Chronic moderate persistent asthma: Patient is not a smoker. Has asthma and follow-up Dr. Robert Amin, last seen in office in June 2020. On low-dose Spiriva and Wixela. Last PFT in June 2018 was grossly within normal limit. * History of Sweet syndrome and hand-foot syndrome: Patient was on methotrexate in the past that has been discontinued VTE prophylaxis: LMWH. Discharge home Medications at Discharge Home Medications levothyroxine 88 mcg capsule 88 mcg PO QDAY Hormone replacement 03/31/17 albuterol sulfate 2.5 mg/3 mL (0.083 %) solution for nebulization 2.5 mg (3 mL) inhalation Q4H PRN shortness of breath or wheezing #180 mL 09/06/19 albuterol sulfate 90 mcg/actuation aerosol inhaler 1 - 2 puff inhalation Q4H PRN Asthma #3 device 09/06/19 lidocaine-prilocaine 2.5 %-2.5 % topical cream 1 applicatio TP DAILY PRN PRN Not Specified 30 days #1 tube 04/12/20 prochlorperazine maleate 10 mg tablet 10 mg PO Q6H PRN PRN Nausea 10 days #30 tabs 04/12/20 ondansetron 4 mg disintegrating tablet 4 mg PO Q8H PRN nausea and vomiting #10 tabs 08/31/21 exemestane 25 mg tablet See Rx Instructions .Route .COMPLEX cancer #90 tabs 07/30/23 erdafitinib 3 mg tablet (Balversa) 3 mg PO DAILY cancer 12/09/23 amoxicillin 875 mg-potassium clavulanate 125 mg tablet 1 tab PO Q12H #10 tabs 12/13/23 dexamethasone 4 mg tablet 6 mg (1.5 x 4 mg) PO DAILY #5 tabs 12/13/23 Hospital Course Operations None Procedures None Summary of Care Provided Minutes Spent on Discharge: 32 Hospital Course: Patient presents with a week history of shortness of breath. Patient was found to have COVID-19. Patient had diffuse infiltrates throughout more consistent with viral pathology but patient was treated with remdesivir, dexamethasone as well as ceftriaxone and azithromycin. Is unclear if patient had underlying bacterial pneumonia. Patient did require high flow oxygen up to about 12 L but started turning the corner and has progressively improved. Patient did receive a one-time furosemide challenge with 40 mg on the . Today patient is on 2 L nasal cannula. I do anticipate the patient will require oxygen for at least the next several days maybe a couple more weeks depending on how she does. Patient will complete a course of dexamethasone. Also, given her history of breast cancer, will continue to treat her empirically for bacterial pneumonia. While she was here, she was receiving azithromycin and had some redness on her back and neck on the right side. Symptoms, cords and nurse, resolved after the antibiotics were discontinued. Patient has a port and so she was not even having a peripheral IV infusion so I do not feel that this was a drug rash. As to what the rash was I am not sure but patient has been notified to be aware if she happens to go on azithromycin in the future that if she has experienced any kind of redness to discontinue that. Physical Exam Const alert and no apparent distress Constitutional Narrative: Up in chair. Afebrile. No respiratory distress. Resp normal respiratory effort, no retractions, no use of accessory muscles and clear to auscultation bilaterally Cardio regular rate, regular rhythm and S1 normal heart sound Weight / BMI Weight Weight: 86.1 kg Body Mass Index (BMI) 32.5 ABG / Lab / Microbiology Data 12/12/23 08:09 12/12/23 08:09 Microbiology: Microbiology 12/11/23 09:30 Sputum, Expectorated/Coughed Gram Stain - Final 12/11/23 09:30 Sputum, Expectorated/Coughed Respiratory Culture - Preliminary Staphylococcus aureus 12/09/23 22:04 Blood Culture (Wb) - Arm Left Blood Culture - Preliminary No growth in 48 hours. 12/10/23 13:30 Urine, Clean Catch Legionella Antigen - Final 12/10/23 13:30 Urine, Clean Catch Streptococcus pneumoniae Antigen (M - Final 10/09/24 21:49 Mucosa - Nose SARS-CoV-2, Influenza & RSV (PCR) - Final SARS-CoV-2 (COVID 19) D/C Instructions Discharge Diet: No restrictions Meaningful Use Info Meaningful Use Meaningful Use Diagnoses (Choose all that apply): None applicable Ischemic Stroke Statin Dosing Therapy Reference: STATIN DOSE THERAPY REFERENCE: * Patients > 75 years receive moderate or high dose statin therapy. * Patients 75 years or YOUNGER should receive HIGH intensity statin dose unless contraindicated. You will be required to document reason for non-treatment if statin daily dose does not meet guidelines. HIGH DOSE STATIN THERAPY DAILY Atorvastatin > than or = to 40 mg Rosuvastatin > than or = to 20 mg Amlodipine + Atorvastatin > than or = to 2.5/40 mg Ezetimibe + Simvastatin 10/80 mg Simvastatin 80mg Discharge Plan Admission Admit Date/Time: 12/09/23 23:38 Primary Reason for Your Visit: Pneumonia Attending Provider: Gold Buckley Primary Care Provider: Chastity Huff Consulting Providers: Hector Chavez; Oni Colby Discharge Orders/Prescriptions Prescriptions: New dexamethasone 4 mg Tablet 6 mg PO DAILY Qty: 5 0RF amoxicillin-pot clavulanate 875-125 mg tablet 1 tab PO Q12H Qty: 10 0RF Continued levothyroxine 88 mcg capsule 88 mcg PO QDAY albuterol sulfate 2.5 mg /3 mL (0.083 %) solution for nebulization 2.5 mg INHALATION Q4H PRN (Reason: shortness of breath or wheezing) Qty: 180 6RF albuterol sulfate 90 mcg/actuation HFA aerosol inhaler 1 - 2 puff INHALATION Q4H PRN (Reason: Asthma) Qty: 3 3RF prochlorperazine maleate 10 MG tablet 10 mg PO Q6H PRN PRN (Reason: Nausea) 10 Days Qty: 30 2RF lidocaine-prilocaine 30 GM cream 1 applicatio TP DAILY PRN PRN (Reason: Not Specified) 30 Days Qty: 1 2RF ondansetron 4 mg tablet,disintegrating 4 mg PO Q8H PRN (Reason: nausea and vomiting) Qty: 10 0RF Balversa 3 mg tablet 3 mg PO DAILY exemestane 25 mg tablet See Rx Instructions .ROUTE .COMPLEX Qty: 90 3RF Dose Instruction: TAKE 1 TABLET DAILY Rx Instructions: TAKE 1 TABLET DAILY Referrals / Follow Up: Chastity Huff DO [Primary Care Provider] - Within 2 Weeks Disposition Disposition (needs filled in before D/C Order can be placed): Home, Self Care Charges/Coding Visit Charges Inpatient E&M: 91316 Disch Hosp >30min
[2023-12-13] MEDS: [UNRECOGNIZED DRUG - OTHER] PO (12:22)
[2023-12-13] MEDS: 0.9% Saline Lock 10 ML Syringe IV (12:59)
== END 2023-12-13 14:19 | disposition home or self-care (01) | DRG 177 ==
LOC: ED 23:41 → PCU 12-10 01:06
PROVIDERS: Admitting Provider Internal Medicine; Emergency Provider Emergency Medicine; PCP Family Medicine
DX: U07.1 COVID-19 (principal); J96.01 Acute respiratory failure with hypoxia; J12.82 Pneumonia due to coronavirus disease 2019; J13 Pneumonia due to Streptococcus pneumoniae; C78.00 Secondary malignant neoplasm of unspecified lung; C50.911 Malignant neoplasm of unspecified site of right female breast; E03.9 Hypothyroidism, unspecified; J45.40 Moderate persistent asthma, uncomplicated; E78.00 Pure hypercholesterolemia, unspecified; Z79.810 Long term (current) use of selective estrogen receptor modulators (SERMs); Z79.811 Long term (current) use of aromatase inhibitors; Z79.899 Other long term (current) drug therapy
CPT/HCPCS: 36415; 36600; 71275; 80048; 80053; 82550; 82803; 83605; 83735; 83880; 84145; 85025; 86140; 87040; 87070; 87077; 87186; 87205; 87449; 87631; 93005; 94640; 97110; 97166; 97535; 97802; 99285; J7030; J7050; Q9967; A4216; J0248; J1940

== ENCOUNTER → 2024-04-04 | Outpatient (CLI) | payer OTHER, SELFPAY ==
[2020-03-08 09:09] VITALS: BMI 31.4
--- NOTE | 2024-04-04 13:11 | CT_ITS ---
PROCEDURE: CT CHEST AND ABD W/ CONTRAST REASON FOR EXAM: History of metastatic breast cancer. TECHNIQUE: Chest and abdomen CT with intravenous contrast. Multiple axial tomographic images were obtained. Coronal and sagittal reconstruction was obtained as well. CONTRAST: 100 mL of Isovue-300 was injected intravenously. COMPARISON: Comparison is made with prior study dated September 21, 2023. FINDINGS: CT CHEST: Hardware: A right-sided port a catheter is seen with the tip in the superior vena cava. Postoperative changes are seen in the right breast with the overlying skin thickening. Lymph nodes: Stable small bilateral axillary lymph nodes. Surgical clips are seen in the right axilla. Heart and Vasculature: Normal heart size. No pericardial effusion. Thoracic aorta and pulmonary arteries are unremarkable. No significant coronary artery calcification is seen. Lungs and Airways: Once again, there is evidence of multiple bilateral pulmonary nodules. The nodules have increased in size as well as a number as compared to prior study. Persistent increased reticular pattern within both lungs suggestive of lymphangitic spread. Pleura: No pleural effusion. No pneumothorax. Multilevel disc space narrowing and spondylosis of the visualized thoracic vertebrae. CT ABDOMEN: Liver: Diffuse fatty infiltration. Questionable 2 adjacent 9 mm hypodense nodules in the right lobe of the liver adjacent to the gallbladder fossa. Gallbladder: Unremarkable. Spleen: Unremarkable. Pancreas: Unremarkable. Adrenals: 1.3 cm fat containing nodule in the lateral limb of the right adrenal gland. Kidneys: Stable cortical scarring along the lateral aspect of the left kidney. Bowel: Visualized loops of bowel in the upper abdomen are unremarkable. Lymph nodes: No suspicious lymph node enlargement at the upper abdomen. Vasculature: Major vascular structures at the upper abdomen are unremarkable. Peritoneum / Retroperitoneum: No ascites or free air at the upper abdomen. Bones: Degenerative changes of the spine. CT/CT Chest AND Abd W/ Contrast IMPRESSION: Increase in number and size of the pulmonary nodules seen in both lungs as desc ribed. Persistent increased reticular pattern in both lungs suggestive of possible lym phangitic spread. Fatty infiltration of the liver. Questionable 2, adjacent 9 mm hypodense nodul es in the right lobe of the liver adjacent the gallbladder fossa. One or more dose reduction techniques were used (e.g., Automated exposure contr ol, adjustment of the mA and/or kV according to patient size, use of iterative reconstruction technique). Reading Location: [place] [address]
[2024-04-04] MEDS: 0.9% Saline Lock 10 ML Syringe IV (13:55)
== END | disposition home or self-care (01) ==
PROVIDERS: PCP Family Medicine; Referring Provider Internal Medicine Medical Oncology; Visit Provider Internal Medicine Medical Oncology
DX: C50.911 Malignant neoplasm of unspecified site of right female breast (principal); C78.00 Secondary malignant neoplasm of unspecified lung
CPT/HCPCS: 71260; 74160; Q9967; A4216

== ENCOUNTER 2024-05-19 09:15 | Day surgery (SDC) | payer OTHER, SELFPAY ==
[2020-03-08 09:09] VITALS: BMI 31.4
[2024-05-19] VITALS (9 sets, daily range): BP systolic 102–121; BP diastolic 53–73; PULSE 69–86; RESP 12–18; TEMP 36.1–36.8; O2SAT 92–100; BMI 29.1
--- NOTE | 2024-05-19 10:17 | PCM.HP.BLA ---
History and Physical Date of Admission: 05/19/24 Intake Vital Signs 05/04/2509:27 05/13/2513:09 Height 5 ft 4 in Weight: 174 lb 3 oz 174 lb BMI 29.9 BP 124/68 H 124/78 H Blood Pressure Location Lt brachial Rt brachial Position Sitting Sitting Respiration 18 17 Pulse 95 88 Pulse Source Monitor Monitor Temp 98.1 F Pulse Oximetry (%) 94 97 Oxygen Delivery Method room air room air Intake Visit Reasons: AXILLARY BIOPSY Chief Complaint: axillary biopsy Is patient in pain?: No Allergies azithromycin Allergy (Mild, Verified 05/13/24 14:10) redness Medications ?Medication ?Instructions ?Recorded ?Confirmed ?Type levothyroxine 88 mcg capsule 88 mcg PO QDAY Hormone replacement 03/31/17 05/13/24 History albuterol sulfate 2.5 mg/3 mL 2.5 mg (3 mL) inhalation Q4H PRN 09/06/19 05/13/24 Rx (0.083 %) solution for nebulization shortness of breath or wheezing #180 mL albuterol sulfate 90 mcg/actuation 1 - 2 puff inhalation Q4H PRN 09/06/19 05/13/24 Rx aerosol inhaler Asthma #3 device lidocaine-prilocaine 2.5 %-2.5 % 1 applicatio TP DAILY PRN PRN Not 04/12/20 05/13/24 Rx topical cream Specified 30 days #1 tube prochlorperazine maleate 10 mg 10 mg PO Q6H PRN PRN Nausea 10 04/12/20 05/13/24 Rx tablet days #30 tabs ondansetron 4 mg disintegrating 4 mg PO Q8H PRN nausea and 08/31/21 05/13/24 Rx tablet vomiting #10 tabs exemestane 25 mg tablet See Rx Instructions .Route 07/30/23 05/13/24 Rx .COMPLEX cancer #90 tabs erdafitinib 3 mg tablet (Balversa) 3 mg PO DAILY cancer 12/09/23 05/13/24 History tamoxifen 20 mg tablet 100 mg (5 x 20 mg) PO QDAY 60 days 05/04/24 05/13/24 Rx #300 tabs PFSH Medical History Abnormal finding on imaging of liver History of breast cancer Hand foot syndrome Breast cancer metastasized to lung Skin candidiasis Hyperphosphatemia Diarrhea due to drug Drug-induced xerostomia Hand foot syndrome Urticaria History of right lumpectomy Breast cancer, right Sweet syndrome Moderate persistent asthma Head mass Pneumonia Breast cyst Asthma Hypothyroidism High cholesterol Surgical History Status post right breast lumpectomy History of right breast biopsy (~12/14/19) History of bunionectomy of left great toe (~1981) History of tonsillectomy and adenoidectomy (~1968) Family History Mother , AGE 36 Acute myocarditisBrother , AGE 34 AIDS SarcomaBrother , AGE 44 Primary malignant neoplasm of anusGrandmother Lymphoma Social History Smoking Status: Never smoker alcohol intake: never substance use type: does not use caffeine: Yes what type of physical activity do you participate in: none HPI HPI HPI: Patient is a 58-year-old female with metastatic breast cancer who presents with a new nodule in her right chest wall ROS General General: Yes breast cancer; No weight change, appetite, fatigue, colon cancer or weakness HEENT HEENT: No difficulty swallowing, eye injury, eye surgery, swollen glands or hoarseness Endo Endocrine: No thyroid disease, diabetes mellitus, thyroid cancer, Hair loss, heat intolerance or cold intolerance Skin Skin: No rash or changing moles Breast Breast: No left breast lump, right breast lump, nipple discharge, breast pain, abnormal mammogram, abnormal US or breast enlargement Musc Musculoskeletal: No back problems, arthritis, rheumatoid arthritis, gout or joint pain Cardio Cardiovascular: No murmur, pacemaker, heart disease, atrial fibrillation, high blood pressure, heart attack, heart stent, palpitations, shortness of breath with exertion or chest pain Psych Psychiatric: No depression, anxiety or hearing voices Resp Respiratory: Yes shortness of breath, No sleep apnea, Yes cough, No COPD, Yes asthma, No emphysema and No wheezing Gastro Gastrointestinal: No abdominal pain, No nausea or vomiting, No diarrhea, No constipation, No blood in stool, No acid reflux, No hemorrhoids, No ulcers, No gallbladder problem and No black,tarry stools Leo Hematologic: No blood thinners, No blood disorders, No bleeding, No anemia and No blood clots Neuro Neurologic: No system reviewed and no additional complaints, except as documented, No as per HPI, No abnormal gait, No abnormal hearing, No abnormal movements, No abnormal speech, No behavioral changes, No burning sensations, No confusion, No convulsions, No disequilibrium, No dizziness, No localized weakness, No frequent falls, No headache(s), No lack of coordination, No loss of vision, No memory loss, No numbness, No other visual disturbances, No radicular pain, No restless legs, No sensory deficit, No syncope, No tingling, No tremor(s), No weakness and No other Exam Const General: cooperative Orientation: alert and oriented x3 HENMT Head: normal to inspection Neck Neck: normal visual inspection and full ROM Chest Chest palpation & inspection: normal inspection of the chest Resp Effort & Inspection: normal respiratory effort Auscultation: clear to auscultation bilaterally Cardio Rate: regular rate Rhythm: regular rhythm GI Inspection: non-distended Palpation: soft and nontender Skin General: no rashes or lesions noted Neuro General: patient alert and patient oriented x3 Extrem General: full ROM Psych Appearance: grossly normal Mental Status: mental status grossly normal Assessment and Plan Assessment and Plan (1) Breast cancer metastasized to lung: Status: Chronic Qualifiers: Laterality: right Qualified Code(s): C50.911 - Malignant neoplasm of unspecified site of right female breast; C78.00 - Secondary malignant neoplasm of unspecified lung Comment: Metastatic Invasive ductal carcinoma, FGFR 1 amplification, MMR normal, PD-L1 negative. On fourth line therapy: Started Aromasin on 10/16/2020 and Started Erdafitinib on 12/24/2020. Hand/foot syndrome resolved, now on 3mg Balversa since 05/21/2021. CT chest on 07/11/2021 shows resolution of bilateral lung nodules, still has increased interstitial markings. CT chest/abdomen 11/28/2021 shows stable disease. Clinically stable. CT c/a on 06/19/2022 reviewed, shows stable reticular changes in the lungs. ctDNA on 09/22/2022 was 2. ctDNA was 1/96 on 11/17/2022. CT c/a on 01/12/2023 shows increase in interstitial markings. R/O progressive disease. O2 sat is 95%. Transbronchial Lung biopsy on 01/26/2023 showed rare GATA3 positive cells suggestive of Metastatic breast cancer, ER + 100%, AL +15%. ctDNA on 02/04/2023 was 0.94. Clinically stable. Guardant testing on 03/08/2023 showed no tumor alterations in sample. CT chest on 09/21/23 showed improvement in interstitial markings. Comes for follow up. ctDNA on 04/06/2024 was 25. PET/CT 04/19/2024 shows progressive disease in multifocal bony disease, Lungs, adrenal. Discussed disease management, change hormone therapy from Aromasin to High dose Tamoxifen, Pt agreed. Plan: The patient has a new nodule in her right breast which is superficial. She had a recent PET scan which showed progression of her disease throughout her body. There is new osseous lesions as well as pleural lesions and increase in size of her lung lesions. I discussed biopsying the nodule with Dr. Martin and he would like this nodule removed for tissue markers. I discussed this with her and discussed the risk of infection and bleeding. Patient understands the risks and will proceed. Jeffrey Patton MD Pager: [facility] [address] [place] [address], [address] [place] [address] Office: I have examined the patient and the H&P has been reviewed. There are no clinical changes since date of exam.
--- NOTE | 2024-05-19 11:00 | BRBX_PTH ---
PATIENT: PANCHO SMITH LOC: [facility] U#:[id number] AGE/SX: 58/F ROOM: RE05/19/[address]: Dr. Jeffrey Patton MD : 1965 BED: DIS: 05/19/2024 SPEC #: [id number] RECD: 05/20/24 09:59 STATUS: PRAMOD REQ #: [id number] LORELEI: 05/19/24 11:[address]: Jeffrey Patotn DEPT: SURGICAL PATHOLOGY RECD BY: Dick Nicholas ENTERED: 05/20/24 10:00 SP TYPE: BREAST BX OTHR DR: Dr. Chatsity Huff, DO Tissues: A - Right breast, NOS Procedures: Immunohistochemical Stains Surgery Specimen Level IV IHC Stain ADDITIONAL HEADER OPERATION: Excision, breast mass or biopsy PRE-OP DIAGNOSIS: Breast cancer metastasized to lung TISSUE SUBMITTED: A- 2 excisional breast masses, right side Ischemic Time: 1 minute Fixation Time: 30 hours MICROSCOPIC DIAGNOSIS A. Right breast, mass, excisional biopsy x2: * Invasive ductal carcinoma, grade 1 (tubule 2, nuclear 2, mitosis 1), 0.9 cm, margins free. ER: positive (100% intermediate to strong intensity) CO: positive (100% strong to intermediate intensity) [id number]: equivocal (2+) [id number]: PENDING (to be reported in an addendum) * Invasive ductal carcinoma, grade 1 (tubule 2, nuclear 2, mitosis 1), 0.6 cm, involving a peripheral surgical margin (present in the deep dermis of the fragment with skin) ER: positive (100% intermediate to strong intensity) CO: positive (100% strong to intermediate intensity) [id number]: equivocal (2+) [id number]: PENDING (to be reported in an addendum). COMMENT A preliminary diagnosis was reported to Dr Patton's nurse (Jessa) 06/01/24. MICROSCOPIC DESCRIPTION Slides are reviewed. CK4/5 highlights a non-invasive portion of the tissue (A2). These tests were developed and their performance characteristics determined by [facility]. They may not have been cleared or approved by the U.S. Food and Drug Administration. The FDA has determined that such clearance or approval is not necessary. The above immunohistochemical/dualISH markers are ordered and reviewed by the Pathologist. GROSS DESCRIPTION A. Received in fixative is one container labeled with the patient's name and designated Right breast mass. The specimen consists of two masses of fatty tissue. One mass measures 2.4 x 2 x 1.5cm and the second mass measures 2.5 x 1.7 x 1cm. The specimens are completely unoriented. Sectioned in their entirety upon serially sectioning the first mass, there appears to be a small management developer-color nodule measuring 0.6 x 0.5 x 0.5cm. The first biopsy is submitted in total in cassettes A1-A4. The second biopsy has a firm white nodule measuring 1.2 x 0.6 x 0.5cm. The second biopsy is serially sectioned and entirely submitted in cassettes A5-A7. 05/20/2024 [facility]:[id number] ,[id number] ADDENDUM ADDENDUM ADDENDUM ADDENDUM ADDENDUM ADDENDUM ADDENDUM ADDENDUM ADDENDUM ADDENDUM ADDENDUM ADDENDUM ADDENDUM ADDENDUM ADDENDUM ADDENDUM ADDENDUM ADDENDUM ADDENDUM ADDENDUM ADDENDUM ADDENDUM ADDENDUM ADDENDUM ADDENDUM ADDENDUM 06/15/2024 09:02 ADDENDUM 06/15/2024 09:02 ADDENDUM 06/15/2024 09:02 ADDENDUM 06/15/2024 09:02 ADDENDUM 06/15/2024 09:02 This addendum is added to incorporate an outside pathology consultation report. The case was examined at [facility] by Dr. Knight (#[id number]) and the following diagnosis was rendered. A. Right breast, mass, excisional biopsy x2: HER2 FISH (A2, A6): Negative/ not amplified. HER2 SCORE REPORT (BLOCK A6) HER2 SCORE: NEGATIVE HER2/CEP17 RATIO: 1.2 HER2 COPY NUMBER/CELL: 3.2 HER2 SCORE REPORT (BLOCK A2) HER2 SCORE: NEGATIVE HER2/CEP17 RATIO: 1.2 HER2 COPY NUMBER / CELL: 3.4 Please see complete above mentioned consultation report in EMR
--- NOTE | 2024-05-19 11:37 | PCM.PRE.AN2 ---
ASA Classification* ASA Classification ASA Classification: 3 Assessment & Plan Anesthesia* Anesthesia Assessment Anesthesia Assessment: Discussed sedation and/or anesthesia options, risks, benefits, and alternatives with patient/parents/legal guardian/POA. Questions invited. The patient/parents/legal guardian/POA seems to understand and agrees to proceed with anesthesia plan. Reviewed the physical assessment, medical history, allergy history and patient home medications list prior to surgery/procedure/anesthetic and documented any changes. Performed airway and anesthesia risk assessments. Anesthesia Type Anesthesia Type: MAC History Source History Obtained from:: Patient and Chart Anesthesia Focused Assessment* Temperature: 98.3 F Pulse Rate: 76 Blood Pressure: 116/73 Respiratory Rate: 18 Pulse Ox: 97 Oxygen Delivery Method: Room Air Airway Assessment Mouth opens: >3 cm Mallampati Score: III Teeth Condition: Caps/Crowns (Patient has crown left lower molar. It is tight.) Neck Range of motion (ROM): Limited ROM (Slight decrease in extension) Focused Labs Anesthesia Preop lab: CBC WBC 6.5 K/mm3 (4.4-11.0) 04/04/24 12:55 04/04/24 RBC 4.57 M/mm3 (4.2-5.4) 04/04/24 12:55 04/04/24 Hgb 14.3 g/dL (12.0-15.0) 04/04/24 12:55 04/04/24 Hct 42.0 % (37-47) 04/04/24 12:55 04/04/24 Plt Count 150 K/mm3 (150-450) 04/04/24 12:55 04/04/24 CHEMISTRY Potassium 3.7 mmol/L (3.5-5.1) 04/04/24 12:55 04/04/24 Sodium 140 mmol/L (136-145) 04/04/24 12:55 04/04/24 Magnesium 2.2 mg/dL (1.6-2.6) 02/10/24 14:12 02/10/24 Phosphorus 3.7 mg/dL (2.5-4.9) 02/10/24 14:12 02/10/24 BUN 10 mg/dL (7-18) 04/04/24 12:55 04/04/24 Creatinine 1.32 mg/dL (0.55-1.02) H 04/04/24 12:55 04/04/24 Glucose 103 mg/dL (74-106) 04/04/24 12:55 04/04/24 TSH 1.30 uIU/mL (0.358-3.74) 04/09/21 12:47 04/09/21 COAG PT 13.6 SECONDS (11.7-14.9) 04/23/20 11:15 04/23/20 Pre-Assessment Diagnosis/Proposed Procedure Planned Operative Procedure(s): EXCISION RIGHT BREAST BIOPSY Anesthesia History Anesthesia History - rib stiffener and heel dipper: Anesthesia History - rib stiffener and heel dipper Hx Hospitalization Yes: 12/2023 COVID 05/17/24 13:09 Any Problems With Anesthesia No 05/17/24 13:09 Cholinesterase deficiency No 05/17/24 13:09 You/Your Family Experience No 05/17/24 13:09 fever (hyperthermia) with Relationship Recent Exposure to Contagious No 05/19/24 09:35 Disease Does patient have nerve No 05/17/24 13:09 stimulator Patient instructed to have device shut off --Does patient have Pacemaker No 05/19/24 09:35 or ICD? When Was Last Pacemaker Check QUESTION #4 FULL TEXT: You/Your Family Experience fever (hyperthermia) with Anesthesia Last Oral Intake Last Oral intake: Last Oral Intake NPO since 00:00 05/19/24 09:35 Meds taken in AM with sips of Yes 05/19/24 09:35 water? Meds patient instructed to levothyroxine 05/19/24 09:35 take am of surgery Any additional information?: Yes Meds taken in AM with sips of water?: Yes PONV PONV - rib stiffener and heel dipper: PONV - rib stiffener and heel dipper Female Yes 05/17/24 13:09 HX of Motion Sickness No 05/17/24 13:09 HX of N/V After Surgery No 05/17/24 13:09 Non-Smoker Yes 05/17/24 13:09 Duration of Surgery greater No 05/17/24 13:09 than 60 minutes Number of Risk Factors 2 05/17/24 13:09 PONV Score Moderate Risk 05/17/24 13:09 Height & Weight Height & Weight: Anesthesia: Height & Weight Height 5 ft 4 in 05/19/24 09:35 Weight: 77 kg 05/19/24 09:35 Body Mass Index (BMI) 29.1 05/19/24 09:35 Respiratory Assessment Respiratory Assessment - rib stiffener and heel dipper: Respiratory Tract Infection Hx - rib stiffener and heel dipper Hx Respiratory Tract Infection No 05/17/24 13:09 STOP Sleep Apnea STOP Sleep Apnea - rib stiffener and heel dipper: STOP Sleep Apnea - rib stiffener and heel dipper Hx Hypertension No 05/17/24 13:09 Hx Sleep Apnea No 05/17/24 13:09 CPAP BIPAP Do you snore loudly (louder No 05/17/24 13:09 than talking or can be heard Do you often feel tired/ No 05/17/24 13:09 fatigued/ sleepy during daytime? Has anyone observed you stop No 05/17/24 13:09 breathing during sleep? STOP Results Negative 05/17/24 13:09 QUESTION #5 FULL TEXT : Do you snore loudly (louder than talking or can be heard through closed doors)? 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 Specify any problems Hx of Preganancy in last 3 No 05/17/24 13:09 Months Nurse Filling Out Transfusion DSCHRIBER 05/17/24 13:09 & Questions: Date: 05/17/24 05/17/24 13:09 Time: 13:10 05/17/24 13:09 Patient unable to answer at this time (ie. confused, unrespo /Reproduction History /Reproductive History - rib stiffener and heel dipper: /Reproductive Hx- rib stiffener and heel dipper Hx Now No 05/17/24 13:09 Gestational Age (in weeks): EDC: Hx Hx Para Hx Section SAB No 05/17/24 13:09 Active Medications Active Medications: Current Medications Generic Name Dose Route Start Last Admin Trade Name Freq PRN Reason Stop Dose Admin Sodium Chloride 10 - 40 ml 05/19/24 09:51 0.9% Saline Lock 10 Ml Syringe IV UD PRN Port-a-Cath (VAD)/R Port Flush Sodium Chloride 10 - 40 ml 05/19/24 09:51 0.9 % Nacl (Sterile) Posiflush 10 Ml IV UD PRN Port access or dressing change [facility] Medical History Wears glasses Post-menopausal Cancer Thyroid disease Fatty liver Restless legs Migraine headache Heartburn Non-smoker Shortness of breath on exertion Abnormal finding on imaging of liver History of breast cancer Skin candidiasis Hand foot syndrome Hyperphosphatemia Diarrhea due to drug Drug-induced xerostomia Hand foot syndrome Urticaria Breast cancer metastasized to lung History of right lumpectomy Breast cancer, right Sweet syndrome Moderate persistent asthma Head mass Breast cyst Asthma Hypothyroidism Home Medications ?Medication ?Instructions ?Recorded ?Last Taken ?Type levothyroxine 88 mcg capsule 88 mcg PO QDAY Hormone replacement 03/31/17 05/19/24 History albuterol sulfate 2.5 mg/3 mL 2.5 mg (3 mL) inhalation Q4H PRN 09/06/19 04/11/20 Rx (0.083 %) solution for nebulization shortness of breath or wheezing #180 mL albuterol sulfate 90 mcg/actuation 1 - 2 puff inhalation Q4H PRN 09/06/19 Unknown Rx aerosol inhaler Asthma #3 device lidocaine-prilocaine 2.5 %-2.5 % 1 applicatio TP DAILY PRN PRN Not 04/12/20 Unknown Rx topical cream Specified 30 days #1 tube erdafitinib 3 mg tablet (Balversa) 3 mg PO DAILY cancer 12/09/23 Unknown History tamoxifen 20 mg tablet 100 mg (5 x 20 mg) PO QDAY 60 days 05/04/24 Unknown Rx #300 tabs Allergy/AdvReac Type Severity Reaction Status Date / Time No Known Allergies Allergy Verified 05/19/24 09:35 Family History Mother , AGE 36 Acute myocarditis Brother , AGE 34 AIDS Sarcoma Brother , AGE 44 Primary malignant neoplasm of anus Grandmother Lymphoma Surgical History History of vascular access device Status post right breast lumpectomy History of right breast biopsy (~12/14/19) History of bunionectomy of left great toe (~1981) History of tonsillectomy and adenoidectomy (~1968) Social History Smoking Status: Never smoker alcohol intake: never substance use type: does not use caffeine: Yes what type of physical activity do you participate in: none Review of Systems (Anesthesia) ROS Narrative System reviewed and no additional complaints, except as documented.
[2024-05-19] MEDS: Bupivacaine Mpf 0.5% 30 ML VIAL (12:32)
--- NOTE | 2024-05-19 12:57 | PCM.OPRPT ---
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 Type of Anesthesia: Local MAC RN Documented Start/Stop Times: Operation Date: 05/19/24 11:00 Case Time Into Pre-Op 05/19/24 09:28 Anesthesia Start 05/19/24 12:21 Into Room 05/19/24 12:21 Procedure Start 05/19/24 12:32 Procedure End 05/19/24 12:47 Anesthesia End 05/19/24 12:51 Out of Room 05/19/24 12:51 Into Recovery 05/19/24 12:54 Procedure Start Time: 12:32 Procedure Stop Time: 12:47 Select all DRAINS/GRAFTS/IMPLANTS that apply: None Estimated Blood Loss: 10 Specimen collected: Yes Description of specimen(s) removed: Right breast mass x 2 Description of surgery: Ultrasound was used to localize the 2 masses prior to surgery. She was then taken to surgery and MAC anesthesia was induced. The right chest was prepped and draped in usual sterile fashion. Next an elliptical incision was marked and injected with local anesthetic. Incision was made and electrocautery was used to maintain hemostasis. The first mass was adherent to the skin it was removed with the skin segment. The second mass was more superior and then it was removed using electrocautery dissection. The cavity was irrigated and suctioned dry and hemostasis was obtained using electrocautery. The area was irrigated and suctioned dry once more. Next the skin was closed with interrupted 3-0 Vicryl sutures and a running 4-0 Monocryl suture and Dermabond was applied. Patient was taken to PACU in stable condition and tolerated the procedure well. Surgical Findings: Right breast mass x 2 Complications Complications: No Admit VTE Documentation VTE Mechan Device Prophylaxis: SCD's
--- NOTE | 2024-05-19 12:59 | PCM.POST.ANE ---
Anesthesia: Postop Eval I Current Vital Signs Temperature: 97.9 F Pulse Rate: 86 Blood Pressure: 115/73 Respiratory Rate: 12 Pulse Ox: 100 Assessment Airway patent: Yes Spontaneous unlabored respirations: Yes nausea: No Vomiting: No Anesthesia Complication: No Fluid Hydration Crystalloid volume administer (ml): 500 Total IV fluid infused: 500 Progress Note Anesthesia document: Postop Eval 1 completed: Yes
--- NOTE | 2024-05-19 12:59 | DCINST_ITS ---
Discharge Instructions Diet Discharge Diet: Light diet - advance as tolerated Activity Discharge Activity: May Not Drive (for 2-3 days or while taking narcotic pain medications.) May shower in (days): 1 Weight Bearing Status: Weight bearing as tolerated Lifting Restrictions: none Dressing / Incision Call your doctor if your incision/area has: Continuous Slow Oozing, Sudden Increased Bleeding, Increased Pain/ Swelling, Increased Redness, Foul Smelling Discharge and Swelling at the incision site Call your doctor if you observe: Fever of 101 or Higher Suture Line Care: Avoid Pulling/Pushing and Avoid Pinching/Bending Cleanse incision/area with: Soap & Water Follow Up Care Please Follow Up With: Jeffrey Patton MD When: Please call to schedule 2 week follow up appointment. [phone] Test Results: Test results from this visit will be discussed in further detail at your follow- up appointment, if applicable. Discharge Plan Admission Attending Provider: Jeffrey Patton Primary Care Provider: Chastity Huff Instructions Print Language: Romanian Discharge Orders/Prescriptions Prescriptions: New oxycodone 5 mg tablet 5 - 10 mg PO Q6H PRN (Reason: pain) 5 Days Qty: 10 0RF No Action levothyroxine 88 mcg capsule 88 mcg PO QDAY albuterol sulfate 2.5 mg /3 mL (0.083 %) solution for nebulization 2.5 mg INHALATION Q4H PRN (Reason: shortness of breath or wheezing) Qty: 180 6RF albuterol sulfate 90 mcg/actuation HFA aerosol inhaler 1 - 2 puff INHALATION Q4H PRN (Reason: Asthma) Qty: 3 3RF tamoxifen 20 mg tablet 100 mg PO QDAY 60 Days Qty: 300 0RF lidocaine-prilocaine 30 GM cream 1 applicatio TP DAILY PRN PRN (Reason: Not Specified) 30 Days Qty: 1 2RF Balversa 3 mg tablet 3 mg PO DAILY Referrals / Follow Up: Chastity Huff DO [Primary Care Provider] - Disposition Disposition (needs filled in before D/C Order can be placed): Home, Self Care
[2024-05-19] MEDS: Acetaminophen 500 MG Tablet 1000 MG PO (13:41)
--- NOTE | 2024-05-19 14:05 | SUR.PHASEII ---
Right chest port flushed with 0.9 NS 10mL flush before deaccessing
--- NOTE | 2024-05-19 14:21 | POSTOPAN2_ITS ---
Anesthesia Postop Eval I Sum Postop Eval Completion status Anesthesia document: Postop Eval 1 completed: Yes Anesthesia Postop Eval I Summary Anesthesia Postop Eval I Summary: Anesthesia Postop Eval I: Assessment Summary Airway patent Yes 05/19/24 14:20 NURSE RECEPTIONIST.CSIR Spontaneous unlabored Yes 05/19/24 14:20 NURSE RECEPTIONIST.CSIR respirations Mental status nausea No 05/19/24 14:20 NURSE RECEPTIONIST.CSIR Vomiting No 05/19/24 14:20 NURSE RECEPTIONIST.CSIR Anesthesia Postop Eval I: Fluid Summary Crystalloid volume administer 500 05/19/24 14:20 NURSE RECEPTIONIST.CSIR (ml) Colloids volume administered ( ml) Blood Product volume administered (ml) Total IV fluid infused 500 05/19/24 14:20 NURSE RECEPTIONIST.CSIR Anesthesia Postop Eval I: Summary Notes Anesthesia Complication No 05/19/24 14:20 NURSE RECEPTIONIST.CSIR Anesthesia Complication Comment: Post-operative progress note Anesthesia: Postop Eval II Evaluation Mental status: Awake Pain Level: 1 nausea: No Vomiting: No
--- NOTE | 2024-05-19 14:21 | PCM.POSTANE2 ---
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 Spontaneous unlabored Yes 05/19/24 14:20 DOPE MAINTENANCE WORKER.CSIR respirations Mental status nausea No 05/19/24 14:20 DOPE MAINTENANCE WORKER.CSIR Vomiting No 05/19/24 14:20 DOPE MAINTENANCE WORKER.CSIR Anesthesia Postop Eval I: Fluid Summary Crystalloid volume administer 500 05/19/24 14:20 DOPE MAINTENANCE WORKER.CSIR (ml) Colloids volume administered ( ml) Blood Product volume administered (ml) Total IV fluid infused 500 05/19/24 14:20 DOPE MAINTENANCE WORKER.CSIR Anesthesia Postop Eval I: Summary Notes Anesthesia Complication No 05/19/24 14:20 DOPE MAINTENANCE WORKER.CSIR Anesthesia Complication Comment: Post-operative progress note Anesthesia: Postop Eval II Evaluation Mental status: Awake Pain Level: 1 nausea: No Vomiting: No
--- NOTE | 2024-05-19 14:50 | PCM.POST.ANE ---
Anesthesia: Postop Eval I Current Vital Signs Temperature: 97.9 F Pulse Rate: 86 Blood Pressure: 105/53 Respiratory Rate: 15 Pulse Ox: 98 Oxygen Delivery Method: Room Air Assessment Airway patent: Yes Spontaneous unlabored respirations: Yes Mental status: Awake and Calm nausea: No Vomiting: No Anesthesia Complication: No Fluid Hydration Crystalloid volume administer (ml): 20 Total IV fluid infused: 20 Progress Note Anesthesia document: Postop Eval 1 completed: Yes
== END 2024-05-19 14:04 | disposition home or self-care (01) ==
LOC: SDC 09:16 → AC 09:21
PROVIDERS: PCP Family Medicine; Referring Provider Surgery; Visit Provider Surgery
PROC: (CPT 19120; principal; 2024-05-19 10:45)
DX: C50.911 Malignant neoplasm of unspecified site of right female breast (principal); C78.01 Secondary malignant neoplasm of right lung; C78.02 Secondary malignant neoplasm of left lung; C79.70 Secondary malignant neoplasm of unspecified adrenal gland; C79.51 Secondary malignant neoplasm of bone; Z17.0 Estrogen receptor positive status [ER+]
CPT/HCPCS: 19120; 88305; 88341; 88342; A4648; A4216; J2405

== ENCOUNTER → 2024-09-15 | Outpatient (CLI) | payer OTHER, SELFPAY ==
[2020-03-08 09:09] VITALS: BMI 31.4
--- NOTE | 2024-09-15 13:56 | CT_ITS ---
PROCEDURE: CT CHEST, ABD, PEL W/CONTRAST 09/15/2024 REASON FOR EXAM: METASTATIC BREAST CA-IV ONLY TECHNIQUE: Chest, abdomen and pelvis CT with intravenous contrast. Coronal and Sagittal reconstruction series were provided. One or more dose reduction techniques were used (e.g., Automated exposure control, adjustment of the mA and/or kV according to patient size, use of iterative reconstruction technique. PATIENT PREPARATION: Per protocol ORAL CONTRAST TYPE: None. CONTRAST: Isovue-300 VOLUME: 100mL RADIATION DOSE SUMMARY: CTDlvol: 11.6 mGy DLP: 1118.93 mGycm COMPARISON: Prior study dated April 04, 2024. FINDINGS: CT CHEST: Hardware: A right-sided port a catheter is seen with the tip in the superior vena cava. Lymph nodes: Surgical clips are seen in the right axillary region. Tiny bilateral benign-appearing axillary lymph nodes. Heart and Vasculature: The heart is nonenlarged. No evidence of coronary artery calcification. Lungs and Airways: Once again, there are multiple scattered bilateral pulmonary nodules. Overall, these have decreased in size as compared to prior study. No new nodular seen. Once again, there is persistent increased interstitial markings in both lungs suggestive of possible lymphangitic spread versus possible reaction to the chemotherapy agents. Pleura: No pleural effusion. Bones: Degenerative changes of the thoracic spine. Abnormal appearance of the posterior aspect of the 10th rib as well as the superior aspect of the 11th and 12th ribs suggestive of possible metastatic deposits. CT ABDOMEN/PELVIS: Liver: Diffuse fatty infiltration. Gallbladder: Unremarkable. Spleen: Normal size. Pancreas: Normal size without evidence of mass surrounding inflammation or ductal dilation. Adrenals: Unremarkable Kidneys: Normal renal sizes. No hydronephrosis. Bladder: Unremarkable Reproductive Organs: Heterogeneous appearance of the uterus in the region of the fundus. This may represent a degenerating fibroid. Endometrial thickening should be ruled out Bowel: Unremarkable Appendix: Unremarkable Lymph nodes: Unremarkable. Vasculature: Mild diffuse atherosclerotic calcifications are noted. Peritoneum / Retroperitoneum: Unremarkable Bones: Multiple vertebral osseous sclerosis in keeping with metastatic deposits. New since prior study. Metastatic deposits in the proximal femurs bilaterally. CT/CT Chest, Abd, Pel w/Contrast IMPRESSION: Interval decrease in size of the previously seen pulmonary nodules. Persistent increased interstitial markings in both lungs. Heterogeneous appearance of the uterus as described. Correlation with ultrasou nd recommended. Bony metastasis as described. Reading Location: [id number]
== END | disposition home or self-care (01) ==
LOC: CT 13:55
PROVIDERS: PCP Family Medicine; Referring Provider Internal Medicine Medical Oncology; Visit Provider Internal Medicine Medical Oncology
DX: C50.111 Malignant neoplasm of central portion of right female breast (principal)
CPT/HCPCS: 71260; 74177; Q9967; A4216

== ENCOUNTER → 2025-02-20 | Outpatient (CLI) | payer OTHER, SELFPAY ==
[2020-03-08 09:09] VITALS: BMI 31.4
--- NOTE | 2025-02-20 07:54 | NM_ITS ---
PROCEDURE: BONE SCAN WHOLE BODY 02/20/2025 REASON FOR EXAM: BONE METS/BREAST CA TECHNIQUE: Procedure Code: NMBO Modality: NM Procedure: BONE SCAN WHOLE BODY Whole-body gamma camera imaging after radiopharmaceutical administration. RADIOPHARMACEUTICAL: 26.0 mCi Technetium-99m MDP IV COMPARISON: PET scan dated 04/19/2024. Radionuclide bone scan dated 04/05/2020 FINDINGS: Numerous areas of focal intense osseous uptake of multiplied since the previous study. These areas are too numerous to count. Multiple cranial, bilateral ribs, sternoclavicular joints, scapular, shoulders, pelvic, sacral, and femurs. Areas of increased osseous uptake throughout the vertebral column. Mild focal areas of increased uptake are noted in the medial aspects of both knees. NM/Bone Scan Whole Body IMPRESSION: 1. Findings on the current whole-body bone scan indicate extensive progression of the patient's metastatic disease from her known breast cancer. 2. Suspicion of mild degenerative arthritis, medial aspects of both knees. Reading Location: [place] [id number]
[2025-02-20] MEDS: 0.9% Saline Lock 10 ML Syringe IV (08:06)
== END | disposition home or self-care (01) ==
LOC: NM 07:53
PROVIDERS: PCP Family Medicine; Referring Provider Internal Medicine Medical Oncology; Visit Provider Internal Medicine Medical Oncology
DX: C50.111 Malignant neoplasm of central portion of right female breast (principal); C79.51 Secondary malignant neoplasm of bone
CPT/HCPCS: 78306; A9503